=== PATIENT | female | born 1945 | race Caucasian/White ===

== ENCOUNTER 2020-03-04 08:22 | Outpatient (CLI) | payer OTHER, SELFPAY ==
--- NOTE | 2020-03-04 08:32 | MM_ITS ---
WS: [id number] BILATERAL SCREENING DIGITAL MAMMOGRAM WITH CAD HISTORY: SCREENING COMPARISON: 12/12/2018 and 11/19/2017 Bilateral CC and MLO views submitted. Computer aided detection analyzed. Breast composition: There are scattered areas of fibroglandular density. Area of architectural distor tion anteriorly on the RIGHT CC projection. Benign calcifications in each breast. MM/[place] [id number] IMPRESSION: BI-RADS: 0-Incomplete: Need additional imaging evaluation FOLLOW UP: Need Additional Imaging RIGHT breast: Spot compression views (CC ). True ML. Ultrasound to follow if ab normality persists.
== END 2020-03-04 08:23 | disposition home or self-care (01) ==
PROVIDERS: PCP Family Medicine; Visit Provider Family Medicine
DX: Z12.31 Encounter for screening mammogram for malignant neoplasm of breast (principal); R92.1 Mammographic calcification found on diagnostic imaging of breast
CPT/HCPCS: 77067

== ENCOUNTER 2020-04-03 12:53 | Outpatient (CLI) | payer OTHER, SELFPAY ==
--- NOTE | 2020-04-03 13:01 | US_ITS ---
WS: [id number] ADDITIONAL VIEWS RIGHT BREAST RIGHT breast ultrasound, limited HISTORY: ABNORMAL/INCONCLUSIVE FINDING ON IMAGING OF BREAST COMPARISON: 03/04/2020, 12/12/2018, 11/19/2017, 05/15/2016 Compression views right CC and MLO projection. True ML also submitted. The area of distortion central to the nipple resolves with additional imaging. There is persistent il l-defined and obscured dense fibroglandular tissue in the anterior and lateral RIGHT breast. As christian red to prior examinations the asymmetries are not significantly changed but not improved either. Calc ifications in the anterior RIGHT breast. RIGHT breast ultrasound, limited. Very dense fibroglandular tissue in the RIGHT breast at 9:00 near the area look. No discrete mass. Th ere is an ill-defined hypoechoic nodule measuring 8 x 5 x 6 mm 9:00 4 cm from the nipple of indetermi shilo etiology. Otherwise no suspicious findings. US/US breast RT limited* [id number] IMPRESSION: BI-RADS: 4-Suspicious Finding-Biopsy Should Be Considered FOLLOW-UP: Biopsy Recommended Ultrasound-guided biopsy recommended of the ill-defined hypoechoic nodule at 9: 00, 4 cm from the nipple. This may be a patch of fibroglandular tissue. Not see n on prior ultrasound from 2015.
== END 2020-04-03 12:54 | disposition home or self-care (01) ==
LOC: RADSHAW 12:56
PROVIDERS: PCP Family Medicine; Visit Provider Family Medicine
DX: R92.8 Other abnormal and inconclusive findings on diagnostic imaging of breast (principal); N63.15 Unspecified lump in the right breast, overlapping quadrants
CPT/HCPCS: 76642; 77065

== ENCOUNTER 2020-04-18 07:42 | Outpatient (CLI) | payer OTHER, SELFPAY ==
--- NOTE | 2020-04-18 08:45 | US_ITS ---
WS: [id number] ULTRASOUND-GUIDED RIGHT BREAST BIOPSY CLINICAL INFORMATION: Abnormal mammogram, Right breast nodule COMPARISON: None. FINDINGS: The procedure including risks, benefits, and complications were discussed with the patient who agreed to proceed. Using sterile technique patient was prepped and draped in the usual sterile fashion. Aft er 1% lidocaine utilizing real-time ultrasound guidance 5 14-gauge cores were obtained of the right b reast lesion at the 9 o'clock position. Subsequently a titanium clip was placed in the biopsy cavity. No immediate complications. Pathology demonstrates atypical ductal hyperplasia. No invasion identified. US/[place] [id number] IMPRESSION: 1. Uncomplicated ultrasound-guided right breast biopsy. 2. The pathology demonstrates atypical ductal hyperplasia. No invasion identif ied. BI-RADS: Post Biopsy FOLLOW UP: Surgical Biopsy Recommended PATHOLOGY DEMONSTRATES ATYPICAL DUCT HYPERPLASIA. RECOMMEND BREAST SURGERY CONS ULTATION FOR WIRE LOCALIZATION AND RESECTION.
== END 2020-04-18 07:43 | disposition home or self-care (01) ==
LOC: RAD 07:55
PROVIDERS: PCP Family Medicine; Visit Provider Family Medicine
DX: N60.91 Unspecified benign mammary dysplasia of right breast (principal); R92.8 Other abnormal and inconclusive findings on diagnostic imaging of breast; N63.10 Unspecified lump in the right breast, unspecified quadrant
CPT/HCPCS: 19083; 88305

== ENCOUNTER → 2020-05-19 13:58 | Outpatient (BNVA) | payer OTHER, SELFPAY | PROVIDERS: PCP Family Medicine; Visit Provider Surgery | DX: Z01.812 Encounter for preprocedural laboratory examination (principal); Z20.828 Contact with and (suspected) exposure to other viral communicable diseases | CPT/HCPCS: 87635 ==

== ENCOUNTER 2020-05-23 08:46 | Day surgery (SDC) | payer OTHER, SELFPAY ==
--- NOTE | 2019-05-23 | US_ITS ---
WS: [id number] ULTRASOUND-GUIDED RIGHT BREAST NEEDLE LOCALIZATION HISTORY: RIGHT breast needle localization. Procedure, risks and complications were explained to the patient. Consent is obtained. RIGHT breast mass localized at 9:00, 4 cm from the nipple. Skin is cleansed with ChloraPrep and anesthetized with 1% buffered lidocaine. Needle and guidewire placed to the area of concern with no complications. Ultrasound guidance performed during the needle localization. Guidewire is left within the lesion. Guidewire secured and no complications encountered. Patient is being transported to the OR suite. Specimen radiograph is also reviewed. Localization wire and RIGHT breast mass are present. RECOMMENDATIONS: 6 month diagnostic mammogram follow-up RIGHT breast. US/[place] [id number] IMPRESSION: 1. Uncomplicated wire localization of RIGHT breast mass at 9:00, 4 cm from the nipple. 2. Specimen contains the mass localized. PATHOLOGY RESULTS: Small focus of atypical ductal hyperplasia at the biopsy site. No malignancy. Dictated By: Pina Mcmahon DO Signed By: Signed Date/Time: DD/ 0941 MTDD
[2020-05-22 11:26] VITALS: BMI 49.1
--- NOTE | 2020-05-23 07:58 | US_ITS ---
WS: [id number] ULTRASOUND-GUIDED RIGHT BREAST NEEDLE LOCALIZATION HISTORY: RIGHT breast needle localization. Procedure, risks and complications were explained to the patient. Consent is obtained. RIGHT breast mass localized at 9:00, 4 cm from the nipple. Skin is cleansed with ChloraPrep and anesthetized with 1% buffered lidocaine. Needle and guidewire pl aced to the area of concern with no complications. Ultrasound guidance performed during the needle lo calization. Guidewire is left within the lesion. Guidewire secured and no complications encountered. Patient is being transported to the OR suite. Specimen radiograph is also reviewed. Localization wire and RIGHT breast mass are present. RECOMMENDATIONS: 6 month diagnostic mammogram follow-up RIGHT breast. US/[place] [id number] IMPRESSION: 1. Uncomplicated wire localization of RIGHT breast mass at 9:00, 4 cm from the nipple. 2. Specimen contains the mass localized. PATHOLOGY RESULTS: Small focus of atypical ductal hyperplasia at the biopsy sit e. No malignancy.
[2020-05-23 08:33] VITALS: BP 182/98; PULSE 79; RESP 18; TEMP 35.9; O2SAT 95
--- NOTE | 2020-05-23 09:07 | W.PM.OPSUD ---
Surgery/Procedure H&P Update DATE OF PROCEDURE: May 23, 2020 DATE H&P PERFORMED: 05/07/20 H&P UPDATE INFORMATION: No changes to prior documentation PLANNED PROCEDURE: Operation Date: 05/23/20 10:00 Proposed Procedures p Breast Biopsy Needle Localization(Right) - Yoni Lerner MD
[2020-05-23] MEDS: sodium chloride 0.9% 1,000 ML 30 ML IV (09:25)
--- NOTE | 2020-05-23 09:29 | P.ANESASSM_ITS ---
Pre-Anesthetic Assessment Pre-Anesthetic Assessment: Height/Weight: Height 1.65 m Weight 133.81 kg Temp Pulse Resp BP Pulse Ox 96.7 F L 79 18 182/98 95 05/23/20 08:33 05/23/20 08:33 05/23/20 08:33 05/23/20 08:33 05/23/20 08:33 Preop Diagnosis: Breast lump Proposed Procedure: Operation Date: 05/23/20 10:00 Proposed Procedures p Breast Biopsy Needle Localization(Right) - Yoni Lerner MD Familial anesthetic complications: None Was Beta Mily taken within 24 hours: N/A Last intake: Intake Last Liquid Date 05/23/20 Last Liquid Time 05:00 Last Solid Date 05/22/20 Last Solid Time 22:00 Social: Social History: No alcohol and No tobacco Exam: Pre-Anes Outpt Exam: alert, oriented x 3, clear to auscultation bilatera lly and regular rate & rhythm Airway: Cervical ROM: WNL MP: 4 Dentition: Other (implants in front) Pulmonary: Pulmonary: Asthma and COPD Comments: 2 L NC at night CV/HEM: CV/HEM: DVT and Palp Metabolic: Metabolic: Hyperlipidemia Neuropsych: Neuropsych: CVA (2016 - no residual deficits per patient, but her husbands states she doesn't talk as well as she used to) Anesthetic Plan: ASA status: 3 Anesthesia: MAC Other: Pt took phentermine yesterday Risk of > 500 ml blood loss (7ml/kg in children): No Other Pertinent Information: Patient and surgeon both counselled/informed of risk of proceeding when not off phentermine for 7 days. Although there are no official guidelines for stopping phentermine several recommendations have been made to stop 7 to 14 days prior to elective surgery. Patient and surgeon informed of risk of hemodynamic instability/catecholamine depletion/myocardial irritation associated with phentermine and anesthesia. This morning I did give patient option to reschedule, but she would like to proceed. Procedure is low risk, under MAC, with no alterations in fluid status, no risk for major blood loss, and low painful stimulus both intraop and post op. Meds/Allergies Current Medications: Current Medications Generic Name Dose Route Start Last Admin Trade Name Freq PRN Reason Stop Dose Admin Sodium Chloride 1,000 mls @ 30 ml s/hr 05/23/20 08:00 05/23/20 09:25 Sodium Chloride 0.9% IV 05/24/20 07:59 30 mls/hr .Q24H ELENA Administration PFSH Anesthesia PFSH: Social History (Updated 05/22/20 @ 10:58 by Blaire Franklin RN) Smoking and tobacco status: former smoker Data Anesthesia Cardiac Studies: No Data to Display
--- NOTE | 2020-05-23 10:53 | P.OP_ITS ---
Operative Report Date of procedure: May 23, 2020 Pre-op Diagnosis: Atypical ductal hyperplasia of the right breast. Pre-op Diagnosis: Post-op diagnosis: same Procedure Done: Right breast lumpectomy following preoperative needle localization. Specimens removed/disposition: Right breast specimen with wire in place. Surgeon: Yoni Lerner Anesthesia: MAC Estimated blood loss (mL): 5 Complications: None. Condition: stable Disposition: observation Procedure: The patient was brought to the operating room and was placed in a claudio pine position on the operating room table. A monitored anesthetic was induced. The right breast was prepped and draped in a sterile fashion, taking care not to disturb the localization wire which had been placed in radiology preoperatively. A combination of 2% lidocaine and 0.5% bupivacaine with 1-200,000 parts epinephrine was used for local anesthesia throughout the procedure. A curvilinear incision was carried out on the lateral aspect of the breast. Cautery was used to enter the breast tissue. The localization wire, which was entering inferiorly, was then brought into the incision. The tissue around the tip of the wire was completely excised using a combination of cautery and sharp dissection. The specimen was removed with the wire in place and was sent to radiology. The wound was irrigated with saline and 1 small bleeding point was controlled with cautery. No additional abnormalities were seen or palpated anywhere in the wound. The skin was reapproximated using a running subcuticular suture of 4-0 Vicryl. Benzoin and Steri-Strips were placed over the incision and a sterile bandage followed. The patient was taken to the recovery area in stable condition postoperatively.
[2020-05-23 11:07] VITALS: BP 125/70; PULSE 73; RESP 18; TEMP 36.6; O2SAT 98
[2020-05-23 11:24] VITALS: BP 152/77; PULSE 74; RESP 18; TEMP 36.9; O2SAT 95
--- NOTE | 2020-05-23 19:28 | ANE.PACU2 ---
Inpatient post-anesthesia follow up: Airway intact: Yes Vital signs: Temperature 98.4 F Pulse Rate 74 Respiratory Rate 18 Blood Pressure 152/77 Pulse Oximetry 95 Oxygen Delivery Me thod Room Air Oxygen Flow Rate Fraction of Inspir ed Oxygen Hydration adequate: Yes Nausea and vomiting: No Pain level: 2 Mental status: Baseline
== END 2020-05-23 11:40 | disposition home or self-care (01) ==
PROVIDERS: PCP Family Medicine; Visit Provider Surgery
PROC: (CPT 19301; principal; 2020-05-23 10:00)
DX: N60.91 Unspecified benign mammary dysplasia of right breast (principal); J44.9 Chronic obstructive pulmonary disease, unspecified; Z99.81 Dependence on supplemental oxygen; Z86.718 Personal history of other venous thrombosis and embolism; E78.5 Hyperlipidemia, unspecified; Z86.73 Personal history of transient ischemic attack (TIA), and cerebral infarction without residual deficits; Z87.891 Personal history of nicotine dependence; M19.90 Unspecified osteoarthritis, unspecified site
CPT/HCPCS: 19301; 12345; 19285; 88305; 96365; C1889; J0690; J2704; J3490; J7030

== ENCOUNTER → 2020-10-07 14:12 | Outpatient (BNVA) | payer OTHER, SELFPAY | PROVIDERS: PCP Family Medicine; Referring Provider Family Medicine; Visit Provider Specialist | DX: M25.561 Pain in right knee (principal); M25.562 Pain in left knee | CPT/HCPCS: 73560; 73565 ==

== ENCOUNTER 2021-01-02 10:47 | Outpatient (CLI) | payer OTHER, SELFPAY ==
[2021-01-02 11:15] VITALS: BP 144/89; PULSE 98; RESP 18; TEMP 36.6; O2SAT 93; BMI 48.4
[2021-01-02 11:44] VITALS: BP 122/78; PULSE 98; RESP 17; O2SAT 92
[2021-01-02 13:00] VITALS: BP 128/81; PULSE 92; RESP 16; TEMP 36.3; O2SAT 93
== END 2021-01-02 14:40 | disposition home or self-care (01) ==
PROVIDERS: PCP Family Medicine; Visit Provider Nurse Practitioner Family
DX: U07.1 COVID-19 (principal)
CPT/HCPCS: 96365

== ENCOUNTER 2022-04-20 09:53 | Outpatient (CLI) | payer OTHER, SELFPAY ==
--- NOTE | 2022-04-20 10:14 | MM_ITS ---
WS: [id number] DIAGNOSTIC BILATERAL DIGITAL BREAST TOMOSYNTHESIS MAMMOGRAPHY WITH CAD HISTORY: Follow-up prior biopsy 04/18/2020 and surgical excision COMPARISON: 03/04/2020, 12/12/2018 and 11/19/2017 TECHNIQUE: Bilateral craniocaudad, mediolateral oblique, and mediolateral views are submitted with to mosynthesis and SM. Computer aided detection utilized. Breast composition: There are scattered areas of fibroglandular density. Scattered asymmetries and ca lcifications. No new or suspicious masses or calcifications have developed. Postsurgical changes in t he anterior RIGHT breast. MM/[place] [id number] IMPRESSION: BI-RADS: 2-Benign FOLLOW UP: 1 Year Follow-up
== END 2022-04-20 09:54 | disposition home or self-care (01) ==
LOC: RAD 09:55
PROVIDERS: PCP Family Medicine; Visit Provider Family Medicine
DX: Z12.31 Encounter for screening mammogram for malignant neoplasm of breast (principal); R92.1 Mammographic calcification found on diagnostic imaging of breast
CPT/HCPCS: 77062; G0279

== ENCOUNTER → 2023-05-06 12:13 | Outpatient (BNVA) | payer OTHER, SELFPAY | PROVIDERS: PCP Family Medicine; Referring Provider Family Medicine; Visit Provider Internal Medicine Cardiovascular Disease | DX: R07.9 Chest pain, unspecified (principal); R06.02 Shortness of breath | CPT/HCPCS: 36415; 80048; 83880; 93005 ==

== ENCOUNTER 2023-05-18 09:50 | Outpatient (CLI) | payer OTHER, SELFPAY ==
--- NOTE | 2023-05-18 10:15 | USCV_ITS ---
Jose Alfredo Mildred Age: 77 Gender: F : 1945 Exam Date: 05/18/2023 10:19 Ordering Phys: Khanh Buckley MD ([email or web address]) Technologist: Staci Bronson Exam Location: [facility] – [place] Indication: SOB, Leg swelling, old DVT BP: 128 / 82 HR: 69 Rhythm: Sinus Technical Quality: Adequate MEASUREMENTS (Male / Female) Normal Values 2D ECHO LV Diastolic Diameter PLAX 4.8 cm 4.2 - 5.9 / 3.9 - 5.3 cm LV Systolic Diameter PLAX 3.2 cm IVS Diastolic Thickness 1.1 cm 0.6 - 1.0 / 0.6 - 0.9 cm IVS Systolic Thickness 1.4 cm LVPW Diastolic Thickness 0.9 cm 0.6 - 1.0 / 0.6 - 0.9 cm LVPW Systolic Thickness 1.4 cm LVOT Diameter 2.1 cm LV Ejection Fraction 2D Teich 62.2 % LV Ejection Fraction MOD 2C 39.5 % LV Ejection Fraction 2C AL 39.0 % LA Diameter 4.2 cm LA Width 2.2 cm LA Height 4.4 cm RA Width 4.2 cm RA Height 4.8 cm Aorta at Sinotubular Diameter 2.8 cm IVC Diameter 1.6 cm M-MODE Aortic Annulus Diameter 3.8 cm LA Ao Ratio MM 1.2 MV E Point Septal Separation 0.8 cm DOPPLER AV Peak Velocity 74.0 cm/s LVOT Peak Velocity 83.0 cm/s AV Area Cont Eq vti 3.8 cm squared AV Area Cont Eq pk 4.1 cm squared MV Peak Velocity 130.0 cm/s MV Area PHT 2.9 cm squared Mitral E to A Ratio 0.8 MV E' Velocity 41.0 cm/s Mitral E to MV E' Ratio 9.8 Mitral E to LV E' Lateral Ratio 8.3 Mitral E to LV E' Septal Ratio 12.1 TR Peak Velocity 68.3 cm/s TR Peak Gradient 1.9 mmHg Right Atrial Pressure 5.0 mmHg Pulmonary Artery Systolic Pressu 6.9 mmHg PV Peak Velocity 72.0 cm/s RV Acceleration Time 0.1 s RV Ejection Time 0.3 s RV AcT/ET 0.4 FINDINGS Left Ventricle Normal left ventricular size and systolic function, EF 57 %. Grade I/IV diastolic dysfunction (abnormal relaxation filling pattern), normal to mildly elevated filling pressures. Right Ventricle The right ventricle is normal in size and function. Right Atrium Mildly increased right atrial size. Left Atrium Mildly increased left atrial size. Mitral Valve Mild mitral annular calcification. Trace mitral valve regurgitation. Aortic Valve No gross abnormalities noted Tricuspid Valve No gross abnormalities noted Pulmonic Valve Pulmonic valve not well visualized. Pericardium No pericardial effusion. Aorta Normal aortic annulus size. IVC Normal inferior vena cava. CONCLUSIONS Normal left ventricular size and systolic function, EF 57 %. (Echo contrast - Optison was used to delineate the endocardium and to estimate the LV ejection fraction) grade I/IV diastolic dysfunction (abnormal relaxation filling pattern), normal to mildly elevated filling pressures. Mild biatrial enlargement. Mild mitral annular calcification. Trace mitral valve regurgitation. There is no pericardial effusion. There are no intracardiac masses. Comparison with the previous study is difficult because of the difference in the technical quality. Dr Khanh Buckley MD FACC (Electronically Signed) Final Date: 21 May 2023 19:57 S
[2023-05-18] MEDS: perflutren protein-a microsphr 0.22 mg/mL SDV 3 mL IV (11:10)
--- NOTE | 2023-05-18 12:30 | USCV_ITS ---
Mildred Veliz Age: 77 Gender: F : 1945 Exam Date: 05/18/2023 11:11 Ordering Phys: Khanh Buckley MD ([email or web address]) Technologist: CT Exam Location: [facility] Indication: HISTORY: PROCEDURES: FINDINGS: large pt, small venous structures noted, no varicosities Non pulsatile flow pattern. The veins were found to be easily compressible with spontaneous blood flow. The greater saphenous vein at the mid, distal and the below-knee segments were not visualized on the left side. On the right side the greater 70s vein was not visualized in the distal and below-knee levels. The recent found to be easily compressible with a spontaneous blood flow. CONCLUSIONS No evidence of DVT in the above-mentioned identifiable veins. The venous segments are not visualized at the distal and below-knee level of the greater saphenous vein on the right side and mid, distal and below-knee segments on the left side. Dr Khanh Buckley MD FACC (Electronically Signed) Final Date: 21 May 2023 16:20 S
== END 2023-05-18 09:51 | disposition home or self-care (01) ==
LOC: RAD 09:50
PROVIDERS: PCP Family Medicine; Visit Provider Internal Medicine Cardiovascular Disease
DX: M79.89 Other specified soft tissue disorders (principal); Z86.718 Personal history of other venous thrombosis and embolism; R06.02 Shortness of breath; I51.89 Other ill-defined heart diseases; I34.81 Nonrheumatic mitral (valve) annulus calcification; I51.7 Cardiomegaly
CPT/HCPCS: 93970; C8929; Q9956

== ENCOUNTER 2023-08-09 19:01 | Emergency (ER) | payer OTHER, MEDICARE, SELFPAY ==
[2023-08-09] VITALS (7 sets, daily range): BP systolic 138–184; BP diastolic 69–109; PULSE 76–87; RESP 18; TEMP 36.6; O2SAT 90–96
--- NOTE | 2023-08-09 19:10 | ECG_ITS ---
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 Measurements Intervals Sage Rate: 76 P: 51 CO: 193 QRS: -51 QRSD: 82 T: 59 QT: 401 QTc: 452 Interpretive Statements SINUS RHYTHM POSSIBLE LEFT ATRIAL ENLARGEMENT [-0.1mV P-WAVE IN V1/V2] LEFT ANTERIOR FASCICULAR BLOCK [QRS AXIS <= -45, QR IN I, RS IN II] SEPTAL MYOCARDIAL INFARCTION , PROBABLY OLD [40+ ms Q WAVE IN V1/V2] Compared to ECG 05/06/2023 12:22:48 Left anterior fascicular block now present Right ventricular hypertrophy no longer present Myocardial infarct finding still present Electronically Signed On 08-09-2023 21:49:10 CDT by Fish Ohara M.D. [id number]
[2023-08-09 19:39] LABS: Basophils # 0.1 10^3/uL (0.0-0.1); Basophils % 0.9 %; Eosinophils # 0.2 10^3/uL (0.0-0.8); Hematocrit 50.9 % (36-47); Lymphocytes # 1.9 10^3/uL (0.8-4.8); Mean Corpuscular HGB Conc 31.4 g/dL (30-55); Mean Corpuscular Hemoglobin 30.5 pg (27-33); Mean Platelet Volume 10.6 fL (7.4-10.4); Monocytes # 0.8 10^3/uL (0.2-0.9); Monocytes % 8.4 %; Neutrophils # 6.55 10^3/uL (1.8-7.7); Neutrophils % 68.4 %; Nucleated Red Blood Cells % 0 %; Platelet Count 232 10^3/cmm (157-399); Red Blood Count 5.25 10^6/uL (3.85-5.65); Red Cell Distribution Width 13.2 % (12.1-15.1); White Blood Count 9.59 10^3/uL (3.29-11.43)
[2023-08-09 19:59] LABS: Alanine Aminotransferase 8 U/L (0-33); Albumin Level 4.4 g/dL (3.5-5.2); Alkaline Phosphatase 101 U/L (35-105); Anion Gap 16.5 (5-19); Aspartate Amino Transferase 14 U/L (0-32); Blood Urea Nitrogen 25 mg/dL (8-23); Calcium 9.3 mg/dL (8.5-10.5); Carbon Dioxide 27 mmol/L (22-29); Chloride 108 mmol/L (98-107); Creatinine Clr Calc Pharmacy 86.3389; Globulin 3.1 g/dL (1.3-4.6); Glucose 90 mg/dL (65-115); Osmolality Calculated 308 mOsm/kg (285-295); Potassium 4.5 mmol/L (3.5-5.1); Sodium 147 mmol/L (136-145); Total Bilirubin 0.4 mg/dL (0.15-1.2); Total Protein 7.5 g/dL (6.6-8.7)
[2023-08-09 20:03] LABS: Acetaminophen < 5.0 ug/mL (10-30); Alcohol Level < 10 mg/dL (0-10); Salicylate < 0.3 mg/dL (3-10)
--- NOTE | 2023-08-09 20:33 | CTR_ITS ---
PROCEDURE INFORMATION: Exam: CT Head Without Contrast Exam date and time: 08/09/2023 8:39 PM Age: 77 years old Clinical indication: Altered mental status/memory loss; Confusion or disorientation; Patient HX: Worsening confusion over last few weeks per daughter. History of prior CVA. ; Additional info: AMS TECHNIQUE: Imaging protocol: Computed tomography of the head without contrast. Radiation optimization: All CT scans at this facility use at least one of these dose optimization techniques: automated exposure control; mA and/or kV adjustment per patient size (includes targeted exams where dose is matched to clinical indication); or iterative reconstruction. COMPARISON: CT Head wo IV contrast* [id number] 11/19/2015 9:39 PM RADIATION DOSE METRICS: Total DLP (mGy-cm): 1093.28 FINDINGS: Brain: No acute intracranial hemorrhage, acute large territory infarct, or obvious mass lesion. Age appropriate diffuse cerebral volume loss. Mild chronic white matter changes, likely to be chronic small vessel ischemic changes. Encephalomalacia in the superior left cerebellum, most consistent with an old infarct. Cerebral ventricles: No ventriculomegaly. Paranasal sinuses: Visualized sinuses are unremarkable. No fluid levels. Mastoid air cells: Visualized mastoid air cells are well aerated. Bones/joints: No acute fracture. Mild hyperostosis frontalis interna. Soft tissues: Unremarkable. Other findings: No visible contraindication to MRI on this exam. CT/CT head wo con* [id number] IMPRESSION: 1. No acute intracranial abnormality identified. 2. 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
[2023-08-09 20:35] LABS: Influenza A by IFA Negative (Negative); Influenza B by IFA Negative (Negative); RSV Transfer Patient (ED) Negative (Negative); SARS Covid-2 Antigen Negative (Negative)
[2023-08-09 22:07] LABS: Amphetamines Screen Urine Negative (Negative); Barbiturates Screen Urine Negative (Negative); Benzodiazepines Screen Urine Negative (Negative); Cocaine Screen Urine Negative (Negative); Opiate Screen Urine Negative (Negative); PCP Screen Urine Negative (Negative); THC Screen Urine Negative (Negative)
[2023-08-09 22:11] LABS: Specific Gravity, Urine 1.025 (1.005-1.030); Urine Appearance Hazy (CLEAR); Urine Color Yellow (Yellow); pH Urine 5 (5-7)
[2023-08-09 22:12] LABS: Add Urine Microscopic? YES; Bilirubin Urine Neg (Negative); Blood Urine 3+ (Negative); Glucose Urine UA Norm (Normal); Ketones Urine Negative (Negative); Leukocyte Esterase Urine 1+ (Negative); Nitrate Urine Positive (Negative); Protein Urine Trace (Negative); Transitional Epi Cells Urine 0-4 /hpf; Urobilinogen Urine Neg (Negative); WBC Urine 25-40 /hpf (0-5)
--- NOTE | 2023-08-09 22:12 | ED_ITS ---
HPI - Altered Mental Status 2 General: Chief Complaint: Altered Mental Status Stated Complaint: DAYANNA Daniel sent over Time Seen by Provider: 08/09/23 19:11 History of Present Illness: 77-year-old female presents emergency de partment at the request of her primary care provider Dr. Shruthi Daniel. The patient is accompanied by her daughter who is a nursing staff member here at this hospital. The patient states that she has become more depressed over the past 3 to 4 months and in general over the past 6 months has become more sedentary. Patient states that she has chronic bilateral knee pain and chronic back pain and states that she no longer goes outside but only sits inside her house. She states she feels like she wants to be more active but just does not. Patient states that she is not taking her medications as prescribed and states that she just feels more depressed and hopeless. She denies suicidal or homicidal ideation but states that she understands that if she passes away she has excepted that. She states that she feels like she does not get any dina from her previous activities that she enjoyed in the past. Patient did have a history of a previous CVA and the patient's daughter states that she feels like her mother is intermittently more forgetful now days. Patient states she has had a significant weight gain and because of her inactivity is unable to lose the weight, which makes her more depressed. Associated symptoms: Reports depression; Deny homicidal ideation or suicidal ideation Review of Systems 2 General: Reports: 10 or more systems reviewed and unremarkable except in HPI and below Musc: Reports: back pain and joint pain Psych: Reports: depression, hopelessness and loss of interest; Denies: suicidal ideation or homicidal ideation [facility] ED 2 PFSH: Medical History Cerebrovascular accident (CVA) History of palpitations DVT of leg (deep venous thrombosis) Social History Smoking and tobacco/nicotine status: former use of tobacco/nicotine Physical Exam 2 Narrative: Constitutional: the patient appears well nourished and with normal development. Vital signs reviewed as documented. Morbidly obese, HENMT: Normocephalic, atraumatic. External ears normal appearance without drainage. Nose without drainage, normal appearance. Mucus membranes moist. Neck is supple, No jugular venous distension, trachea is midline, no appreciable carotid bruits. No lymphadenopathy. No meningeal signs. Flexion, extension and lateral rotation is without pain. Eyes: Pupils are equal, round, reactive to light and accommodation. No scleral icterus. Extra-ocular movement are intact. Thorax is symmetrical and with equal rise and fall with respirations. Resp: Lungs are clear to auscultation. No wheezes, rales, crackles or ronchi at present. Cardio: Regular rate and rhythm. Positive S1, S2. No appreciable murmurs, rubs or gallops. GI: Abdominal exam reveals normal bowel sounds to all quadrants. No organomegaly. No obvious palpable masses noted. No hepatomegally appreciated. Soft, non-tender to palpation. Extremity: Extremities are non-edematous and both femoral and pedal pulses are 2+ and equal bilaterally. Moves all extremities well, sensation in all extremities. Neuro: Alert and oriented x4, person, place, time and situation. Cranial nerves II through XII are grossly intact, there is no focal neurological deficits that I can appreciate at present. Sensation intact to all extremities. 2-point discrimination intact. Light touch intact to all extremities. Motor strength in the upper and lower extremities are equal and bilateral 5/5. Psych: Cooperative, calm, normal thought process, appropriate judgment. Depressed thought pattern, no SI/HI Skin: No lesions, rashes. No gross abnormalities noted. Back: Symmetrical, no obvious deformity, No CVA tenderness Course 2 Vital Signs: Vital signs: Vital Signs Temperature 97.8 F 08/09/23 19:19 Pulse Rate 78 08/09/23 22:28 Respiratory Rate 18 08/09/23 19:19 Blood Pressure 184/89 08/09/23 22:00 Pulse Oximetry 90 08/09/23 22:28 Oxygen Delivery Me thod Nasal Cannula 08/09/23 22:00 Oxygen Flow Rate 2 08/09/23 19:34 MDM - Altered Mental Status Medical Decision Making Physical exam completed and documented I did obtain a CBC and CMP which are essentially unremarkable. The patient's sodium level is 147 and chloride is 108. Urinalysis did demonstrate positive findings consistent with a urinary tract infection to include positive nitrates, leukocytes, WBCs per high-power field and 3+ bacteria. CT scan of the patient's head was obtained for evaluation and did not demonstrate any acute intracranial abnormalities. It did demonstrate an old superior left cerebellar infarct chronic small vessel ischemic changes and encephalomalacia in the superior left cerebellum-consistent with an old infarction. I did have an extensive discussion with the patient and at the patient's request her daughter and discussed patient being compliant with her medications as well as importance of follow-up and referral for behavioral health evaluation. Medical Records I reviewed the patient's medical records. Lab Data I reviewed the patient's lab results. 08/09/23 19:33 08/09/23 19:[address] 08/09/23 20:33 IMPRESSION: 1. No acute intracranial abnormality identified. 2. 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 Laboratory Results WBC 9.59 10^3/uL (3.29-11.43) 08/09/23 19: RBC 5.25 10^6/uL (3.85-5.65) 08/09/23 19: Hgb 16.00 g/dL (11.27-16.99) 08/09/23 19: Hct 50.9 % (36-47) H 08/09/23 19: MCV 97.0 fl (85-98) 08/09/23 19: MCH 30.5 pg (27-33) 08/09/23 19: MCHC 31.4 g/dL (30-55) 08/09/23 19: RDW 13.2 % (12.1-15.1) 08/09/23 19: Plt Count 232 10^3/cmm (157-399) 08/09/23: MPV 10.6 fL (7.4-10.4) H 08/09/23 19: Neut % (Auto) 68.4 % 08/09/23 19: Lymph % (Auto) 20.0 % 08/09/23 19: [place] % (Auto) 8.4 % 08/09/23 19: Eos % (Auto) 2.0 % 08/09/23 19: Baso % (Auto) 0.9 % 08/09/23 19: Neut # (Auto) 6.55 10^3/uL (1.8-7.7) 08/09/23 19: Lymph # (Auto) 1.9 10^3/uL (0.8-4.8) 08/09/23 19:33 [place] # (Auto) 0.8 10^3/uL (0.2-0.9) 08/09/23 19: Eos # (Auto) 0.2 10^3/uL (0.0-0.8) 08/09/23 19:33 Baso # (Auto) 0.1 10^3/uL (0.0-0.1) 08/09/23 19: Nucleated RBC % (auto) 0 % 08/09/23 19: Nucleated RBCs # 0.0 /100WBC 08/09/23 19:33 Sodium 147 mmol/L (136-145) H 08/09/23 19:33 Potassium 4.5 mmol/L (3.5-5.1) 08/09/23 19:33 Chloride 108 mmol/L (98-107) H 08/09/23 19:33 Carbon Dioxide 27 mmol/L (22-29) 08/09/23 19:33 Anion Gap 16.5 (5-19) 08/09/23 19:33 BUN 25 mg/dL (8-23) H 08/09/23 19:33 Creatinine 0.7 mg/dL (0.5-0.9) 08/09/23 19:33 GFR Calculation Not Reportable 08/09/23 19:33 Glucose 90 mg/dL (65-115) 08/09/23 19:33 Calculated Osmolality 308 mOsm/kg (285-295) H 08/09/23 19:33 Calcium 9.3 mg/dL (8.5-10.5) 08/09/23 19:33 Total Bilirubin 0.4 mg/dL (0.15-1.2) 08/09/23 19:33 AST 14 U/L (0-32) 08/09/23 19:33 ALT 8 U/L (0-33) 08/09/23 19:33 Alkaline Phosphatase 101 U/L (35-105) 08/09/23 19:33 Total Protein 7.5 g/dL (6.6-8.7) 08/09/23 19:33 Albumin 4.4 g/dL (3.5-5.2) 08/09/23 19:33 Globulin 3.1 g/dL (1.3-4.6) 08/09/23 19:33 Urine Color Yellow (Yellow) 08/09/23 21:44 Urine Appearance Hazy (CLEAR) A 08/09/23 21:44 Urine pH 5 (5-7) 08/09/23 21:44 Ur Specific [place] 1.025 (1.005-1.030) 08/09/23 21:44 Urine Protein Trace (Negative) 08/09/23 21:44 Urine Glucose (UA) Norm (Normal) 08/09/23 21: Urine Ketones Negative (Negative) 08/09/23 21: Urine Blood 3+ (Negative) H 08/09/23 21: Urine Nitrate Positive (Negative) H 08/09/23: Urine Bilirubin Neg (Negative) 08/09/23 21: Urine Urobilinogen Neg mg/dL (Negative) 08/09/23 21:44 Ur Leukocyte Esterase 1+ (Negative) H 08/09/23 21:44 Urine RBC 5-10 /hpf (0-2) H 08/09/23 21:44 Urine WBC 25-40 /hpf (0-5) H 08/09/23 21:44 Ur Squamous Epith Cells None /hpf (0-5) 08/09/23 21:44 Ur Transition Epith Cell 0-4 /hpf 08/09/23 21:44 Amorphous Sediment Not Reportable 08/09/23 21:44 Urine Bacteria 3+ /hpf (NONE) H 08/09/23 21:44 Urine Mucus 1+ /hpf 08/09/23 21:44 Salicylates < 0.3 mg/dL (3-10) L 08/09/23 19:33 Urine Opiates Screen Negative ng/mL (Negative) 08/09/23 21:44 Acetaminophen < 5.0 ug/mL (10-30) L 08/09/23 19:33 Ur Barbiturates Screen Negative ng/mL (Negative) 08/09/23 21:44 Ur Phencyclidine Scrn Negative ng/mL (Negative) 08/09/23 21:44 Ur Amphetamines Screen Negative ng/mL (Negative) 08/09/23 21:44 U Benzodiazepines Scrn Negative ng/mL (Negative) 08/09/23 21: Urine Cocaine Screen Negative ng/mL (Negative) 08/09/23 21:44 U Marijuana (THC) Screen Negative ng/mL (Negative) 08/09/23 21:44 Ethyl Alcohol < 10 mg/dL (0-10) 08/09/23 19:33 Influenza Type A Ag Negative (Negative) 08/09/23 19:57 Influenza Type B Ag Negative (Negative) 08/09/23 19:57 RSV Antigen Negative (Negative) 08/09/23 19:57 SARS-CoV-2 Ag (Rapid) Negative (Negative) 08/09/23 19:57 All radiology interpretation(s) finalized by discharge Discharge Plan Discharge Patient Disposition: Home Clinical Impression: Depression Condition: Stable Prescriptions: No Action diclofenac sodium 1 % gel 2 g topical QID Rx Instructions: use tid furosemide [Lasix] 40 mg tablet 40 mg PO DAILY Qty: 90 3RF potassium chloride 8 mEq tablet extended release 20 meq PO DAILY Qty: 75 3RF carvedilol 6.25 mg tablet 6.25 mg PO BID venlafaxine 75 mg capsule,extended release 24hr 75 mg PO DAILY ProAir HFA 90 mcg/actuation Hfa Aerosol Inhaler 1 inh INHALATION QID celecoxib 100 mg capsule 100 mg PO BID hydrocodone-acetaminophen 5-325 mg tablet 1 - 2 tab PO Q5H PRN (Reason: pain) Qty: 20 0RF Discharge Orders: Discharge ED (Routine); Ordered 08/09/23 Ordered By: Deep Alejandre Referrals: Shruthi Daniel MD [Primary Care Provider] - Anirudh Dumas MD [Physician] - Discharge Diet: Usual diet Patient Instructions: Altered Mental Status (ED), Opioid Safety, Pain Management Activity Restrictions/Additional Instructions: Activity Restrictions/Additional Instructions: Thank you for choosing [facility] for your healthcare needs today. Please realize that you were seen in the Emergency Department and that we are providing you with an emergency medical screening exam and this may not be a complete and all inclusive of all the testing and or medical work-up that you may need to determine your ailment or severity of your illness. It is very important that you follow-up as instructed with your Primary care provider or Specialist for additional evaluation and to discuss your medical treatment plan. Contact the behavioral health center or crisis center to make a follow-up appointment to discuss getting help for your depression Coding Level of Care Code ED Internal Audit Manager for Carmita Salazar
[2023-08-09 22:13] LABS: Add Urine Culture? Yes; Bacteria Urine 3+ /hpf; Mucus Urine 1+ /hpf
== END 2023-08-09 22:29 | disposition home or self-care (01) ==
PROVIDERS: Emergency Provider Internal Medicine; PCP Family Medicine
DX: F32.A Depression, unspecified (principal); Z11.52 Encounter for screening for COVID-19; Z86.73 Personal history of transient ischemic attack (TIA), and cerebral infarction without residual deficits; Z87.891 Personal history of nicotine dependence
CPT/HCPCS: 36415; 70450; 80053; 80306; 80307; 81001; 85025; 87077; 87086; 87186; 87426; 87804; 87899; 93005; 99284

== ENCOUNTER 2023-08-22 09:59 | Inpatient (IN) | payer OTHER, MEDICARE, SELFPAY ==
[2023-08-22] VITALS (43 sets, daily range): BP systolic 52–120; BP diastolic 37–83; PULSE 86–107; RESP 16–26; TEMP 35.8–37.3; O2SAT 81–99; BMI 46.5
--- NOTE | 2023-08-22 10:21 | ED_ITS ---
HPI - Altered Mental Status 2 General: Chief Complaint: Altered Mental Status Stated Complaint: sob, left arm weakness Time Seen by Provider: 08/22/23 10:20 History of Present Illness: 77-year-old female presents to the emerg ency department with her family member. Family member states the patient at approximately 2300 last night had left hand weakness and left lower leg weakness. Patient is awake alert and oriented x 4 patient has been seen here previously on 08/09/2023 and has a history of CVA, hypertension, CHF. Patient states she has had a wet nonproductive cough for the previous 1 week. She states she has been seen by her primary care provider and was recently prescribed Macrobid for urinary tract infection. She states she started the Macrobid yesterday and had a single dose. From the patient's previous CVA she does have expressive aphasia which was noted previously. Review of Systems 2 General: Reports: 10 or more systems reviewed and unremarkable except in HPI and below Const: Reports: fatigue and malaise Resp: Reports: dyspnea, productive cough, wheezing and chest congestion : Reports: dysuria and urinary frequency PFSH ED 2 PFSH: Medical History (Updated 08/22/23 @ 17:51 by Alberto Nevarez MD) Arthritis Morbid obesity with body mass index of 45.0-49.9 in adult Cerebrovascular accident (CVA) History of palpitations DVT of leg (deep venous thrombosis) Surgical History (Updated 08/22/23 @ 17:41 by Alberto Nevarez MD) Hx of breast biopsy Social History Smoking and tobacco/nicotine status: former use of tobacco/nicotine Physical Exam 2 Narrative: Constitutional: the patient appears acutely ill, frail. Acute respiratory distress. Vital signs reviewed as documented. HENMT: Normocephalic, atraumatic. External ears normal appearance without drainage. Nose without drainage, normal appearance. Mucus membranes moist. Neck is supple, No jugular venous distension, trachea is midline, no appreciable carotid bruits. No lymphadenopathy. No meningeal signs. Flexion, extension and lateral rotation is without pain. Eyes: Pupils are equal, round, reactive to light and accommodation. No scleral icterus. Extra-ocular movement are intact. Thorax is symmetrical and with equal rise and fall with respirations. Resp: Significant increased work of breathing, coarse rhonchi noted bilaterally. Wet sounding cough. Cardio: Regular rate and rhythm. Positive S1, S2. No appreciable murmurs, rubs or gallops. GI: Abdominal exam reveals normal bowel sounds to all quadrants. No organomegaly. No obvious palpable masses noted. No hepatomegally appreciated. Soft, non-tender to palpation. Extremity: Bilateral lower extremities are 3+ edema. Both femoral and pedal pulses are 2+ and equal bilaterally. Moves all extremities well, sensation in all extremities. Neuro: Alert and oriented x4, person, place, time and situation. Cranial nerves II through XII are grossly intact, there is no focal neurological deficits that I can appreciate at present. Sensation intact to all extremities. 2-point discrimination intact. Light touch intact to all extremities. Motor strength in the upper and lower extremities are equal and bilateral 5/5. Psych: Cooperative, calm, normal thought process, appropriate judgment. Skin: No lesions, rashes. No gross abnormalities noted. Back: Symmetrical, no obvious deformity, No CVA tenderness Course 2 ED course: Procedure Note: Ultrasound Guided Central Venous Catheter (CVC) Placement Indication: Hemodynamic monitoring/Intravenous access Consent obtain as documented. Maximal Sterile Barrier Technique utilized and included appropriate hand washing before and after the procedure, use of Cap, mask, sterile gown, sterile gloves and sterile full body drape. A time-out was completed verifying correct patient, procedure, site, positioning, and special equipment if applicable. The patient was placed in a dependent position appropriate for central line placement based on the vein to be cannulated. The patient?s <right> < neck> was prepped and draped in sterile fashion. 1% Lidocaine was used to anesthetize the surrounding skin area. A triple lumen <7-Prydeinig> Cordis catheter was introduced into the the <internal jugular vein> using the Seldinger technique <and under ultrasound guidance>. The catheter was threaded smoothly over the guide wire and appropriate blood return was obtained. Each lumen of the catheter was evacuated of air and flushed with sterile saline. The catheter was then sutured in place to the skin and a sterile dressing applied. Perfusion to the extremity distal to the point of catheter insertion was checked and found to be adequate. Post-procedure xray was obtained and reviewed and proper placement of the catheter was verified. Estimated Blood Loss: <_4ml___> The patient tolerated the procedure well and there were no complications. Vital Signs: Vital signs: Vital Signs Temperature 98.6 F 08/22/23 23:47 Pulse Rate 97 08/22/23 23:45 Respiratory Rate 21 H 08/22/23 23:15 Blood Pressure 114/67 08/22/23 23:45 Pulse Oximetry 97 08/22/23 23:45 Oxygen Delivery Me thod Nasal Cannula 08/22/23 19:57 Oxygen Flow Rate 5 08/22/23 19:57 MDM - Altered Mental Status Medical Decision Making Physical exam completed and documented, I did obtain a CBC which demonstrated at 24,000 white count, procalcitonin 8.95, sodium 136, potassium of 5.5, chloride 97, anion gap of 22.5 BUN of 57, creatinine of 5.2 patient's previous creatinine was 0.7 given elevated azotemia I am concerned for acute kidney failure secondary to dehydration and urinary tract infection. Patient's lactic acid was 1.4. Chest x-ray was obtained and demonstrated left lower lobe pneumonia, given the patient's initial presentation of left upper and lower extremity weakness I did obtain a CT scan of her head that demonstrated a tiny right frontal cortical infarct suspected in the region of the right precentral gyrus which does appear to be acute secondary to her previous CT scan on 08/09/2023. I did contact [facility] teleneurology and spoke with Dr. Chowdary who provided recommendations that were ultimately conveyed to the hospitalist physician. Given the patient's continued decline in her blood pressure patient did require additional vascular access and a central line was placed as documented. Levophed was initiated for blood pressure support and the patient was transferred to the intensive care unit for additional evaluation treatment and care after receiving antibiotics and blood cultures here in the emergency department. Given the patient's increased work of breathing elevated BNP and coarse sounding breath sounds and after review of the chest x-ray I did opt to only provide 2 L of IV fluid rehydration given concern for pulmonary edema and worsening respiratory status. Medical Records I reviewed the patient's medical records. Lab Data I reviewed the patient's lab results. 08/22/23 17:26 08/23/23 00:[address] 08/22/23 10:24 IMPRESSION: Tiny right frontal cortical infarct is suspected in the region of the right precentral gyrus. No significant mass effect or hemorrhage. THIS REPORT CONTAINS FINDINGS THAT MAY BE CRITICAL TO PATIENT CARE. The findings were verbally communicated via telephone conference with Dr. Deep Alejandre at 11:10 AM CDT on 08/22/2023. The findings were acknowledged and understood. Head/Neck CTA 08/22/23 10:44 IMPRESSION: CTA head demonstrates no intracranial large vessel occlusion or flow-limiting stenosis. IMPRESSION: 1. CTA neck shows bilateral carotid atherosclerosis without evidence of hemodynamically significant stenosis. 2. Both vertebral arteries are patent without evidence of flow-limiting stenosis. 3. Mass at the base of the neck on the right, posterior to the right common carotid artery, has increased in size since 2010, apparently at a slow growth rate given the long interval. Etiology is undetermined. It could represent parathyroid tumor, enlarged lymph node, neurogenic tumor, etc.. 4. Chronic cervical spondylosis. REFERENCES: NASCET CRITERIA. The degree of stenosis in the cervical segment of the internal carotid artery is based on NASCET criteria. Normal is no stenosis. Mild is less than 50% stenosis. Moderate is 50-69% stenosis. Severe is 70% to 99% stenosis. Total occlusion is no detectable patent lumen. Abdomen/Pelvis CT 08/22/23 12:15 IMPRESSION: 1. Pneumonia most severely affecting left lower lobe. 2. Distended gallbladder, nonspecific. No gallbladder wall thickening or biliary duct dilation is seen. 3. No other evidence of acute abnormality. Multiple incidental and/or nonacute findings as reported above. Chest X-Ray 08/22/23 14:05 IMPRESSION: 1. Right internal jugular venous catheter. No pneumothorax. 2. Mild worsening central vascular congestion and bibasilar opacities may represent edema or worsening atelectasis/consolidation. Chest CT 08/22/23 14:19 IMPRESSION: 1. Extensive bilateral pneumonia with mucous plugging 2. Emphysematous changes COMMENTS: The presence of pulmonary emphysema on CT is an independent risk factor for lung cancer. In the absence of a history or active diagnosis of lung cancer, it is recommended that this patient with emphysema be evaluated for enrollment in a low dose CT lung cancer screening program. Laboratory Results WBC 23.38 10^3/uL (3.29-11.43) H 08/22/23 10:30 RBC 4.53 10^6/uL (3.85-5.65) 08/22/23 10:30 Hgb 13.60 g/dL (11.27-16.99) 08/22/23 10:30 Hct 43.0 % (36-47) 08/22/23 10:30 MCV 94.9 fl (85-98) 08/22/23 10:30 MCH 30.0 pg (27-33) 08/22/23 10:30 MCHC 31.6 g/dL (30-55) 08/22/23 10:30 RDW 13.6 % (12.1-15.1) 08/22/23 10:30 Plt Count 258 10^3/cmm (157-399) 08/22/23 10:30 MPV 10.5 fL (7.4-10.4) H 08/22/23 10:30 Neut % (Auto) 88.4 % 08/22/23 10:30 Lymph % (Auto) 2.7 % 08/22/23 10:30 [place] % (Auto) 4.8 % 08/22/23 10:30 Eos % (Auto) 0.0 % 08/22/23 10:30 Baso % (Auto) 0.5 % 08/22/23 10:30 Neut # (Auto) 20.68 10^3/uL (1.8-7.7) H 08/22/23 10:30 Lymph # (Auto) 0.6 10^3/uL (0.8-4.8) L 08/22/23 10:30 [place] # (Auto) 1.1 10^3/uL (0.2-0.9) H 08/22/23 10:30 Eos # (Auto) 0.0 10^3/uL (0.0-0.8) 08/22/23 10:30 Baso # (Auto) 0.1 10^3/uL (0.0-0.1) 08/22/23 10:30 Nucleated RBC % (auto) 0 % 08/22/23 10:30 Nucleated RBCs # 0.0 /100WBC 08/22/23 10:30 PT 14.80 SECONDS (12.1-14.9) 08/22/23 10:30 INR 1.12 (0.8-1.2) 08/22/23 10:30 Specimen Type Arterial 08/22/23 10:29 Sample Site Radial, right 08/22/23 10:29 ABG pH 7.27 (7.35-7.45) L 08/22/23 10:29 ABG pCO2 45.2 mmHg (35-45) H 08/22/23 10:29 ABG pO2 81.4 mmHg (80.0-100.0) 08/22/23 10:29 ABG PO2/FiO2 Ratio 0 08/22/23 10:29 ABG HCO3 20.7 mmol/L (22-26) L 08/22/23 10:29 ABG Base Excess -6.2 mmol/L (-2.0-2.0) L 08/22/23 10:29 Gilmer Test Pos 08/22/23 10:29 Hematocrit 41.9 % (37-47) 08/22/23 10:29 O2 Delivery Device Nc 08/22/23 10:29 O2 Liters/Min 4.5 % 08/22/23 10:29 FiO2 38.0 % 08/22/23 10:29 Med Care Manager ID glc 08/22/23 10:29 Sodium 136 mmol/L (136-145) 08/22/23 10:30 Potassium 5.5 mmol/L (3.5-5.1) H 08/22/23 10:30 Chloride 97 mmol/L (98-107) L 08/22/23 10:30 Carbon Dioxide 22 mmol/L (22-29) 08/22/23 10:30 Anion Gap 22.5 (5-19) H 08/22/23 10:30 BUN 57 mg/dL (8-23) H 08/22/23 10:30 Creatinine 5.2 mg/dL (0.5-0.9) H 08/22/23 10:30 GFR Calculation Not Reportable 08/22/23 10:30 Glucose 84 mg/dL (65-115) 08/22/23 10:30 POC Glucose 80 mg/dL (70-110) 08/22/23 10:26 Calculated Osmolality 297 mOsm/kg (285-295) H 08/22/23 10:30 Lactic Acid 1.4 mmol/L (0.5-2.2) 08/22/23 10:30 Calcium 7.5 mg/dL (8.5-10.5) L 08/22/23 10:30 Magnesium 2.5 mg/dL (1.7-2.3) H 08/22/23 10:30 Total Bilirubin 1.0 mg/dL (0.15-1.2) 08/22/23 10:30 AST 30 U/L (0-32) 08/22/23 10:30 ALT 12 U/L (0-33) 08/22/23 10:30 Alkaline Phosphatase 161 U/L (35-105) H 08/22/23 10:30 NT-Pro-B Natriuret Pep 3266 pg/mL (0-450) H 08/22/23 10:30 Total Protein 7.5 g/dL (6.6-8.7) 08/22/23 10:30 Albumin 3.4 g/dL (3.5-5.2) L 08/22/23 10:30 Globulin 4.1 g/dL (1.3-4.6) 08/22/23 10:30 Vitamin B12 1036 pg/mL (232-1245) 08/22/23 10:30 Procalcitonin 8.95 ng/mL (0-0.5) H 08/22/23 10:30 TSH 3.98 uIU/mL (0.27-4.20) 08/22/23 10:30 Urine Color Yellow (Yellow) 08/22/23 11:26 Urine Appearance Cloudy (CLEAR) A 08/22/23 11:26 Urine pH 8 (5-7) H 08/22/23 11:26 Ur Specific [place] 1.010 (1.005-1.030) 08/22/23 11:26 Urine Protein 3+ (Negative) H 08/22/23 11:26 Urine Glucose (UA) Norm (Normal) 08/22/23 11:26 Urine Ketones Negative (Negative) 08/22/23 11:26 Urine Blood 2+ (Negative) H 08/22/23 11:26 Urine Nitrate Negative (Negative) 08/22/23 11:26 Urine Bilirubin Neg (Negative) 08/22/23 11:26 Prot Sulfosalicylic Acd Positive (Negative) 08/22/23 11:26 Urine Urobilinogen Norm mg/dL (Negative) 08/22/23 11:26 Ur Leukocyte Esterase 2+ (Negative) H 08/22/23 11:26 Urine RBC 5-10 /hpf (0-2) H 08/22/23 11:26 Urine WBC Too numerous to cnt /hpf (0-5) H 08/22/23 11:26 Ur Squamous Epith Cells Rare /hpf (0-5) 08/22/23 11:26 Amorphous Sediment Not Reportable 08/22/23 11:26 Urine Bacteria 4+ /hpf (NONE) H 08/22/23 11:26 All radiology interpretation(s) finalized by discharge ABG Data ABG Interpretation 1: Attestation: I personally reviewed and interpreted this ABG as follows: Interpretation: Primary Respiratory Acidosis, Acute, with: Secondary Metabolic Acidosis and Additional Metabolic Alkalosis. Critical Care Time 2 Critical Care Time: Critical Care Time: Yes Total Critical Care Time: 60 Attestation: The patients was emergently evaluated as this patient's presentation and case had a high probability of a clinically significant, sudden, or life threatening deterioration of this patient's initial critical presentation or condition which required my full and direct attention, intervention and personal management. Discharge Plan Discharge Patient Disposition: Admitted As Inpatient Admit Provider: Alberto Nevarez Clinical Impression: Cerebrovascular accident (CVA), Acute UTI, Acute renal failure, Acute dehydration, Left lower lobe pneumonia Sepsis Qualifiers: Severe sepsis acute organ dysfunction type: acute renal failure Acute renal failure type: unspecified Severe sepsis shock status: with septic shock Condition: Stable Coding Level of Care Code ED Co Founder And Director for Carmita Salazar
--- NOTE | 2023-08-22 10:22 | XRR_ITS ---
PROCEDURE INFORMATION: Exam: XR Chest Exam date and time: 08/22/2023 10:28 AM Age: 77 years old Clinical indication: Cough TECHNIQUE: Imaging protocol: Radiologic exam of the chest. Views: 1 view. COMPARISON: CR XR chest 1V [id number] 12/03/2018 9:47 AM FINDINGS: Lungs: Left lower lobe airspace disease compatible with pneumonia is present. No obvious new abnormality in the right lung compared to 12/03/2018. Emphysematous changes are evident in the upper lung zones. Critical finding notification process initiated at 1142 hours CDT. Pleural spaces: No significant pleural fluid. No pneumothorax detected. Heart/Mediastinum: Heart size is stable compared to the prior study. No pulmonary vascular congestion. Bones/joints: No obvious acute abnormality. XR/XR chest 1V portable [id number] IMPRESSION: Left lower lobe pneumonia.
--- NOTE | 2023-08-22 10:24 | CTR_ITS ---
PROCEDURE INFORMATION: Exam: CT Head Without Contrast Exam date and time: 08/22/2023 10:43 AM Age: 77 years old Clinical indication: Weakness, extremity; Additional info: Left hand numbness/weakness TECHNIQUE: Imaging protocol: Computed tomography of the head without contrast. Radiation optimization: All CT scans at this facility use at least one of these dose optimization techniques: automated exposure control; mA and/or kV adjustment per patient size (includes targeted exams where dose is matched to clinical indication); or iterative reconstruction. COMPARISON: CT head wo con* [id number] 08/09/2023 8:39 PM RADIATION DOSE METRICS: Total DLP (mGy-cm): 1195.78 FINDINGS: Brain: Possible tiny cortical infarct right posterosuperior frontal cortex (7:45; 10: 48-49), a subtle change compared to 08/09/2023. No hemorrhage or mass effect identified. The ventricles are stable size and position. Chronic infarct left superior cerebellar hemisphere is again evident. There are no obvious subdural collections. Cerebral ventricles: See Brain finding. Paranasal sinuses: Visualized portions of paranasal sinuses are well aerated. Mastoid air cells: Visualized portions of mastoid sinuses are not opacified. Bones/joints: No obvious fracture or aggressive destructive lesion involving the cranium. Soft tissues: Other than as stated above, no obvious acute abnormality. CT/CT head wo con* [id number] IMPRESSION: Tiny right frontal cortical infarct is suspected in the region of the right precentral gyrus. No significant mass effect or hemorrhage. THIS REPORT CONTAINS FINDINGS THAT MAY BE CRITICAL TO PATIENT CARE. The findings were verbally communicated via telephone conference with Dr. Deep Alejandre at 11:10 AM CDT on 08/22/2023. The findings were acknowledged and understood.
[2023-08-22 10:28] LABS: Glucose Point of Care 80 mg/dL (70-110)
[2023-08-22 10:36] LABS: Basophils # 0.1 10^3/uL (0.0-0.1); Basophils % 0.5 %; Lymphocytes # 0.6 10^3/uL (0.8-4.8); Lymphocytes % 2.7 %; Mean Corpuscular HGB Conc 31.6 g/dL (30-55); Mean Corpuscular Volume 94.9 fl (85-98); Mean Platelet Volume 10.5 fL (7.4-10.4); Monocytes # 1.1 10^3/uL (0.2-0.9); Monocytes % 4.8 %; Neutrophils # 20.68 10^3/uL (1.8-7.7); Neutrophils % 88.4 %; Nucleated Red Blood Cells % 0 %; Platelet Count 258 10^3/cmm (157-399); Red Blood Count 4.53 10^6/uL (3.85-5.65); Red Cell Distribution Width 13.6 % (12.1-15.1); White Blood Count 23.38 10^3/uL (3.29-11.43)
[2023-08-22 10:41] LABS: ABG PCO2 45.2 mmHg (35-45); ABG PH Result 7.27 (7.35-7.45); Arterial Blood Gas Hematocrit 41.9 % (37-47); Base Excess ABG -6.2 mmol/L (-2.0-2.0); Blood Gas Allen Test Pos; Blood Gas LPM 4.5 %; Blood Gas Operator Identificat glc; Blood Gas Sample Site Radial, right; Blood Gas Sample Type Arterial; HCO3 ABG 20.7 mmol/L (22-26); Oxygen Device NC; PO2 ABG 81.4 mmHg (80.0-100.0); PO2 FiO2 Ratio Arterial Blood 0
--- NOTE | 2023-08-22 10:44 | CTR_ITS ---
PROCEDURE INFORMATION: Exam: CTA Head With Contrast, Arteriography Exam date and time: 08/22/2023 10:48 AM Age: 77 years old Clinical indication: Numbness and weakness; Additional info: Left arm weakness/numbness TECHNIQUE: Imaging protocol: Computed tomographic angiography of the head with contrast. Exam focused on the arteries. 3D rendering (Not supervised by radiologist): MIP and/or 3D reconstructed images were created by the technologist. Radiation optimization: All CT scans at this facility use at least one of these dose optimization techniques: automated exposure control; mA and/or kV adjustment per patient size (includes targeted exams where dose is matched to clinical indication); or iterative reconstruction. Contrast material: OMNI 350; Contrast volume: 100 ml; Contrast route: INTRAVENOUS (IV); COMPARISON: CT head wo con* [id number] 08/22/2023 10:43 AM RADIATION DOSE METRICS: Total DLP (mGy-cm): 478.98 FINDINGS: Internal carotid: Atherosclerotic calcification of bilateral carotid siphons without significant stenosis. Anterior cerebral: Proximal anterior cerebral arteries bilaterally are patent without evidence of flow-limiting stenosis. A small anterior communicating artery is present. Middle cerebral: Bilateral proximal middle cerebral arteries are patent without flow-limiting stenosis or occlusion. There is grossly symmetric appearance of branch vessels within the sylvian fissures. Posterior cerebral: Bilateral proximal posterior cerebral arteries are patent without flow-limiting stenosis or occlusion. There is a patent left posterior communicating artery.. Vertebrobasilar: Basilar artery is patent without flow-limiting stenosis. Intracranial segments of both vertebral arteries are patent without flow-limiting stenosis. Venous sinuses: Major dural venous sinuses are patent without evidence of thrombus. PROCEDURE INFORMATION: Exam: CTA Neck With Contrast Exam date and time: 08/22/2023 10:48 AM Age: 77 years old Clinical indication: Numbness and weakness; Additional info: Left arm weakness/numbness TECHNIQUE: Imaging protocol: Computed tomographic angiography of the neck with contrast. Exam focused on the cervical segments of the vasculature. 3D rendering (Not supervised by radiologist): MIP and/or 3D reconstructed images were created by the technologist. Radiation optimization: All CT scans at this facility use at least one of these dose optimization techniques: automated exposure control; mA and/or kV adjustment per patient size (includes targeted exams where dose is matched to clinical indication); or iterative reconstruction. Contrast material: OMNI 350; Contrast volume: 100 ml; Contrast route: INTRAVENOUS (IV); COMPARISON: CT head wo con* [id number] 08/22/2023 10:43 AM RADIATION DOSE METRICS: Total DLP (mGy-cm): 478.98 FINDINGS: Aortic arch: Proximal right innominate artery is poorly visualized due to artifact generated by extensive atherosclerotic calcification involving this vessel as well as artifact from contrast within the adjacent innominate vein. There is at least moderate stenosis at the origin of the right innominate artery. No significant stenosis involving origins of the left common carotid artery or left subclavian artery. Right carotid: No significant stenosis of the right common or proximal external carotid arteries in the neck. There is focal calcified plaque producing less than 40% stenosis of the proximal right ICA. No hemodynamically significant stenosis of the right ICA is identified in the neck. Left carotid: Calcified plaque at the left carotid bifurcation may be associated with moderate stenosis at the origin of the right ECA. There is no significant stenosis of the left common or internal carotid arteries in the neck. Left vertebral: Left vertebral artery is patent without flow-limiting stenosis or dissection. The left vertebral artery is slightly dominant. Right vertebral: Right vertebral artery is patent without evidence of flow-limiting stenosis or dissection. Right subclavian calcification near the origin of the right vertebral artery does not appear to produce significant stenosis. A mass at the base of the neck posterior to the right common carotid artery (series 5, image 94) currently measures approximately 15 x 11 x 16 mm compared to 9 x 7 x 9 mm in 2011. Chronic multilevel cervical degenerative disc disease and facet arthropathy are present. There are variable degrees of chronic cervical canal and foraminal stenoses. Mild emphysema in the lung apices. Scattered parenchymal opacities likely postinflammatory. CT/CT angio headneck* [id number] IMPRESSION: CTA head demonstrates no intracranial large vessel occlusion or flow-limiting stenosis. IMPRESSION: 1. CTA neck shows bilateral carotid atherosclerosis without evidence of hemodynamically significant stenosis. 2. Both vertebral arteries are patent without evidence of flow-limiting stenosis. 3. Mass at the base of the neck on the right, posterior to the right common carotid artery, has increased in size since 2011, apparently at a slow growth rate given the long interval. Etiology is undetermined. It could represent parathyroid tumor, enlarged lymph node, neurogenic tumor, etc.. 4. Chronic cervical spondylosis. REFERENCES: NASCET CRITERIA. The degree of stenosis in the cervical segment of the internal carotid artery is based on NASCET criteria. Normal is no stenosis. Mild is less than 50% stenosis. Moderate is 50-69% stenosis. Severe is 70% to 99% stenosis. Total occlusion is no detectable patent lumen.
[2023-08-22 10:50] LABS: INR 1.12 (0.8-1.2)
[2023-08-22 10:57] LABS: Lactic Sepsis W/Reflex 1.4 mmol/L (0.5-2.2)
[2023-08-22 11:03] LABS: Alanine Aminotransferase 12 U/L (0-33); Albumin Level 3.4 g/dL (3.5-5.2); Alkaline Phosphatase 161 U/L (35-105); Anion Gap 22.5 (5-19); Aspartate Amino Transferase 30 U/L (0-32); Blood Urea Nitrogen 57 mg/dL (8-23); Calcium 7.5 mg/dL (8.5-10.5); Carbon Dioxide 22 mmol/L (22-29); Chloride 97 mmol/L (98-107); Globulin 4.1 g/dL (1.3-4.6); Glucose 84 mg/dL (65-115); NT Pro B Type Natriuretic Pept 3266 pg/mL (0-450); Osmolality Calculated 297 mOsm/kg (285-295); Potassium 5.5 mmol/L (3.5-5.1); Sodium 136 mmol/L (136-145); Total Protein 7.5 g/dL (6.6-8.7)
[2023-08-22] MEDS: iohexol 350 mg/mL 500 mL Btl (per mL) IV (11:06)
[2023-08-22 11:09] LABS: Creatinine Clr Calc Pharmacy 12.9616
--- NOTE | 2023-08-22 12:15 | CTR_ITS ---
PROCEDURE INFORMATION: Exam: CT Abdomen And Pelvis Without Contrast Exam date and time: 08/22/2023 12:31 PM Age: 77 years old Clinical indication: Acute renal failure. TECHNIQUE: Imaging protocol: Computed tomography of the abdomen and pelvis without contrast. Radiation optimization: All CT scans at this facility use at least one of these dose optimization techniques: automated exposure control; mA and/or kV adjustment per patient size (includes targeted exams where dose is matched to clinical indication); or iterative reconstruction. COMPARISON: CT abdomen pelvis w con* [id number] 12/03/2018 5:40 AM RADIATION DOSE METRICS: Total DLP (mGy-cm): 1250.89 FINDINGS: Extensive left lower lobe consolidation and small focus of right lower lobe consolidation compatible with pneumonia. Small foci of pneumonia or atelectasis involve the right middle lobe and lingula. Assessment of upper abdominal organs is suboptimal on this unenhanced study, particularly with beam hardening artifact related to patient's arms. Given these limitations, no definite acute abnormality of the unenhanced liver, spleen, pancreas, or adrenal glands is seen. The unenhanced kidneys demonstrate no hydronephrosis or obvious calculi. There is a very distended gallbladder without gallbladder wall thickening or biliary duct dilation. Severe abdominal aortic atherosclerotic calcifications without aneurysmal dilation. No evidence of bowel obstruction. There is a large periampullary duodenal diverticulum. Severe sigmoid diverticulosis without evidence of acute diverticulitis. There is abundant stool in the rectal vault. Mild diastasis of rectus sheath at level of umbilicus. Patient apparently status post hysterectomy. Images through the lower pelvis are degraded by artifact from right hip prosthesis. Urinary bladder is empty which, in combination with the severe artifact from right hip prosthesis, prevents assessment of bladder wall. Bones are diffusely osteopenic. No definite acute osseous abnormality identified. Chronic appearing deformity at the pubic symphysis. CT/CT abdomen pelvis wo con [id number] IMPRESSION: 1. Pneumonia most severely affecting left lower lobe. 2. Distended gallbladder, nonspecific. No gallbladder wall thickening or biliary duct dilation is seen. 3. No other evidence of acute abnormality. Multiple incidental and/or nonacute findings as reported above.
[2023-08-22 12:50] LABS: Bilirubin Urine Neg (Negative); Blood Urine 2+ (Negative); Glucose Urine UA Norm (Normal); Ketones Urine Negative (Negative); Nitrate Urine Negative (Negative); Protein Urine 3+ (Negative); Urine Appearance Cloudy (CLEAR); Urine Color Yellow (Yellow); pH Urine 8 (5-7)
[2023-08-22 12:51] LABS: Add Urine Culture? Yes; Add Urine Microscopic? YES; Bacteria Urine 4+ /hpf; Leukocyte Esterase Urine 2+ (Negative); Squamous Epithelial Cell Urine RARE /hpf (0-5); Sulfosalicylic Acid Urine Positive (Negative); Urobilinogen Urine Norm (Negative); WBC Urine TOO NUMEROUS TO CNT /hpf (0-5)
[2023-08-22] MEDS: norepinephrine 4 MG/250 ML BAG 15 MG IV ×2 (14:03→17:02)
--- NOTE | 2023-08-22 14:05 | XRR_ITS ---
PROCEDURE INFORMATION: Exam: XR Chest Exam date and time: 08/22/2023 9:08 PM Age: 77 years old Clinical indication: Device placement; Other: Central line; Additional info: Central line placement TECHNIQUE: Imaging protocol: Radiologic exam of the chest. Views: 1 view. COMPARISON: CT chest wo julián [id number] 08/22/2023 4:20 PM FINDINGS: Tubes, catheters and devices: Right internal jugular venous catheter terminating in the expected location of the cavoatrial junction. Lungs: Mildly worsening e moderate central vascular prominence. Moderate interstitial opacities and jcvk-mveopkx-dlhh-right basilar opacities are mildly worsened. Pleural spaces: Small effusions may be present. There is no pneumothorax. Heart/Mediastinum: Unremarkable. No cardiomegaly. Bones/joints: Unremarkable. XR/XR chest 1V portable [id number] IMPRESSION: 1. Right internal jugular venous catheter. No pneumothorax. 2. Mild worsening central vascular congestion and bibasilar opacities may represent edema or worsening atelectasis/consolidation.
--- NOTE | 2023-08-22 14:05 | XRR_ITS ---
PROCEDURE INFORMATION: Exam: XR Chest Exam date and time: 08/22/2023 1:55 PM Age: 77 years old Clinical indication: Device placement; Other: Central line placement TECHNIQUE: Imaging protocol: Radiologic exam of the chest. Views: 1 view. COMPARISON: CR (CHEST, ) 08/22/2023 10:28 AM FINDINGS: Tubes, catheters and devices: Right IJ approach central venous catheter terminates over the SVC. Lungs: Patchy airspace opacities in the uwie-safbghf-ismo-right lung bases. Pleural spaces: No large pleural effusion. No distinct pneumothorax. Heart/Mediastinum: Cardiomediastinal silhouette is midline and normal in size. Vasculature: Calcific disease of the aorta. Bones/joints: Osseous structures are unchanged. XR/XR chest 1V portable [id number] IMPRESSION: Patchy airspace opacities in the hdsi-kaaxeuh-cdpv-right lung bases, likely representing infiltrate.
--- NOTE | 2023-08-22 14:19 | USCV_ITS ---
Mildred Veliz Age: 77 Gender: F : 1945 Exam Date: 08/22/2023 16:50 Ordering Phys: Alberto Nevarez MD Technologist: Heri Ely Exam Location: [facility] [place] Indication: stroke BP: 117 / 63 HR: 89 Rhythm: Sinus Technical Quality: Adequate MEASUREMENTS (Male / Female) Normal Values 2D ECHO LVOT Diameter 2.2 cm LV Ejection Fraction MOD 2C 60.8 % LV Ejection Fraction 2C AL 59.8 % LA Diameter 4.2 cm RA Systolic Volume 4C AL 46.2 ml RA Systolic Volume 4C MOD 46.3 ml Aorta at Sinotubular Diameter 2.5 cm IVC Diameter 2.4 cm M-MODE LA Ao Ratio MM 1.5 AV Cusp Separation MM 2.0 cm DOPPLER AV Peak Velocity 117.0 cm/s LVOT Peak Velocity 74.0 cm/s AV Area Cont Eq vti 2.8 cm squared AV Area Cont Eq pk 2.5 cm squared MV Peak Velocity 100.0 cm/s MV Area PHT 10.5 cm squared Mitral E to A Ratio 1.0 TR Peak Velocity 343.0 cm/s TR Peak Gradient 47.1 mmHg TR Mean Velocity 255.0 cm/s TR Mean Gradient 28.2 mmHg TR Velocity Time Integral 107.0 cm PV Peak Velocity 73.0 cm/s RV Ejection Time 0.3 s FINDINGS Left Ventricle Left ventricle is normal in size. LV systolic function is normal with EF of 55 to 60%. Because of limited visualization, cannot accurately assess regional wall motion abnormalities. Right Ventricle Normal in size and function Right Atrium Normal in size. Interatrial septum is aneurysmal Left Atrium Dilated Mitral Valve Mild mitral annular calcification. Mild mitral regurgitation. Aortic Valve Structurally normal aortic valve. No significant stenosis or regurgitation. Tricuspid Valve Mild tricuspid regurgitation. Insufficient TR jet to calculate RVSP Pulmonic Valve Not well visualized Pericardium Normal Aorta Normal in size IVC Dilated CONCLUSIONS Fish Ohara MD (Electronically Signed) Final Date: 23 August 2023 15:08 S
--- NOTE | 2023-08-22 14:19 | CTR_ITS ---
PROCEDURE INFORMATION: Exam: CT Chest Without Contrast; Diagnostic Exam date and time: 08/22/2023 4:20 PM Age: 77 years old Clinical indication: Shortness of breath; Additional info: Copd/pna TECHNIQUE: Imaging protocol: Diagnostic computed tomography of the chest without contrast. Radiation optimization: All CT scans at this facility use at least one of these dose optimization techniques: automated exposure control; mA and/or kV adjustment per patient size (includes targeted exams where dose is matched to clinical indication); or iterative reconstruction. COMPARISON: CR XR chest 1V portable [id number] 08/22/2023 1:55 PM RADIATION DOSE METRICS: Total DLP (mGy-cm): 708.71 FINDINGS: Tubes, catheters and devices: A right-sided central line has its tip in good position within the SVC. Lungs: There is a large area of dense consolidation along with cavitation involving the left lower lobe. There is obstruction of the left lower lobe bronchus due to what appears to be secretions. Smaller areas of consolidation involve the right middle lobe, lingula in the right lower lobe.There is diffuse centrilobular emphysematous change involving the upper lobes bilaterally. No lung mass or infiltrate. Pleural spaces: Unremarkable. No pneumothorax. No pleural effusion. Heart: Unremarkable. No cardiomegaly. No pericardial effusion. Lymph nodes: Unremarkable. No enlarged lymph nodes. Vasculature: Unremarkable. No aortic aneurysm. Bones/joints: Unremarkable. No acute fracture. Soft tissues: Unremarkable. CT/CT chest wo con [id number] IMPRESSION: 1. Extensive bilateral pneumonia with mucous plugging 2. Emphysematous changes COMMENTS: The presence of pulmonary emphysema on CT is an independent risk factor for lung cancer. In the absence of a history or active diagnosis of lung cancer, it is recommended that this patient with emphysema be evaluated for enrollment in a low dose CT lung cancer screening program.
[2023-08-22] MEDS: SODIUM CHLORIDE 0.9% 3919.05000000000018 ML IV (14:25)
[2023-08-22] MEDS: sodium chloride 0.9% 1,000 ML 999 ML IV ×3 (14:25→19:23)
[2023-08-22 14:27] LABS: Procalcitonin 8.95 ng/mL (0-0.5); Thyroid Stimulating Hormone 3.98 uIU/mL (0.27-4.20)
[2023-08-22] MEDS: cefTRIAXone 2,000 MG in sodium chloride 0.9% (plus) 50 ML 100 MG IV (14:29)
--- NOTE | 2023-08-22 14:30 | PC.NURSE ---
PATIENT STARTED ON LEVOPHED AT DR TRAYLOR VERBAL ORDER OF 4MCG/MIN. BP STILL INSUFFICIENT AND DR TRAYLOR ORDERED TO UP THE DOSE TO 8MCG/MIN. AFTER 15 MINS BP STILL INSUFFICIENT AND DR TRAYLOR ORDERED TO UP DOSE TO 12MCG/MIN.
--- NOTE | 2023-08-22 14:34 | PC.NURSE ---
AT 1433 DR TRAYLOR VERBALLY ORDERED TO INCREASE LEVOPHED DOSE TO 16MCG/MIN. BP IS 117/71 AT THIS TIME.
[2023-08-22 14:38] LABS: Magnesium 2.5 mg/dL (1.7-2.3)
--- NOTE | 2023-08-22 14:54 | P.HP_ITS ---
Providers/Chief Complaint 2 Admitting Physician: Alberto Nevarez MD Primary Care Provider: Shruthi Daniel MD Chief Complaint: sob, left arm weakness History of Present Illness Mildred Veliz is a 77 year old female with past medical history of hypertension, diastolic heart failure, stroke in 2016, DVT, morbid obesity, COPD who has been having occasional episodes of confusion for last 1 month for which she was recently diagnosed with a UTI and was prescribed nitrofurantoin by her PCP which was not yet started presents to the ER today because of more confusion and weakness today morning. In the ER she had a CT head which showed acute right frontal cortical stroke. Hospital service was consulted for admission. At that time it was noted that patient's blood pressures were running in 70s systolics with a creatinine of 5.2. I had asked for a CT abdomen pelvis along with a sepsis bolus and possibly needing Levophed drip. Neurology consult was also requested. After 2 L of fluid bolus patient showed symptoms of fluid overload hence fluid bolus was aborted and she was started on a Levophed drip through the right IJ. I am told for neurology Dr. Cheema was consulted from [facility] who recommended patient to have dual antiplatelet therapy and admission for stroke workup. They deemed patient to be outside the window for TNKase When seen in the ICU with family at bedside she is currently on Levophed of 16, received 2-1/2 L of fluid bolus, heart rate of 90 bpm, awake and alert, saturating 98% on 5 L with Levophed running at 17. Review of Systems 2 General: Reports: 10 or more systems reviewed and unremarkable except in HPI and below Const: Denies: fever(s), chills, body aches, change in appetite, change in weight, malaise, night sweats, diaphoresis, change in sleep pattern, daytime sleepiness or snoring Eyes: Denies: change in vision, blurry vision, photophobia, eye discomfort or eye discharge ENMT: Denies: throat pain, enlarged tonsils, hoarseness, mouth pain, oral sores, dry mouth, tinnitus, nasal congestion or post nasal drip Card: Denies: chest pain, palpitations, irregular heart rhythm, edema, swelling of feet/ankles, lightheadedness, syncope, pre-syncope, dyspnea on exertion, orthopnea, leg pain with exertion or acrocyanosis Resp: Denies: dyspnea, productive cough, non-productive cough, wheezing, stridor, pain on inspiration, change in phlegm color, hemoptysis or chest congestion GI: Denies: abdominal pain, nausea, vomiting, hematemesis, coffee ground emesis, dysphagia, heartburn, diarrhea, constipation, bloating, GI cramping, change in bowel habits, pain on defecation, hematochezia or melena : Denies: flank pain, dysuria, urinary frequency, urinary urgency, urinary hesitancy, nocturia or hematuria Musc: Denies: neck pain, back pain, extremity pain, joint pain, joint swelling, joint redness, joint stiffness or limited range of motion Neuro: Denies: headache(s), numbness in extremities, weakness in extremities, sensory changes, lack of coordination, difficulty walking, frequent falls, dizziness, vertigo, confusion, Slurred speech present, difficulty communicating thoughts or seizure-like activity Psych: Denies: anxiety, depression, mood swings, panic attacks, hopelessness or irritability Endo: Denies: polyuria, polydipsia, tired all the time, cold intolerance, excessive sweating, flushing or heat intolerance Francisco/Lymph: Denies: easy bruising or easy bleeding All/Imm: Denies: tongue swelling, facial swelling or acute wheezing Medications/Allergies Home Medications Medication Instructions Recorded Confirmed Last Taken Type albuterol sulfate 90 mcg/actuation 1 inh inhalation QID PRN Shortness 05/22/20 08/22/23 Unknown History aerosol inhaler (ProAir HFA) Of Breath Or Wheezing carvedilol 6.25 mg tablet 6.25 mg PO BID 05/22/20 08/22/23 08/21/23 History celecoxib 100 mg capsule 100 mg PO BID 05/22/20 08/22/23 08/21/23 History citalopram 10 mg tablet 10 mg PO DAILY 08/22/23 08/22/23 08/21/23 History donepezil 5 mg tablet 5 mg PO BEDTIME 08/22/23 08/22/23 08/21/23 History furosemide 20 mg tablet 20 mg PO DAILY 08/22/23 08/22/23 08/21/23 History nitrofurantoin 100 mg PO BID 08/22/23 08/22/23 08/21/23 History monohydrate/macrocrystals 100 mg capsule potassium chloride 8 mEq 8 meq PO DAILY 08/22/23 08/22/23 08/21/23 History tablet,extended release tramadol 50 mg tablet 50 mg PO DAILY PRN Pain 08/22/23 08/22/23 Unknown History venlafaxine 150 mg 150 mg PO DAILY 08/22/23 08/22/23 08/21/23 History capsule,extended release 24 hr Allergies Allergy/AdvReac Type Severity Reaction Status Date / Time No Known Allergies Allergy Verified 08/22/23 11:03 PFSH Acute 2 PFSH: Medical History (Updated 08/22/23 @ 17:51 by Alberto Nevarez MD) Arthritis Morbid obesity with body mass index of 45.0-49.9 in adult Cerebrovascular accident (CVA) History of palpitations DVT of leg (deep venous thrombosis) Surgical History (Updated 08/22/23 @ 17:41 by Alberto Nevarez MD) Hx of breast biopsy Social History Smoking and tobacco/nicotine status: former use of tobacco/nicotine Vitals/I&O/Wt Last Vital Signs Pulse 94 08/22/23 13:28 Resp 18 08/22/23 10:09 BP 66/51 08/22/23 13:28 Pulse Ox 97 08/22/23 13:28 O2 Del Method Nasal Cannula 08/22/23 13:28 O2 Flow Rate 5 08/22/23 13:28 08/21/23 08/22/23 08/22/23 22:59 06:59 14:59 Intake Total 50 / 50 Balance 50 / 50 Weight last 48 hrs Weight 130.635 kg Physical Exam 2 Narrative: General: No acute distress, AO x3, sick appearing, on nasal cannula, cool peripheries, mottling of lower limbs HEENT: PERRLA, pupils bilaterally equal and reactive Chest: Bilateral bronchial breath sounds with coarse crackles and rhonchi present in left lower zone CVS: S1-S2 regular, no murmurs, no tachycardia, no gallops, no rubs Abdomen: Soft, nontender, no organomegaly, bowel sounds present Neuro: No focal deficits, no facial deformity, AO x3, power 5/5 in all limbs Data 08/22/23 10:30 08/22/23 10:30 Micro: Microbiology 08/22/23 11:11 Blood Culture - Preliminary Blood SPECIMEN COLLECTED 08/22/23 11:05 Blood Culture - Preliminary Blood SPECIMEN COLLECTED A&P Assessment and plan (1) Septic shock: SIRS: Tachycardic, leukocytosis, hypotension not responding to fluid Source: Pneumonia/UTI End organ damage: Acute renal failure Lactic acid within normal limits Patient is developing some fluid overload but will finish fluid bolus with 30 mL/kg body weight. Blood culture, urine culture, MRSA swab, procalcitonin, urine Legionella, bacterial antigen, sputum culture. Empirically start with IV vancomycin and Zosyn. Check echocardiogram. Wean Levophed keeping mean artery pressure over 65. If needed will add vasopressin. Monitor CVP. Patient would not be able to tolerate Cheetah examination. (2) Acute respiratory failure with hypoxia: In setting of pneumonia. High risk of aspiration pneumonia. Patient has a history of COPD as well. Pulmicort twice daily, DuoNebs every 6 hour. Start on Solu-Medrol 60 mg every 4 hours. After 125 mg one-time dose stat. Will also have a septic shock. Ox supplementation keeping saturation over 90%. If needed will use BiPAP. (3) Acute renal failure: Most likely in setting of septic shock. CT abdomen pelvis ruled out obstructive nephropathy. Whitten catheterization. Monitor BMP. Repeat BMP in evening. Repeat ABG. Monitor electrolytes. Monitor for acidosis. If needed will give bicarb accordingly. Medical reconciliation for nephrotoxic drugs. Check urine lites, urine creatinine, urine eosinophils. (4) Cerebrovascular accident (CVA): Technically would want permissible hypertension but for now patient is hypotensive. Being out of the window for TNKase as per neurologist Doe. Echocardiogram as above. Speech therapy, physical therapy, Occupational Therapy. Advance diet as per speech evaluation. For now we will do bedside speech evaluation. Check A1c, lipid panel. Aspirin 81 mg daily, atorvastatin 40 mg daily for now. (5) Hyperkalemia: Repeat BMP in few hours. D50 potential for insulin, calcium gluconate. Most likely in setting of ALBINO. 1 dose of sodium bicarbonate (6) Left lower lobe pneumonia: (7) COPD (chronic obstructive pulmonary disease): Qualifiers: COPD type: unspecified COPD Qualified Code(s): J44.9 - Chronic obstructive pulmonary disease, unspecified (8) Acute UTI: Follow-up urine culture. Next antibiotics above will cover for UTI as well. Plan CODE STATUS: Discussed in detail with the patient and multiple family members at bedside. Patient is okay with heroic measures, life support if needed. Full code. Clear liquid diet Protonix will be sufficient for PUD prophylaxis Heparin 5000 every 12 hourly for DVT prophylaxis. Goals of care discussion done in detail with patient and family Giurgius at bedside. They were made aware that she is critically sick right now with septic shock requiring multiple pressors with renal failure which puts her at a higher risk of needing ventilator support. Attestations 2 Medical Necessity Statement*: Admission for more than 2 midnights for management of septic shock in setting of pneumonia, hypoxic respiratory failure, acute renal failure in a patient who was also found to have acute stroke Critical Care Time: The high probability of a clinically significant, sudden or life threatening deterioration of the patient's [cardiac, renal, neurological, ID] system(s) required my full and direct attention, intervention and personal management. The critical care time is as shown. This time is in addition to time spent performing any reported procedures but includes the following: [x] Data and vital sign review and interpretation [x] Patient assessment, examination and intervention [x] Documentation [x] Medication orders and management Critical Care Time (min): 90 Coding Level of Care Code Critical Care >/= 30 minutes Critical care time (in minutes): 90 The high probability of a clinically significant, sudden or life threatening deterioration, as referenced in this documentation, required my full and direct attention, intervention and personal management. The critical care time shown is in addition to time spent performing any reported separately billable procedures and includes the following: [x] Data and vital sign review and interpretation [x ] Patient assessment, examination and intervention [x] Medication orders and management [x] Patient/Family updates as able [x] Care Coordination and Documentation. Other Coding Information This patient has a high probability of clinically significant, sudden or life threatening deterioration of the patient's (neurological/pulmonary/cardiac/renal/ID/endocrine) systems required my full, direct attention, the highest level of physician preparedness for urgent intervention and personal management. I managed/supervised life or organ supporting interventions that required frequent physician assessment. I devoted my full attention in the ICU to the direct care of this patient for the period of time indicated above. Time I spent with family or surrogate(s) is included only if the patient was incapable of providing necessary information or participating in decision making. This time includes the following services provided: Telemetry review Hemodynamic interpretation, assessment and management Review and interpretation of CXR Review and interpretation of lab values Review and interpretation of microbiologic data and culture results Review of medications and administration Review and interpretation of Nutrition requirements and management Discussion of management with other consultants and services Clinical update to family members Diagnoses Septic shock A41.9; R65.21 Acute respiratory failure with hypoxia J96.01 Acute renal failure N17.9 Cerebrovascular accident (CVA) I63.9 Hyperkalemia E87.5 Left lower lobe pneumonia J18.9 Chronic obstructive pulmonary disease, unspecified COPD type J44.9 COPD type: unspecified COPD Acute UTI N39.0
[2023-08-22] MEDS: insulin regular-human 10 UNIT in SYRINGE 1 EACH 1000 UNIT IVP (15:17)
[2023-08-22] MEDS: dextrose 10% 250 ML 1000 ML IV ×2 (15:17→18:32)
[2023-08-22 15:21] LABS: Vitamin B12 1036 pg/mL (232-1245)
[2023-08-22] MEDS: calcium gluconate 0.1 gm/mL 10% SDV 10mL 1 GM IVP ×4 (15:34→18:26)
[2023-08-22] MEDS: heparin 5,000 unit/mL INJ 1 mL 5000 UNIT SUBCUT (15:35)
[2023-08-22] MEDS: pantoprazole 40 mg SDV IVP (15:36)
[2023-08-22] MEDS: sodium chloride 0.9% 1,000 ML 75 ML IV (15:38)
[2023-08-22] MEDS: morphine 4 mg/mL SDV 1 mL 2 MG IVP ×2 (15:47→21:30)
[2023-08-22 16:05] LABS: Lactic Sepsis W/Reflex 0.8 mmol/L (0.5-2.2)
[2023-08-22 16:11] LABS: Estmated Average Glucose 100; Hemoglobin A1C 5.1 % (4.0-6.0)
[2023-08-22 16:14] LABS: Iron 12 ug/dL (37-145); Percent Saturation 7.8 % (20-50); Thyroid Stimulating Hormone 3.03 uIU/mL (0.27-4.20); Total Iron Binding Capacity 152 mcg/dl; Unsaturated Iron Binding 140 ug/dL (112-347)
[2023-08-22] MEDS: vancomycin 1,750 MG/350 ML PIGGYBACK 233.330000000000013 MG IV (16:35)
[2023-08-22] MEDS: piperacillin-tazobactam 3.375 GM in sodium chloride 0.9% (plus) 50 ML IV (16:56)
[2023-08-22 17:34] LABS: Basophils # 0.1 10^3/uL (0.0-0.1); Basophils % 0.5 %; Eosinophils # 0.1 10^3/uL (0.0-0.8); Eosinophils % 0.6 %; Hematocrit 37.8 % (36-47); Lymphocytes # 0.7 10^3/uL (0.8-4.8); Lymphocytes % 2.8 %; Mean Corpuscular HGB Conc 31.5 g/dL (30-55); Mean Corpuscular Hemoglobin 30.6 pg (27-33); Mean Corpuscular Volume 97.2 fl (85-98); Mean Platelet Volume 10.5 fL (7.4-10.4); Monocytes # 1.2 10^3/uL (0.2-0.9); Monocytes % 4.8 %; Neutrophils # 21.63 10^3/uL (1.8-7.7); Neutrophils % 88.6 %; Nucleated Red Blood Cells % 0 %; Platelet Count 237 10^3/cmm (157-399); Red Blood Count 3.89 10^6/uL (3.85-5.65); Red Cell Distribution Width 13.8 % (12.1-15.1); White Blood Count 24.41 10^3/uL (3.29-11.43)
[2023-08-22 17:51] LABS: Anion Gap 20.2 (5-19); Blood Urea Nitrogen 57 mg/dL (8-23); Calcium 6.9 mg/dL (8.5-10.5); Carbon Dioxide 19 mmol/L (22-29); Chloride 99 mmol/L (98-107); Glucose 93 mg/dL (65-115); Osmolality Calculated 292 mOsm/kg (285-295); Potassium 5.2 mmol/L (3.5-5.1); Sodium 133 mmol/L (136-145)
[2023-08-22 17:54] LABS: Creatinine Clr Calc Pharmacy 13.4801
[2023-08-22] MEDS: sodium bicarbonate 8.4% 1 mEq/mL 50mL Syr 150 MEQ IVP (18:15)
[2023-08-22 18:26] LABS: Glucose Point of Care 90 mg/dL (70-110)
[2023-08-22] MEDS: methylPREDNISolone sod succ 125 mg/2 mL INJ IVP (18:26)
[2023-08-22] MEDS: sodium chloride 0.9% 500 ML 999 ML IV (18:26)
[2023-08-22] MEDS: sodium chloride 0.9% 500 ML IV (18:32)
[2023-08-22] MEDS: insulin regular-human 10 UNIT in SYRINGE 1 EACH 110 UNIT IVP (18:32)
[2023-08-22] MEDS: aspirin 325 mg EC Tablet PO (18:37)
[2023-08-22] MEDS: ipratropium-albuterol 3 mL Neb INHALATION (19:54)
[2023-08-22] MEDS: budesonide 0.5 mg/2 mL Neb INHALATION (19:54)
--- NOTE | 2023-08-22 21:00 | PC.NURSE ---
1899: Patient was receiving NS at 75mL/hr, at bedside Dr. Nevarez gave verbal orders to give a 1L bolus of NS, continue NS at 75mL/hr after completion of bolus, then recheck the CVP and call him with the results. 2044: Patient's CVP was 12, Dr. Nevarez was informed and gave instructions to recheck CVP every 6 hours and if it reaches 18 or higher to contact the hospitilist assistant production editor.
[2023-08-22] MEDS: norepinephrine 4 MG/250 ML BAG 67.5 MG IV (21:30)
[2023-08-22] MEDS: vasopressin 40 UNIT/100 ML PREMIX 0.0800000000000000017 UNIT IV (21:46)
--- NOTE | 2023-08-22 22:10 | PC.NURSE ---
Central Line Placement Upon going into patient's room at about 2117, patient noted to be sitting up in bed calm and confused, able to state her name and location but unable to state time of year. Central line dressing observed to be sitting in patient's lap while the catheter was hanging off the side of the bed. Levophed and maintenance fluids initiated in peripheral IV. When inquiring to patient about what occurred, patient stated, I don't know. I didn't need any of this anymore and I took it out. 1:[address] Spivey notified of central line removal, sitter in room, as well as levophed requirement at 18 mcg/min; order received for 1 mg haldol IM PRN Q4H for agitation. Second peripheral IV placed in the left hand. Dr. Spivey arrived on unit to place new central line at approximately 2129. Order received to administer 2 mg morphine IVP prior to placement. Central line placed and chest xray obtained. Daughter, Valerie, educated on new central line and sitter; no questions verbalized. See MAR for details.
--- NOTE | 2023-08-22 22:27 | P.PNCC_ITS ---
Critical Care Event Note The high probability of a clinically significant, sudden or life threatening deterioration of the patient's [] system(s) required my full and direct attention, intervention and personal management. The critical care time is as shown. This time is in addition to time spent performing any reported procedures but includes the following: [x] Data and vital sign review and interpretation [x] Patient assessment, examination and intervention [x] Documentation [x] Medication orders and management Critical Care Time Code activated: No Critical Care Time (min): 25 Additional information about critical care time: Patient was seen this evening, currently on 18 of Levophed, maps around 65, she is alert and oriented to person, to place, not to time, she is on 4 L nasal tony lety, in septic shock, patient became agitated and removed her central line, currently Levophed going at 18, maps around 65, she has 2 peripheral IVs patient apologizes that she removed her central line, she did not know what it was, discussed risk and benefits of replacing central line, she voiced understanding, all questions answered, agreed to proceed Coding Level of Care Code Acute Code for Carmita Salazar
--- NOTE | 2023-08-22 22:31 | P.ANES_ITS ---
Anesthesia Procedures Procedure/Date: 08/22/23 Central Venous Insert: Central Venous Line: Right internal jugular Time Out Performed: Yes Consent: requested by attending/covering physician, from patient, risks and benefits reviewed, patient agrees to proceed and emergency procedure Central Line: New Anesthesia monitors: pulse oximetry, EKG, BP cuff and oxygen Vein cannulated: right internal jugular Ultrasound used: to identify patency to vessel and to visualize needle entry to vein Post procedure: Obtain Chest X-Ray Additional Comments: Ultrasound visual entry of needle into right internal jugular vein, with expr ession of dark red blood, nonpulsatile, guidewire was threaded over this, ultrasound confirmed placement of guidewire into right internal jugular vein, minimal bleeding, chest x-ray confirms placement
[2023-08-22] MEDS: atorvastatin 40 mg Tablet PO (22:41)
--- NOTE | 2023-08-22 23:28 | PC.NURSE ---
Addendum entered by Hillary Boone RN 08/22/23 23:30: At 1900. Original Note: MAR Upon initial assessment of patient, levophed drip administering at 18 mcg/min while MAR displays 4 mcg/min. MAR updated to reflect medication administration.
[2023-08-23] VITALS (154 sets, daily range): BP systolic 81–140; BP diastolic 49–84; PULSE 80–167; RESP 15–40; TEMP 36.2–37.5; O2SAT 87–99; BMI 49.1
[2023-08-23] MEDS: methylPREDNISolone sod succ 125 mg/2 mL INJ 60 MG IVP ×5 (00:29→23:04)
[2023-08-23] MEDS: sodium chloride 0.9% 500 ML IV (00:33)
[2023-08-23 00:41] LABS: Potassium 5.9 mmol/L (3.5-5.1)
[2023-08-23] MEDS: norepinephrine 4 MG/250 ML BAG 67.5 MG IV (00:59)
[2023-08-23] MEDS: FUROsemide 10 mg/mL SDV 2mL 20 MG IVP (01:43)
[2023-08-23] MEDS: ipratropium-albuterol 3 mL Neb INHALATION ×4 (02:28→19:57)
[2023-08-23 03:34] LABS: Basophils # 0.1 10^3/uL (0.0-0.1); Basophils % 0.4 %; Hematocrit 39.1 % (36-47); Lymphocytes # 0.4 10^3/uL (0.8-4.8); Lymphocytes % 1.9 %; Mean Corpuscular HGB Conc 30.9 g/dL (30-55); Mean Corpuscular Hemoglobin 30.3 pg (27-33); Mean Corpuscular Volume 97.8 fl (85-98); Mean Platelet Volume 10.7 fL (7.4-10.4); Monocytes # 0.5 10^3/uL (0.2-0.9); Monocytes % 2.3 %; Neutrophils # 21.75 10^3/uL (1.8-7.7); Neutrophils % 94.1 %; Nucleated Red Blood Cells % 0 %; Platelet Count 256 10^3/cmm (157-399); Red Cell Distribution Width 14.1 % (12.1-15.1); White Blood Count 23.08 10^3/uL (3.29-11.43)
--- NOTE | 2023-08-23 03:41 | PC.NURSE ---
Patient's CVP was 4, had auscultated coarse crackles, was SOB, had roughly 10mL output in urine after over 4L of fluid given, and her potassium was 5.9. Dr. Spivey was contacted and gave telephone orders to give 20mg IVP of Lasix ONCE and monitor output and potassium.
[2023-08-23] MEDS: heparin 5,000 unit/mL INJ 1 mL 5000 UNIT SUBCUT ×2 (03:42→15:00)
--- NOTE | 2023-08-23 03:47 | PC.NURSE ---
Due to patient's coarse crackles auscultated in lungs, Dr. Spivey was contacted and gave telephone orders to pause the maintenance fluids running at 75mL/hr.
[2023-08-23 03:55] LABS: Estmated Average Glucose 100; Hemoglobin A1C 5.1 % (4.0-6.0)
[2023-08-23 03:58] LABS: Chol HDL Ratio 3.33 mg/dL (0.0-4.40); Cholesterol 80 mg/dL (0-200); HDL Cholesterol 24 mg/dL (60-100); LDL Cholesterol Calculated 38 mg/dL (50-129); LDL HDL Ratio 1.58 RATIO (0.00-3.22); Triglycerides 91 mg/dL (0-150)
[2023-08-23 03:59] LABS: Alanine Aminotransferase 28 U/L (0-33); Alkaline Phosphatase 193 U/L (35-105); Anion Gap 24.1 (5-19); Aspartate Amino Transferase 96 U/L (0-32); Blood Urea Nitrogen 60 mg/dL (8-23); Calcium 6.6 mg/dL (8.5-10.5); Carbon Dioxide 19 mmol/L (22-29); Chloride 99 mmol/L (98-107); Creatinine Clr Calc Pharmacy 12.9616; Globulin 3.3 g/dL (1.3-4.6); Glucose 140 mg/dL (65-115); Magnesium 2.3 mg/dL (1.7-2.3); Osmolality Calculated 301 mOsm/kg (285-295); Potassium 6.1 mmol/L (3.5-5.1); Sodium 136 mmol/L (136-145); Total Bilirubin 0.9 mg/dL (0.15-1.2); Total Protein 6.3 g/dL (6.6-8.7)
[2023-08-23 04:02] LABS: Phosphorus 7.9 mg/dL (2.5-4.5); Procalcitonin 14.08 ng/mL (0-0.5)
[2023-08-23 04:12] LABS: Folate Level 5.5 ng/mL (4.8-37.3)
[2023-08-23] MEDS: norepinephrine 4 MG/250 ML BAG 60 MG IV (04:28)
[2023-08-23] MEDS: piperacillin-tazobactam 3.375 GM in sodium chloride 0.9% (plus) 50 ML IV ×2 (04:29→17:05)
[2023-08-23 04:36] LABS: Bacillus cereus group Not Detected (NOT DETECT); Bacillus subtillis group Not Detected (NOT DETECT); Corynebacterium Not Detected (NOT DETECT); Cutibacterium acnes (P.acnes) Not Detected (NOT DETECT); Enterococcus Not Detected (NOT DETECT); Enterococcus faecalis Not Detected (NOT DETECT); Enterococcus faecium Not Detected (NOT DETECT); Lactobacillus species Not Detected (NOT DETECT); Listeria Not Detected (NOT DETECT); Listeria monocytogenes Not Detected (NOT DETECT); Micrococcus Not Detected (NOT DETECT); Pan Candida Not Detected (NOT DETECT); Pan Gram-Negative Not Detected (NOT DETECT); Staphylococcus epidermidis Not Detected (NOT DETECT); Staphylococcus lugdunensis Not Detected (NOT DETECT); Staphylococcus species Not Detected (NOT DETECT); Streptococcus agalactiae Not Detected (NOT DETECT); Streptococcus anginosus group Not Detected (NOT DETECT); Streptococcus pneumoniae Detected (NOT DETECT); Streptococcus pyogenes Not Detected (NOT DETECT); Streptococcus species Detected (NOT DETECT)
[2023-08-23] MEDS: haloperidol inj 5 mg/mL INJ 1 mL 1 MG IM ×2 (05:27→21:53)
[2023-08-23 07:41] LABS: Glucose Point of Care 168 mg/dL (70-110)
[2023-08-23] MEDS: norepinephrine 4 MG/250 ML BAG 52.5 MG IV (08:12)
[2023-08-23] MEDS: aspirin 81 mg EC Tablet PO (08:13)
[2023-08-23] MEDS: budesonide 0.5 mg/2 mL Neb INHALATION ×2 (08:52→19:57)
--- NOTE | 2023-08-23 09:11 | P.CONIM_ITS ---
Providers/Reason For Consult 2 Consulting Physician/Specialty*: [facility]/Nephrology Reason for Consult*: ALBINO Attending Physician: Diana Stock MD Primary Care Provider: Shruthi Daniel MD History of Present Illness History of Present Illness Mildred Veliz is a 77 year old female Patient is a 77-year-old female with past medical history of hypertension, CHF, CVA, DVT morbid obesity, COPD was brought to the emergency department due to altered mental status generalized weakness. CT scan in the emergency department has showed acute right frontal cortical stroke. Patient is currently in ICU on Levophed and vasopressin, on 5 L O2. Renal function was normal at baseline but currently the creatinine is in the 5 range, oliguric, also has hyperkalemia with a potassium more than 6. Review of Systems 2 Narrative: negative Medications/Allergies Home Medications Medication Instructions Recorded Confirmed Last Taken Type albuterol sulfate 90 mcg/actuation 1 inh inhalation QID PRN Shortness 05/22/20 08/22/23 Unknown History aerosol inhaler (ProAir HFA) Of Breath Or Wheezing carvedilol 6.25 mg tablet 6.25 mg PO BID 05/22/20 08/22/23 08/21/23 History celecoxib 100 mg capsule 100 mg PO BID 05/22/20 08/22/23 08/21/23 History citalopram 10 mg tablet 10 mg PO DAILY 08/22/23 08/22/23 08/21/23 History donepezil 5 mg tablet 5 mg PO BEDTIME 08/22/23 08/22/23 08/21/23 History furosemide 20 mg tablet 20 mg PO DAILY 08/22/23 08/22/23 08/21/23 History nitrofurantoin 100 mg PO BID 08/22/23 08/22/23 08/21/23 History monohydrate/macrocrystals 100 mg capsule potassium chloride 8 mEq 8 meq PO DAILY 08/22/23 08/22/23 08/21/23 History tablet,extended release tramadol 50 mg tablet 50 mg PO DAILY PRN Pain 08/22/23 08/22/23 Unknown History venlafaxine 150 mg 150 mg PO DAILY 08/22/23 08/22/23 08/21/23 History capsule,extended release 24 hr Allergies Allergy/AdvReac Type Severity Reaction Status Date / Time No Known Allergies Allergy Verified 08/22/23 11:03 Current Medications Generic Name Dose Route Start Last Admin Trade Name Freq PRN Reason Stop Dose Admin Albuterol/Ipratropium 3 ml 08/22/23 20:00 08/23/23 08:52 Ipratropium-Albuterol 3 Ml Neb INHALATION 3 ml Q6H.RESP ELENA Administration Aspirin 81 mg 08/23/23 09:00 08/23/23 08:13 Aspirin 81 Mg Ec Tablet PO 81 mg DAILY ELENA Administration Atorvastatin Calcium 40 mg 08/22/23 21:00 08/22/23 22:41 Atorvastatin 40 Mg Tablet PO 40 mg BEDTIME ELENA Administration Budesonide 0.5 mg 08/22/23 20:00 08/23/23 08:52 Budesonide 0.5 Mg/2 Ml Neb INHALATION 0.5 mg BID.RESPIRATORY ELENA Administration Haloperidol Lactate 1 mg 08/22/23 21:27 08/23/23 05:27 Haloperidol Inj 5 Mg/Ml Inj 1 Ml IM 1 mg Q4H PRN Administration AGITATION Heparin Sodium (Porcine) 5,000 unit 08/22/23 14:54 08/23/23 03:42 Heparin 5,000 Unit/Ml Inj 1 Ml SUBCUT 5,000 unit Q12H ELENA Administration norepinephrine 4 mg in 250 mls @ 0 mls/hr 08/22/23 14:00 08/23/23 08:12 Levophed IV 14 mcg/min .Q0M ELENA 52.5 mls/hr Administration Protocol Per Protocol Piperacillin Sod/Tazobactam 50 mls @ 12.5 mls/hr 08/22/23 17:00 08/23/23 04:29 Sod 3.375 gm/ Sodium Chloride IV 12.5 mls/hr Q12H ELENA Administration Protocol Vancomycin/PEG/NADA/Lysine/Water 1,750 mg in 350 mls @ 233.333 mls/hr 08/22/23 16:00 08/22/23 16:35 Vancocin IV 233.33 mls/hr Q48H ELENA Administration Vasopressin 40 unit in 100 mls @ 0.075 mls/min 08/22/23 18:00 08/22/23 21:46 Vasostrict IV 0.08 mls/min CONT ELENA Administration Sodium Chloride 500 mls @ 2 mls/hr 08/22/23 18:00 04/08/24 00:33 Sodium Chloride 0.9% IV 2 mls/hr .Q24H ELENA Administration Methylprednisolone Sodium Succinate 60 mg 08/23/23 00:00 08/23/23 05:27 Methylprednisolone Sod Succ 125 Mg/2 Ml Inj IVP 60 mg Q6H ELENA Administration Morphine Sulfate 2 mg 08/22/23 14:54 08/22/23 21:30 Morphine 4 Mg/Ml Sdv 1 Ml IVP 2 mg Q4H PRN Administration SEVERE PAIN Pantoprazole Sodium 40 mg 08/22/23 14:54 08/22/23 15:36 Pantoprazole 40 Mg Sdv IVP 40 mg Q24H ELENA Administration PFSH Acute 2 PFSH: Medical History (Updated 08/22/23 @ 17:51 by Alberto Nevarez MD) Arthritis Morbid obesity with body mass index of 45.0-49.9 in adult Cerebrovascular accident (CVA) History of palpitations DVT of leg (deep venous thrombosis) Surgical History (Updated 08/22/23 @ 17:41 by Alberto Nevarez MD) Hx of breast biopsy Social History Smoking and tobacco/nicotine status: former use of tobacco/nicotine Vitals/I&O/Wt Last Vital Signs Temp 97.2 F L 08/23/23 08:00 Pulse 92 08/23/23 08:20 Resp 20 H 08/23/23 08:00 BP 99/72 08/23/23 08:00 Pulse Ox 95 08/23/23 08:00 O2 Del Method High Flow Nasal Cannula 08/23/23 08:00 O2 Flow Rate 5 08/23/23 08:00 08/22/23 08/23/23 08/23/23 22:59 06:59 14:59 Intake Total 884.85 / 5853.90 1945.033 / 7798.933 101.5 / 101.5 Output Total 5 / 5 0 / 0 Balance 884.85 / 5853.90 1940.033 / 7793.933 101.5 / 101.5 Weight last 48 hrs Weight 138.018 kg Weight 130.635 kg Physical Exam 2 Narrative: awake , alert HEENT S1S2 RRR per report Lungs + crackles per report + edema Urinary Catheter Management: Whitten: Cath Placed During This Visit: yes Reason for Continuing Indwelling Catheter: Accurate Measurement of Urinary Output in Critically Ill Patients Urinary Catheter Date of Insertion: 08/22/23 Urinary Catheter Time of Insertion: 16:00 Data 08/23/23 02:50 08/23/23 12:14 Micro: Microbiology 08/22/23 11:26 Urine Culture - Final Urine,Clean Catch 08/22/23 11:11 Blood Culture - Preliminary Blood Streptococcus pneumoniae 08/22/23 11:05 Blood Culture - Preliminary Blood Streptococcus pneumoniae A&P Assessment and plan (1) Acute renal failure: 1. Acute kidney injury: Baseline creatinine normal couple of weeks ago. Now has an ALBINO with a creatinine in the 5 range, oliguric, patient also is hyperkalemic and has volume overload. -We will medically manage potassium with insulin plus dextrose, bicarbonate and Lasix. Also give a dose of Kayexalate if patient tolerates. Repeat BMP later today. -She is currently on BiPAP, if potassium not improved or respiratory status gets worse patient will require temporary dialysis. Watch closely -Patient's daughter at bedside who agrees to proceed with dialysis if indicated. 2. Hyperkalemia: Should be on low K diet and medically manage potassium for now and if no improvement will require temporary HD 3. Sepsis, on pressors likely from pneumonia and UTI 4. Acute stroke, 5. Metabolic acidosis: Mild, monitor Patient evaluated using audiovisual cart. Time spent 40 minutes. Consult Attestations 2 Medical Necessity Statement: Per medicine team Coding Level of Care Code Acute Code for Chg Fwd Diagnoses Acute renal failure N17.9
[2023-08-23] MEDS: sodium bicarbonate 8.4% 1 mEq/mL 50mL Syr 100 MEQ IVP ×2 (09:22→23:03)
[2023-08-23] MEDS: FUROsemide 10 mg/mL SDV 10mL 60 MG IVP (09:28)
[2023-08-23] MEDS: citric acid-sodium citrate 30 mL UDC 60 ML PO (10:00)
--- NOTE | 2023-08-23 11:33 | PC.OT ---
OT evaluation held today per nursing request
--- NOTE | 2023-08-23 11:39 | PC.PT ---
Pt on hold per nursing due to numbers being off and Buckey the nurse stating we should hold. Pt not seen for eval at this time and will attempt tomorrow.
[2023-08-23 13:04] LABS: Anion Gap 24.2 (5-19); Blood Urea Nitrogen 65 mg/dL (8-23); Carbon Dioxide 21 mmol/L (22-29); Chloride 96 mmol/L (98-107); Creatinine Clr Calc Pharmacy 12.3668; Glucose 192 mg/dL (65-115); Osmolality Calculated 304 mOsm/kg (285-295); Potassium 6.2 mmol/L (3.5-5.1); Sodium 135 mmol/L (136-145)
--- NOTE | 2023-08-23 13:32 | PC.SLP ---
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
[2023-08-23] MEDS: vasopressin 40 UNIT/100 ML PREMIX 0.0800000000000000017 UNIT IV (14:05)
[2023-08-23] MEDS: norepinephrine 4 MG/250 ML BAG 30 MG IV (14:06)
--- NOTE | 2023-08-23 14:47 | ANES.PROC ---
Anesthesia Procedures Procedure/Date: 08/23/23 Arterial Line: Time Out Performed: Yes Consent: requested by attending/covering physician, from patient, from other, risks and benefits reviewed and patient agrees to proceed Size (Gauge): 20 Technique Used: guide wire technique Post-Procedure: dry sterile dressing placed Patient Tolerated Procedure: well and no complications Complications: none Site: right and radial
[2023-08-23] MEDS: sodium polystyrene sulfonate 15 gm/60 mL Btl PO (15:00)
[2023-08-23] MEDS: pantoprazole 40 mg SDV IVP (15:00)
[2023-08-23] MEDS: dextrose 10% 250 ML 1000 ML IV ×2 (16:14→23:03)
[2023-08-23] MEDS: insulin regular-human 10 UNIT in SYRINGE 1 EACH IVP ×2 (16:17→23:04)
--- NOTE | 2023-08-23 17:35 | P.PN_ITS ---
Subjective 2 Subjective: Patient seen this morning, unable to speak in full sentences and was short of breath. She denies any chest pain cough or dizziness. The complaint of generalized weakness. Medications: Reviewed: Yes Vitals/I&O/Wt Last Vital Signs Temp 97.2 F L 08/23/23 08:00 Pulse 96 08/23/23 16:00 Resp 34 H 08/23/23 14:00 BP 120/84 08/23/23 10:30 Pulse Ox 96 08/23/23 16:00 O2 Del Method BiPAP 08/23/23 14:00 O2 Flow Rate 5 08/23/23 08:00 FiO2 40 08/23/23 16:00 08/23/23 08/23/23 08/23/23 06:59 14:59 22:59 Intake Total 1945.033 / 7798.933 804.82 / 804.82 Output Total 5 / 5 0 / 0 5 / 5 Balance 1940.033 / 7793.933 804.82 / 804.82 -5 / 799.82 Weight last 48 hrs Weight 140.704 kg Weight 138.018 kg Weight 130.635 kg Physical Exam 2 Narrative: She is alert awake oriented x 3, in moderate respiratory distress Chest bilateral coarse rhonchi and crackles present Cardiovascular normal heart sounds no murmurs Abdomen soft nontender nondistended normal bowel sounds Extremities 2+ bilateral pitting edema present Urinary Catheter Management: Whitten: Cath Placed During This Visit: yes Reason for Continuing Indwelling Catheter: Accurate Measurement of Urinary Output in Critically Ill Patients Urinary Catheter Date of Insertion: 08/22/23 Urinary Catheter Time of Insertion: 16:00 Data 08/23/23 02:50 08/23/23 12:14 Micro: Microbiology 08/22/23 11:26 Urine Culture - Final Urine,Clean Catch 08/22/23 11:11 Blood Culture - Preliminary Blood Streptococcus pneumoniae 08/22/23 11:05 Blood Culture - Preliminary Blood Streptococcus pneumoniae A&P Assessment and plan (1) Acute renal failure: 1. Acute kidney injury: Baseline creatinine normal couple of weeks ago. Now has an ALBINO with a creatinine in the 5 range, oliguric, patient also is hyperkalemic and has volume overload. will manage potassium with insulin plus dextrose, bicarbonate and Lasix. Also give a dose of Kayexalate if patient tolerates as per nephrology repeat BMP later today. If hyperkalemia does not improve plan for hemodialysis Plan discussed with daughter at bedside by nephrology (2) Septic shock: Continue pressors norepinephrine and vasopressin to keep a MAP of 65-[address] earlier today for continuous blood pressure recording Blood culture, urine culture, MRSA swab, procalcitonin, urine Legionella, bacterial antigen, sputum culture still pending Continue IV vancomycin and Zosyn for now (3) Acute respiratory failure with hypoxia: Continue Pulmicort twice daily, DuoNebs every 6 hour. Solu-Medrol 60 mg every 4 hours. Continue BiPAP for now (4) Cerebrovascular accident (CVA): Speech therapy, physical therapy, Occupational Therapy. N.p.o. for now, since she is on BiPAP Aspirin 81 mg daily, atorvastatin 40 mg daily for now. (5) Hyperkalemia: Follow-up BMP today (6) Left lower lobe pneumonia: (7) COPD (chronic obstructive pulmonary disease): Qualifiers: COPD type: unspecified COPD Qualified Code(s): J44.9 - Chronic obstructive pulmonary disease, unspecified (8) Acute UTI: Follow-up urine culture. Next antibiotics above will cover for UTI as well. Plan CODE STATUS: She is full code for now Protonix will be sufficient for PUD prophylaxis Heparin 5000 every 12 hourly for DVT prophylaxis. Plan of care discussed with daughter at bedside this morning. Attestations 2 Medical Necessity Statement*: She needs more than 2 days of continued hospitalization since she is hemodynamically unstable and with acute hypoxic respiratory failure on BiPAP, acute renal failure and might need hemodialysis Time Spent in Patient Care: 45 minutes Procedures Arterial Line Size (Gauge): 20 Coding Level of Care Code Critical Care >/= 30 minutes Diagnoses Acute renal failure N17.9 Septic shock A41.9; R65.21 Acute respiratory failure with hypoxia J96.01 Cerebrovascular accident (CVA) I63.9 Hyperkalemia E87.5 Left lower lobe pneumonia J18.9 Chronic obstructive pulmonary disease, unspecified COPD type J44.9 COPD type: unspecified COPD Acute UTI N39.0 Time Spent (min) 45
--- NOTE | 2023-08-23 17:54 | PC.NURSE ---
Shift Summary: Patient stayed in bed all day. Remains on the fixed rate vasopressin. Levophed requirements are currently 10mcg/min,dwon from 14/min this morning. Still confused, but improved. Oriented to self and frequently situation, also more alert. Placed on bipap due to coarse crackles worsening. Patient has tremors, significant enough that NIBP monitoring was not possible so an ART line was placed. Nephrology has been consulted. BUN, creatnine, and potassium have all increased. Insulin and kayexalate have recently been given and labs are still pending as of the writing of this note. Total urine output for today has been 5mL. Bladder scan shows no retention.
[2023-08-23 18:09] LABS: Anion Gap 25.7 (5-19); Blood Urea Nitrogen 69 mg/dL (8-23); Carbon Dioxide 19 mmol/L (22-29); Chloride 97 mmol/L (98-107); Creatinine Clr Calc Pharmacy 12.1536; Glucose 171 mg/dL (65-115); Osmolality Calculated 306 mOsm/kg (285-295); Potassium 5.7 mmol/L (3.5-5.1); Sodium 136 mmol/L (136-145)
[2023-08-23 18:14] LABS: Calcium 5.9 mg/dL (8.5-10.5)
[2023-08-23 18:31] LABS: Glucose Point of Care 156 mg/dL (70-110)
[2023-08-23] MEDS: norepinephrine 4 MG/250 ML BAG 37.5 MG IV (20:21)
--- NOTE | 2023-08-23 20:26 | PC.NURSE ---
Upon arrival to shift, patient's levophed was running at 10mcg/min, MAR changed to reflect dose.
[2023-08-23] MEDS: atorvastatin 40 mg Tablet PO (20:58)
[2023-08-23 21:11] LABS: Anion Gap 26.3 (5-19); Blood Urea Nitrogen 70 mg/dL (8-23); Carbon Dioxide 20 mmol/L (22-29); Chloride 92 mmol/L (98-107); Creatinine Clr Calc Pharmacy 11.9476; Glucose 168 mg/dL (65-115); Osmolality Calculated 298 mOsm/kg (285-295); Potassium 6.3 mmol/L (3.5-5.1); Sodium 132 mmol/L (136-145)
[2023-08-23 21:19] LABS: Calcium 5.7 mg/dL (8.5-10.5)
[2023-08-23] MEDS: calcium gluconate 0.9% NaCL 1 GM/50 ML PREMIX IV ×2 (22:15→22:50)
--- NOTE | 2023-08-23 22:30 | PC.NURSE ---
Creatinine/k+ Patient's creatinine 5.9 and her potassium 6.3. Message left for Dr. Craven earlier in the night. Around 2220, Dr. Craven called and relayed the following orders: keep patient npo for temporary dialysis catheter in AM, administer 10 units regular insulin IVP once one, give a 250 ml bolus of D10, give 2 amps of sodium bicarb once, and administer 80 mg lasix IVP once. See MAR for details.
[2023-08-23 22:34] LABS: Glucose Point of Care 151 mg/dL (70-110)
[2023-08-23] MEDS: FUROsemide 10 mg/mL SDV 10mL 80 MG IVP (22:58)
[2023-08-23] MEDS: haloperidol inj 5 mg/mL INJ 1 mL IVP (23:12)
--- NOTE | 2023-08-23 23:55 | PC.NURSE ---
Patient's grinder carbon plant was 5.9 and calcium level was 5.7. Attempted to contact Dr. Craven and left a message. Dr. Cárdenas was then notified and gave telephone orders to give 2g calcium gluconate ONCE IVPB.
[2023-08-24] VITALS (125 sets, daily range): BP systolic 95–133; BP diastolic 51–109; PULSE 64–157; RESP 15–47; TEMP 35.8–36.9; O2SAT 89–100; BMI 50.1
--- NOTE | 2023-08-24 00:52 | PC.NURSE ---
Increased Patient agitation: Patient was becoming more agitated as the shift progressed, asking for her son and pulling at her lines stating I don't trust anyone . The PRN order for 1mg Haldol IM was given but did not help with the patient's agitation or anxiety. Dr. Cárdenas was contacted and put in an order for 5mg Haldol IVP ONCE.
[2023-08-24 01:12] LABS: Anion Gap 24.8 (5-19); Blood Urea Nitrogen 73 mg/dL (8-23); Carbon Dioxide 22 mmol/L (22-29); Chloride 92 mmol/L (98-107); Creatinine Clr Calc Pharmacy 11.5559; Glucose 178 mg/dL (65-115); Osmolality Calculated 302 mOsm/kg (285-295); Potassium 5.8 mmol/L (3.5-5.1); Sodium 133 mmol/L (136-145)
[2023-08-24] MEDS: ipratropium-albuterol 3 mL Neb INHALATION ×4 (01:55→20:31)
[2023-08-24] MEDS: heparin 5,000 unit/mL INJ 1 mL 5000 UNIT SUBCUT (02:40)
--- NOTE | 2023-08-24 02:50 | PC.NURSE ---
Addendum entered by Rossana Mosqueda RN 08/24/23 03:14: *Ionized calcium Original Note: Calcium increase: Patient's calcium increased from 5.7 to 6 after the 2g of calcium gluconate ordered by Dr. Cárdenas. Dr. Cárdenas was notified of increase and gave telephone orders to recheck level at 0400 with a full set of labs including an iodized calcium.
--- NOTE | 2023-08-24 03:11 | PC.NURSE ---
General Surgery consult: Dr. Cárdenas to speak with 7am physician regarding general surgery consult for temporary dialysis catheter placement.
[2023-08-24] MEDS: norepinephrine 4 MG/250 ML BAG 15 MG IV ×2 (03:43→18:30)
[2023-08-24 04:30] LABS: Basophils # 0.1 10^3/uL (0.0-0.1); Basophils % 0.4 %; Eosinophils # 0.1 10^3/uL (0.0-0.8); Eosinophils % 0.5 %; Lymphocytes # 0.7 10^3/uL (0.8-4.8); Lymphocytes % 3.8 %; Mean Corpuscular HGB Conc 32.8 g/dL (30-55); Mean Corpuscular Hemoglobin 30.8 pg (27-33); Mean Platelet Volume 10.2 fL (7.4-10.4); Monocytes # 0.9 10^3/uL (0.2-0.9); Monocytes % 4.9 %; Neutrophils # 16.17 10^3/uL (1.8-7.7); Neutrophils % 89.6 %; Nucleated Red Blood Cells % 0 %; Platelet Count 249 10^3/cmm (157-399); Red Blood Count 3.83 10^6/uL (3.85-5.65); Red Cell Distribution Width 14.2 % (12.1-15.1); White Blood Count 18.07 10^3/uL (3.29-11.43)
[2023-08-24 04:57] LABS: Alanine Aminotransferase 34 U/L (0-33); Alkaline Phosphatase 210 U/L (35-105); Anion Gap 26.3 (5-19); Aspartate Amino Transferase 134 U/L (0-32); Blood Urea Nitrogen 76 mg/dL (8-23); Calcium 6.1 mg/dL (8.5-10.5); Carbon Dioxide 21 mmol/L (22-29); Chloride 93 mmol/L (98-107); Creatinine Clr Calc Pharmacy 11.1891; Globulin 3.9 g/dL (1.3-4.6); Glucose 150 mg/dL (65-115); Magnesium 2.5 mg/dL (1.7-2.3); Osmolality Calculated 303 mOsm/kg (285-295); Potassium 6.3 mmol/L (3.5-5.1); Sodium 134 mmol/L (136-145); Total Bilirubin 0.7 mg/dL (0.15-1.2); Total Protein 6.9 g/dL (6.6-8.7)
[2023-08-24] MEDS: methylPREDNISolone sod succ 125 mg/2 mL INJ 60 MG IVP ×4 (05:05→23:05)
[2023-08-24] MEDS: piperacillin-tazobactam 3.375 GM in sodium chloride 0.9% (plus) 50 ML IV ×2 (05:06→17:00)
[2023-08-24 05:08] LABS: Phosphorus 8.9 mg/dL (2.5-4.5)
[2023-08-24 05:49] LABS: Ionized Calcium 0.7 mmol/L (1.1-1.4)
[2023-08-24] MEDS: morphine 4 mg/mL SDV 1 mL 2 MG IVP ×2 (06:24→21:07)
--- NOTE | 2023-08-24 06:25 | ECG_ITS ---
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 Measurements Intervals Breaks Rate: 103 P: 74 HI: 215 QRS: -40 QRSD: 102 T: 20 QT: 368 QTc: 484 Interpretive Statements SINUS TACHYCARDIA WITH FIRST DEGREE AV BLOCK LEFT AXIS DEVIATION [QRS AXIS < -30] PATTERN CONSISTENT WITH PULMONARY DISEASE Compared to ECG 08/09/2023 21:12:11 First degree AV block now present Left-axis deviation now present Sinus rhythm no longer present Left anterior fascicular block no longer present Myocardial infarct finding no longer present Electronically Signed On 08-24-2023 21:20:11 CDT by Khanh Buckley M.D. [id number]
--- NOTE | 2023-08-24 06:27 | PC.NURSE ---
Chest Pain Patient complained of chest pain to sitter. When assessing patient, patient indicated that she was in pain in her chest, back, as well as face. Patient denies nausea but appears diaphoretic. When asked how severe her chest pain is, patient just waved toward her chest and indicated pain. EKG performed showing sinus tach. Dr. Cárdenas notified; orders received to obtain a troponin series and administer 2 gm calcium gluconate IVPB once.
[2023-08-24] MEDS: calcium gluconate 0.9% NaCL 1 GM/50 ML PREMIX IV ×2 (06:55→08:10)
[2023-08-24 07:20] LABS: Troponin(5th) Baseline 1181 ng/L (0-10)
[2023-08-24] MEDS: budesonide 0.5 mg/2 mL Neb INHALATION ×2 (07:40→20:31)
--- NOTE | 2023-08-24 07:48 | PC.NURSE ---
Baseline troponin 1181, patient reported improved chest pain of 3/10 no longer diaphoretic. HCP aware no n.o. at this time
--- NOTE | 2023-08-24 07:59 | PC.NURSE ---
Attempted an ekg, due to tremor unable to obtain accurate EKG, HCP gave t.o. for cardiology consult. daughter at bedside
[2023-08-24] MEDS: aspirin 81 mg EC Tablet PO (08:10)
[2023-08-24 09:30] LABS: Troponin 5 2HR 1275 ng/L (0-10); Troponin 5 2HR Delta 94 ABS# (0-10)
--- NOTE | 2023-08-24 09:33 | PM.PN ---
Subjective Subjective: on pressors on 5L O2 Medications: Reviewed: Yes Vitals/I&O/Wt Last Vital Signs Temp 97.5 F L 08/24/23 03:55 Pulse 79 08/24/23 07:45 Resp 22 H 08/24/23 07:40 BP 102/63 08/24/23 06:34 Pulse Ox 91 08/24/23 07:45 O2 Del Method BiPAP 08/24/23 07:40 O2 Flow Rate 5 08/24/23 00:00 FiO2 50 08/24/23 07:45 08/23/23 08/24/23 08/24/23 22:59 06:59 14:59 Intake Total 237.5 / 1042.32 620.225 / 1662.545 50 / 50 Output Total 50 Balance 232.5 / 1037.32 570.225 / 1607.545 50 / 50 Weight last 48 hrs Weight 141 kg Weight 140.704 kg Weight 138.018 kg Weight 130.635 kg Physical Exam Narrative: awake , alert HEENT S1S2 RRR per report Lungs + crackles per report + edema Urinary Catheter Management: Whitten: Cath Placed During This Visit: yes Reason for Continuing Indwelling Catheter: Accurate Measurement of Urinary Output in Critically Ill Patients Urinary Catheter Date of Insertion: 08/22/23 Urinary Catheter Time of Insertion: 16:00 Data 08/24/23 03:50 08/24/23 03:50 Micro: Microbiology 08/22/23 11:26 Urine Culture - Final Urine,Clean Catch 08/22/23 11:11 Blood Culture - Preliminary Blood Streptococcus pneumoniae 08/22/23 11:05 Blood Culture - Preliminary Blood Streptococcus pneumoniae A&P Assessment and plan (1) Acute renal failure: 1. Acute kidney injury: Baseline creatinine normal couple of weeks ago. Now has an ALBINO with a creatinine in the 5 range, oliguric, patient also is hyperkalemic and has volume overload. -- Renal fxn worse , persistently hyperkalemia , - recommend temporary hD catheter placement and plan for HD today -Patient's daughter at bedside who agrees to proceed with dialysis if indicated. 2. Hyperkalemia:ordered med management , plan for temporary HD 3. Sepsis, on pressors likely from pneumonia and UTI 4. Acute stroke, 5. Metabolic acidosis: Mild, monitor Patient evaluated using audiovisual cart. Time spent 20 minutes. Attestations Medical Necessity Statement*: per the [facility] Procedures Arterial Line Size (Gauge): 20 Coding Level of Care Code Acute Code for Chg Fwd Diagnoses Acute renal failure N17.9
[2023-08-24 09:35] LABS: Hepatitis B Surface AB < 3.5 (11.5-1000); Hepatitis B Surface Antigen Non-Reactive (Nonreactive)
[2023-08-24] MEDS: sodium bicarbonate 8.4% 1 mEq/mL 50mL Syr 100 MEQ IVP (10:19)
[2023-08-24] MEDS: vasopressin 40 UNIT/100 ML PREMIX 0.0800000000000000017 UNIT IV (12:12)
[2023-08-24 12:14] LABS: Methicillin-Resist S.aureu PCR NOT DETECTED (NOT DETECTED)
--- NOTE | 2023-08-24 12:50 | P.CONIM_ITS ---
Providers/Reason For Consult 2 Consulting Physician/Specialty*: Dr. Odell Julien, DO/General surgery Reason for Consult*: Temporary hemodialysis catheter placement Attending Physician: Diana Stock MD Primary Care Provider: Shruthi Daniel MD History of Present Illness History of Present Illness Mildred Veliz is a 77 year old female who is currently in the intensive care unit after having a CVA. She is in septic shock with pneumonia and on vasopressors. She also has an acute kidney injury and hyperkalemia. History and review of systems are limited secondary to patient's mental and medical status. General surgery was consulted for hemodialysis catheter placement due to the hyperkalemia. Consent was obtained from the daughter. Review of Systems 2 General: Reports: ROS unobtainable due to medical condition and ROS unobtainable due to mental status Medications/Allergies Home Medications Medication Instructions Recorded Confirmed Last Taken Type albuterol sulfate 90 mcg/actuation 1 inh inhalation QID PRN Shortness 05/22/20 08/22/23 Unknown History aerosol inhaler (ProAir HFA) Of Breath Or Wheezing carvedilol 6.25 mg tablet 6.25 mg PO BID 05/22/20 08/22/23 08/21/23 History celecoxib 100 mg capsule 100 mg PO BID 05/22/20 08/22/23 08/21/23 History citalopram 10 mg tablet 10 mg PO DAILY 08/22/23 08/22/23 08/21/23 History donepezil 5 mg tablet 5 mg PO BEDTIME 08/22/23 08/22/23 08/21/23 History furosemide 20 mg tablet 20 mg PO DAILY 08/22/23 08/22/23 08/21/23 History nitrofurantoin 100 mg PO BID 08/22/23 08/22/23 08/21/23 History monohydrate/macrocrystals 100 mg capsule potassium chloride 8 mEq 8 meq PO DAILY 08/22/23 08/22/23 08/21/23 History tablet,extended release tramadol 50 mg tablet 50 mg PO DAILY PRN Pain 08/22/23 08/22/23 Unknown History venlafaxine 150 mg 150 mg PO DAILY 08/22/23 08/22/23 08/21/23 History capsule,extended release 24 hr Allergies Allergy/AdvReac Type Severity Reaction Status Date / Time No Known Allergies Allergy Verified 08/22/23 11:03 Current Medications Generic Name Dose Route Start Last Admin Trade Name Freq PRN Reason Stop Dose Admin Albuterol/Ipratropium 3 ml 08/22/23 20:00 08/24/23 07:40 Ipratropium-Albuterol 3 Ml Neb INHALATION 3 ml Q6H.RESP ELENA Administration Aspirin 81 mg 08/23/23 09:00 08/24/23 08:10 Aspirin 81 Mg Ec Tablet PO 81 mg DAILY ELENA Administration Atorvastatin Calcium 40 mg 08/22/23 21:00 08/23/23 20:58 Atorvastatin 40 Mg Tablet PO 40 mg BEDTIME ELENA Administration Budesonide 0.5 mg 08/22/23 20:00 08/24/23 07:40 Budesonide 0.5 Mg/2 Ml Neb INHALATION 0.5 mg BID.RESPIRATORY ELENA Administration Haloperidol Lactate 1 mg 08/22/23 21:27 08/23/23 21:53 Haloperidol Inj 5 Mg/Ml Inj 1 Ml IM 1 mg Q4H PRN Administration AGITATION Heparin Sodium (Porcine) 5,000 unit 08/22/23 14:54 08/24/23 08:45 Heparin 5,000 Unit/Ml Inj 1 Ml SUBCUT Not Given Q12H ELENA norepinephrine 4 mg in 250 mls @ 0 mls/hr 08/22/23 14:00 08/24/23 05:43 Levophed IV 0 mcg/min .Q0M ELENA 0 mls/hr Titration Protocol Per Protocol Piperacillin Sod/Tazobactam 50 mls @ 12.5 mls/hr 08/22/23 17:00 08/24/23 05:06 Sod 3.375 gm/ Sodium Chloride IV 12.5 mls/hr Q12H ELENA Administration Protocol Vancomycin/PEG/NADA/Lysine/Water 1,750 mg in 350 mls @ 233.333 mls/hr 08/22/23 16:00 08/23/23 10:46 Vancocin IV Infused Q48H ELENA Infusion Vasopressin 40 unit in 100 mls @ 0.075 mls/min 08/22/23 18:00 08/24/23 12:12 Vasostrict IV 0.08 mls/min CONT ELENA Administration Sodium Chloride 500 mls @ 2 mls/hr 08/22/23 18:00 08/23/23 00:33 Sodium Chloride 0.9% IV 2 mls/hr .Q24H ELENA Administration Methylprednisolone Sodium Succinate 60 mg 08/23/23 00:00 08/24/23 12:12 Methylprednisolone Sod Succ 125 Mg/2 Ml Inj IVP 60 mg Q6H ELENA Administration Morphine Sulfate 2 mg 08/22/23 14:54 08/24/23 06:24 Morphine 4 Mg/Ml Sdv 1 Ml IVP 2 mg Q4H PRN Administration SEVERE PAIN Pantoprazole Sodium 40 mg 08/22/23 14:54 08/23/23 15:00 Pantoprazole 40 Mg Sdv IVP 40 mg Q24H ELENA Administration PFSH Acute 2 PFSH: Medical History Arthritis Morbid obesity with body mass index of 45.0-49.9 in adult Cerebrovascular accident (CVA) History of palpitations DVT of leg (deep venous thrombosis) Surgical History Hx of breast biopsy Social History Smoking and tobacco/nicotine status: former use of tobacco/nicotine Vitals/I&O/Wt Last Vital Signs Temp 97.5 F L 08/24/23 03:55 Pulse 109 H 08/24/23 12:00 Resp 32 H 08/24/23 12:00 BP 98/56 08/24/23 12:00 Pulse Ox 96 08/24/23 12:00 O2 Del Method BiPAP 08/24/23 07:40 O2 Flow Rate 5 08/24/23 00:00 FiO2 50 08/24/23 07:45 08/23/23 08/24/23 08/24/23 22:59 06:59 14:59 Intake Total 237.5 / 1042.32 620.225 / 1662.545 150 / 150 Output Total 5 / 5 50 / 55 Balance 232.5 / 1037.32 570.225 / 1607.545 150 / 150 Weight last 48 hrs Weight 310 lb 13.628 oz Weight 310 lb 3.2 oz Weight 304 lb 4.443 oz Physical Exam 2 Narrative: General : Patient is well developed , no acute distress, oriented only to self Head : Normal cephalic, a-traumatic. Ears : Pinnae and external canal are normal. Hearing is normal. Eyes : PERRLA, Sclera and injection are normal. No conjunctival discharge. Nose : Mucous membranes are without erythema. Throat : buccal mucosa is normal, gums are without significant recession or hypertrophy. Lungs : Equal chest rise bilaterally, no use of accessory muscles, trachea is midline. Cor : Tachycardic and rhythm are normal. Abdomen : Soft, ND, NT, no g/r/m Extremities : No edema, no cyanosis or clubbing, dorsalis pedis pulses are present bilaterally, non-tender to palpation of calves. Upper extremities are normal bilaterally. Back : non-tender to palpation, no CVA tenderness. Neuro : CN II - XII intact, Upper and lower extremities have equal and full strength Urinary Catheter Management: Whitten: Cath Placed During This Visit: yes Reason for Continuing Indwelling Catheter: Accurate Measurement of Urinary Output in Critically Ill Patients Urinary Catheter Date of Insertion: 08/22/23 Urinary Catheter Time of Insertion: 16:00 Data 08/24/23 03:50 08/24/23 03:50 Micro: Microbiology 08/22/23 11:26 Urine Culture - Final Urine,Clean Catch 08/22/23 11:11 Blood Culture - Preliminary Blood Streptococcus pneumoniae 08/22/23 11:05 Blood Culture - Preliminary Blood Streptococcus pneumoniae A&P Assessment and plan (1) Acute renal failure: (2) Hyperkalemia: (3) Septic shock: (4) Left lower lobe pneumonia: Plan Temporary hemodialysis catheter placement right femoral vein The risks and benefits of the procedure, including but not limited to, bleeding, infection, infection requiring Mediport removal antibiotic therapy and repeat surgery, damage to surrounding structures, scar, numbness, pain, pneumothorax requiring thoracostomy tube, were explained to the patient. He/She is understanding of the risks and wishes to proceed. Procedures Arterial Line Size (Gauge): 20 Coding Level of Care Code 59756 Diagnoses Acute renal failure N17.9 Hyperkalemia E87.5 Septic shock A41.9; R65.21 Left lower lobe pneumonia J18.9
--- NOTE | 2023-08-24 12:57 | PM.DIACAT ---
Procedure Note: Procedure: Preoperative diagnosis: Acute renal failure and hyperkalemia requiring emergent dialysis Postoperative diagnosis: Same Procedure: Placement of Mahurkar catheter in the right femoral vein Surgeon: Dr. Odell Julien DO Anesthesia: Local Description of procedure: The patient's right groin was prepped and draped in a sterile manner. 5 mL of 1% lidocaine was infiltrated at the site of planned entry, an introducer needle was used to access the right femoral vein. Guidewire was passed through the introducer needle and the introducer needle was removed. Serial dilators were passed over the guidewire after the skin incision was extended using 11 blade and Mahurkar catheter was then passed over the guidewire and the guidewire was removed. The catheter was sutured to the skin using 2-0 Ethilon suture. Sterile dressings were applied. Coding Level of Care Code Acute Code for Chg Fwd
--- NOTE | 2023-08-24 13:14 | ECG_ITS ---
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 Measurements Intervals [place] Rate: 149 P: 0 [place]: 0 QRS: 7 QRSD: 116 T: 43 QT: 304 QTc: 479 Interpretive Statements Heavy baseline artifact Possible atrial fibrillation with rapid ventricular rate Further interpretation is not possible Electronically Signed On 08-24-2023 21:23:18 CDT by Khanh Buckley M.D. [id number]
--- NOTE | 2023-08-24 13:18 | PC.NURSE ---
called to bedside for patient having HR of >150 while on dialysis patient alert denies chest pain only complaint mild dizziness EKG obtained and results reported to attending provider instruction received to call consulted cardiology for further orders
--- NOTE | 2023-08-24 13:23 | PC.NURSE ---
Esmolol drip and digixon 124 mcg ivp one now per dr. escamilla
[2023-08-24 13:25] LABS: Troponin 5 6HR Delta 406 ng/L (0-12)
[2023-08-24 13:26] LABS: Troponin 5 6HR 1587 ng/L (0-10)
[2023-08-24] MEDS: digoxin 250 mcg/ml INJ 2 mL 125 MCG IVP (13:36)
[2023-08-24] MEDS: esmolol drip 2,500 MG/250 ML PREMIX 42.2999999999999972 MG IV (13:42)
[2023-08-24] MEDS: pantoprazole 40 mg SDV IVP (13:51)
[2023-08-24] MEDS: dexmedeTOMIDine 0.9 % NaCL 400 MCG/100 ML PREMIX 3.5299999999999998 MCG IV (14:55)
--- NOTE | 2023-08-24 15:10 | P.PN_ITS ---
Subjective 2 Subjective: Patient remained hemodynamically unstable overnight, she was on continuous BiPAP for hypoxic respiratory failure, Levophed and vasopressin for hypotension. She also noted to have increase jerky movements of her bilateral upper extremities. Hyperkalemia improved yesterday with IV dextrose plus insulin, sodium bicarbonate and Kayexalate. But this morning again hyperkalemia and acute renal failure worsened. She is awake alert and oriented but anxious and unable to speak in full sentences. Medications: Reviewed: Yes Vitals/I&O/Wt Last Vital Signs Temp 97.5 F L 08/24/23 03:55 Pulse 123 H 08/24/23 15:07 Resp 23 H 08/24/23 13:02 BP 98/56 08/24/23 12:00 Pulse Ox 94 08/24/23 15:07 O2 Del Method BiPAP 08/24/23 13:02 O2 Flow Rate 5 08/24/23 00:00 FiO2 50 08/24/23 15:07 08/24/23 08/24/23 08/24/23 06:59 14:59 22:59 Intake Total 620.225 / 1662.545 181.725 / 181.725 Output Total 50 / 55 Balance 570.225 / 1607.545 181.725 / 181.725 Weight last 48 hrs Weight 141 kg Weight 140.704 kg Weight 138.018 kg Physical Exam 2 Narrative: She is alert awake oriented x 3, in moderate respiratory distress Chest bilateral coarse rhonchi and crackles present Cardiovascular normal heart sounds no murmurs Abdomen soft nontender nondistended normal bowel sounds Extremities 2+ bilateral pitting edema present, jerky involuntary movements of bilateral upper extremities present Urinary Catheter Management: Whitten: Cath Placed During This Visit: yes Reason for Continuing Indwelling Catheter: Accurate Measurement of Urinary Output in Critically Ill Patients Urinary Catheter Date of Insertion: 08/22/23 Urinary Catheter Time of Insertion: 16:00 Data 08/24/23 03:50 08/24/23 03:50 A&P Assessment and plan (1) Acute renal failure: 1. Acute kidney failure: Likely secondary to septic shock, she is receiving hemodialysis today. Follow-up nephrology for further plan Follow-up labs in a.m. (2) Septic shock: Continue pressors norepinephrine and vasopressin to keep a MAP of 65-[address] earlier today for continuous blood pressure recording Blood culture, urine culture, MRSA swab, procalcitonin, urine Legionella, bacterial antigen, sputum culture still pending Continue IV vancomycin and Zosyn renal dosing for now (3) Acute respiratory failure with hypoxia: Continue Pulmicort twice daily, DuoNebs every 6 hour. Solu-Medrol 60 mg every 4 hours. Continue BiPAP for now (4) Cerebrovascular accident (CVA): Speech therapy, physical therapy, Occupational Therapy. N.p.o. for now, since she is on BiPAP Aspirin 81 mg daily, atorvastatin 40 mg daily for now. (5) Hyperkalemia: Secondary to acute renal failure (6) Left lower lobe pneumonia: (7) COPD (chronic obstructive pulmonary disease): Qualifiers: COPD type: unspecified COPD Qualified Code(s): J44.9 - Chronic obstructive pulmonary disease, unspecified (8) Acute UTI: Follow-up urine culture. Next antibiotics above will cover for UTI as well. (9) Atrial fibrillation with RVR: New onset atrial fibrillation with RVR at 1 30-1 40. She received 2 doses of IV digoxin and was Patient started on IV esmolol drip as per cardiology recommendations but she was still in A-fib with RVR at 140s, hence switched to IV amiodarone drip. She is also started on IV heparin drip for anticoagulation Plan for cardioversion if she remains persistently in A-fib with RVR (10) Elevated troponin: Secondary to septic shock and and evidence of myocardial ischemia Will follow-up cardiology for further management Plan CODE STATUS: She is full code for now Protonix will be sufficient for PUD prophylaxis Heparin 5000 every 12 hourly for DVT prophylaxis. Plan of care and prognosis discussed with daughter , son and at bedside. Attestations 2 Medical Necessity Statement*: She needs continued hospitalization for severe sepsis/septic shock, acute hypoxic respiratory failure on BiPAP , hemodynamically unstable on pressors Levophed and vasopressin, new onset atrial fibrillation on esmolol drip, currently receiving hemodialysis for worsening acute renal failure Time Spent in Patient Care: 45 minutes Procedures Arterial Line Size (Gauge): 20 Coding Level of Care Code Critical Care >/= 30 minutes Diagnoses Acute renal failure N17.9 Septic shock A41.9; R65.21 Acute respiratory failure with hypoxia J96.01 Cerebrovascular accident (CVA) I63.9 Hyperkalemia E87.5 Left lower lobe pneumonia J18.9 Chronic obstructive pulmonary disease, unspecified COPD type J44.9 COPD type: unspecified COPD Acute UTI N39.0 Atrial fibrillation with RVR I48.91 Elevated troponin R79.89 Time Spent (min) 45
--- NOTE | 2023-08-24 15:42 | PC.OT ---
OT EVALUATION ATTEMPTED TWICE; PATIENT RECEIVING DIALYSIS BOTH ATTEMPTS
--- NOTE | 2023-08-24 16:30 | ECG_ITS ---
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 Measurements Intervals [place] Rate: 130 P: 0 [place]: 0 QRS: -19 QRSD: 105 T: 66 QT: 316 QTc: 465 Interpretive Statements ATRIAL FIBRILLATION WITH RAPID VENTRICULAR RESPONSE SEPTAL MYOCARDIAL INFARCTION , OF INDETERMINATE AGE [40+ ms Q WAVE IN V1/V2] Compared to ECG 08/24/2023 13:14:56 Myocardial infarct finding now present Intraventricular conduction delay no longer present ST (T wave) deviation no longer present Electronically Signed On 08-24-2023 21:28:34 CDT by Khanh Buckley M.D. [id number]
--- NOTE | 2023-08-24 16:35 | PC.NURSE ---
provider at beside verbal orders recived and read back to start amio gtt with a 150 bolus per protocol and stop the esmelol gtt
[2023-08-24] MEDS: amiodarone 150 MG/100 ML PREMIX 400 MG IV (16:49)
[2023-08-24] MEDS: heparin, porcine 1,000 unit/mL INJ 10 mL 10000 UNIT INTRACATH (16:50)
[2023-08-24] MEDS: vancomycin 1,750 MG/350 ML PIGGYBACK 233 MG IV (17:02)
--- NOTE | 2023-08-24 17:25 | PC.NURSE ---
HR still 140s, Dr. escamilla gave v.o. to stop esmolol and start amiodorane
--- NOTE | 2023-08-24 18:13 | PC.NURSE ---
Shift summary: HR currently controlled afib with amio per JUL. Levophed titrated per JUL due to BP HCP aware. no c/o chest pain at this time, HCP at bedside multiple times see other notes
[2023-08-24] MEDS: heparin drip 25,000 UNIT/500 ML PREMIX 39.5 UNIT IV (18:31)
--- NOTE | 2023-08-24 19:43 | P.CONIM_ITS ---
Providers/Reason For Consult 2 Consulting Physician/Specialty*: BRYSON Buckley MD/cardiology Reason for Consult*: Patient with chest pain/elevated troponin T/sepsis Requesting Physician: Dr. Stock Attending Physician: Diana Stock MD Primary Care Provider: Shruthi Daniel MD History of Present Illness History of Present Illness Mildred Veliz is a 77 year old female, is admitted to hospital to the emergency room, where she presented with complaints of lethargy/left-sided weakness. She was found to have features of acute CVA, acute renal failure, left lower lobe pneumonia, possible septic shock. She also was found with elevated troponin T, seems to be trending up. Cardiology consult is requested for further cardiac evaluation and recommendations. At the time of my examination, patient is not able to give any detailed history. She may answer yes or no to the questions. Her daughter was at the bedside. Apparently this patient has not been feeling well for the last few weeks. She been treated for UTI and possible upper respiratory tract infection. She was having some generalized weakness and difficulty in moving around. Her left- sided weakness became apparent on the previous night of of the hospital admission. She was evaluated by the [facility] in neurology and was advised to start her on dual antiplatelet drug. This patient has no previous history for any coronary disease, myocardial infarction or congestive heart failure. She has a history of Cdmuv-Qmdpsdneo-Ohaqb syndrome?. But never been evaluated by cardiology. She has a history of hypertension, diastolic heart failure, previous CVA with residual expressive aphasia, COPD and morbid obesity. She had a CT of the chest which revealed extensive bilateral pneumonia with mucous plugging and emphysematous changes. Did not have any significant carotid artery stenosis based on the CTA She is currently on vasopressors for the hypotension. Because of acute renal failure, she is in the process of getting hemodialysis. Review of Systems 2 Narrative: CONSTITUTIONAL: No fever or chills. EYES: No blurring of vision or other visual disturbances lately. ENT: No hoarseness of voice, auditory disturbances or sore throat. CARDIOVASCULAR: As mentioned above RESPIRATORY: No significant cough. GASTROINTESTINAL: No hematemesis or melena. GENITOURINARY: Acute renal failure INTEGUMENTARY: No skin rashes or history of skin cancer. NEURO: Recurrent CVA PSYCHIATRIC: No history of psychosis or major depression. HEMATOLOGIC: No bleeding disorders or significant anemia. ENDOCRINE: No history of polyuria or polydipsia. MUSCULOSKELETAL: No recent joint pain or swelling. ALLERGY/IMMUNOLOGY: As mentioned above. Medications/Allergies Home Medications Medication Instructions Recorded Confirmed Last Taken Type albuterol sulfate 90 mcg/actuation 1 inh inhalation QID PRN Shortness 05/22/20 08/22/23 Unknown History aerosol inhaler (ProAir HFA) Of Breath Or Wheezing carvedilol 6.25 mg tablet 6.25 mg PO BID 05/22/20 08/22/23 08/21/23 History celecoxib 100 mg capsule 100 mg PO BID 05/22/20 08/22/23 08/21/23 History citalopram 10 mg tablet 10 mg PO DAILY 08/22/23 08/22/23 08/21/23 History donepezil 5 mg tablet 5 mg PO BEDTIME 08/22/23 08/22/23 08/21/23 History furosemide 20 mg tablet 20 mg PO DAILY 08/22/23 08/22/23 08/21/23 History tramadol 50 mg tablet 50 mg PO DAILY PRN Pain 08/22/23 08/22/23 Unknown History venlafaxine 150 mg 150 mg PO DAILY 08/22/23 08/22/23 08/21/23 History capsule,extended release 24 hr aspirin 81 mg tablet,delayed 81 mg PO DAILY 30 days #30 tabs 08/25/23 Unknown Rx release atorvastatin 40 mg tablet 40 mg PO BEDTIME 30 days #30 tabs 08/25/23 Unknown Rx ipratropium 0.5 mg-albuterol 3 mg 3 ml inhalation Q6H.RESP 10 days 08/25/23 Unknown Rx (2.5 mg base)/3 mL nebulization #30 mL soln lactulose 20 gram/30 mL oral 10 g (15 mL) PO DAILY PRN 08/25/23 Unknown Rx solution Constipation (see protocol) #15 mL Allergies Allergy/AdvReac Type Severity Reaction Status Date / Time No Known Allergies Allergy Verified 08/22/23 11:03 Current Medications Generic Name Dose Route Start Last Admin Trade Name Freq PRN Reason Stop Dose Admin Albuterol/Ipratropium 3 ml 08/22/23 20:00 08/24/23 13:01 Ipratropium-Albuterol 3 Ml Neb INHALATION 3 ml Q6H.RESP ELENA Administration Aspirin 81 mg 08/23/23 09:00 08/24/23 08:10 Aspirin 81 Mg Ec Tablet PO 81 mg DAILY ELENA Administration Atorvastatin Calcium 40 mg 08/22/23 21:00 08/23/23 20:58 Atorvastatin 40 Mg Tablet PO 40 mg BEDTIME ELENA Administration Budesonide 0.5 mg 08/22/23 20:00 08/24/23 07:40 Budesonide 0.5 Mg/2 Ml Neb INHALATION 0.5 mg BID.RESPIRATORY ELENA Administration Haloperidol Lactate 1 mg 08/22/23 21:27 08/23/23 21:53 Haloperidol Inj 5 Mg/Ml Inj 1 Ml IM 1 mg Q4H PRN Administration AGITATION Heparin Sodium (Porcine) 5,000 unit 08/22/23 14:54 08/24/23 08:45 Heparin 5,000 Unit/Ml Inj 1 Ml SUBCUT Not Given Q12H ELENA norepinephrine 4 mg in 250 mls @ 0 mls/hr 08/22/23 14:00 08/24/23 18:30 Levophed IV 4 mcg/min .Q0M ELENA 15 mls/hr Administration Protocol Per Protocol Piperacillin Sod/Tazobactam 50 mls @ 12.5 mls/hr 08/22/23 17:00 08/24/23 17:00 Sod 3.375 gm/ Sodium Chloride IV 12.5 mls/hr Q12H ELENA Administration Protocol Vancomycin/PEG/NADA/Lysine/Water 1,750 mg in 350 mls @ 233.333 mls/hr 08/22/23 16:00 08/24/23 17:02 Vancocin IV 233 mls/hr Q48H ELENA Administration Vasopressin 40 unit in 100 mls @ 0.075 mls/min 08/22/23 18:00 08/24/23 12:12 Vasostrict IV 0.08 mls/min CONT ELENA Administration Sodium Chloride 500 mls @ 2 mls/hr 08/22/23 18:00 08/24/23 17:07 Sodium Chloride 0.9% IV Not Given .Q24H ELENA Dexmedetomidine/Sodium Chloride 400 mcg in 100 mls @ 0 mls/hr 08/24/23 14:45 08/24/23 18:10 Precedex IV 0.3 mcg/kg/hr .Q0M ELENA 10.58 mls/hr Titration Protocol Per Protocol Amiodarone HCl/Dextrose 360 mg in 200 mls @ 0 mls/hr 08/24/23 16:35 08/24/23 16:49 Nexterone IV 1 mg/min .Q0M ELENA 33.33 mls/hr Administration Protocol Per Protocol Heparin Sodium/Sodium Chloride 25,000 unit in 500 mls @ 0 mls/hr 08/24/23 18:15 08/24/23 18:31 Heparin Drip IV 14 unit/kg/hr .Q0M ELENA 39.5 mls/hr Administration Protocol Per Protocol Methylprednisolone Sodium Succinate 60 mg 08/23/23 00:00 08/24/23 17:01 Methylprednisolone Sod Succ 125 Mg/2 Ml Inj IVP 60 mg Q6H ELENA Administration Morphine Sulfate 2 mg 08/22/23 14:54 08/24/23 06:24 Morphine 4 Mg/Ml Sdv 1 Ml IVP 2 mg Q4H PRN Administration SEVERE PAIN Pantoprazole Sodium 40 mg 08/22/23 14:54 08/24/23 13:51 Pantoprazole 40 Mg Sdv IVP 40 mg Q24H ELENA Administration PFSH Acute 2 PFSH: Medical History Arthritis Morbid obesity with body mass index of 45.0-49.9 in adult Cerebrovascular accident (CVA) History of palpitations DVT of leg (deep venous thrombosis) Surgical History Hx of breast biopsy Social History Smoking and tobacco/nicotine status: former use of tobacco/nicotine Vitals/I&O/Wt Last Vital Signs Temp 97.5 F L 08/24/23 03:55 Pulse 110 H 08/24/23 18:00 Resp 19 H 08/24/23 18:00 BP 95/59 08/24/23 18:00 Pulse Ox 97 08/24/23 18:00 O2 Del Method BiPAP 08/24/23 13:02 O2 Flow Rate 5 08/24/23 00:00 FiO2 50 08/24/23 15:07 08/24/23 08/24/23 08/24/23 06:59 14:59 22:59 Intake Total 620.225 / 1662.545 246.725 / 246.725 370.873 / 617.598 Output Total 50 / 55 Balance 570.225 / 1607.545 246.725 / 246.725 370.873 / 617.598 Weight last 48 hrs Weight 311 lb Weight 310 lb 13.628 oz Weight 310 lb 3.2 oz Weight 304 lb 4.443 oz Physical Exam 2 Narrative: GENERAL: The patient is alert and oriented times two. Not in any acute distress. Currently she is on a BiPAP HEENT: No significant pallor, icterus or lymphadenopathy.Oral cavity: There are no mucous membrane lesions. NECK: Trachea appears to be central. No masses noted. No JVD or thyromegaly appreciated. RESPIRATORY: Chest is symmetrical. No intercostals muscle retraction or any accessory muscle activation. There is no chest wall tenderness. Breath sounds are heard bilaterally. No rales or rhonchi heard. No evidence of any consolidation. BREASTS: Deferred. HEART: The heart sounds are normal. No S3 or S4. Short systolic murmur in the lower sternal border. No diastolic murmurs.. No pericardial rub ABDOMEN: No vessel pulsations or distention. No tenderness. No organomegaly appreciated. Bowel sounds are normally heard. : Deferred. RECTAL: Deferred. LYMPHATIC: No lymphadenopathy noted in the neck. EXTREMITIES: No edema or cyanosis. No clubbing. MUSCULOSKELETAL: No acute joint deformities or swelling SKIN: There are no significant rashes or ecchymosis NEUROPSYCHIATRIC: Patient seems to be oriented to place and person. She has expressive aphasia. Grade 3 motor power for the left upper and lower extremity. Urinary Catheter Management: Whitten: Cath Placed During This Visit: yes Reason for Continuing Indwelling Catheter: Accurate Measurement of Urinary Output in Critically Ill Patients Urinary Catheter Date of Insertion: 08/22/23 Urinary Catheter Time of Insertion: 16:00 Data 08/25/23 04:57 08/25/23 02:10 Other Labs: Echocardiogram-reported as Technically difficult study Possibly normal LV size with ejection fraction of around 55-60% Mitral annular calcification Mild mitral and tricuspid regurgitation EKG showed Sinus tachycardia with possible left atrial enlargement. Left axis deviation. Low voltage complex in the precordial leads CT of the head and neck 1. CTA neck shows bilateral carotid atherosclerosis without evidence of hemodynamically significant stenosis. 2. Both vertebral arteries are patent without evidence of flow-limiting stenosis. 3. Mass at the base of the neck on the right, posterior to the right common carotid artery, has increased in size since 2011, apparently at a slow growth rate given the long interval. Etiology is undetermined. It could represent parathyroid tumor, enlarged lymph node, neurogenic tumor, etc.. 4. Chronic cervical spondylosis. A&P Assessment and plan (1) Elevated troponin: The elevated troponin T is a history of a non-ST elevation myocardial infarction. The EKG did not reveal any acute ischemic changes. The echocardiogram was a suboptimal quality. Overall ejection fraction patient within normal limits. In view of the markedly elevated troponin T, it may be appropriate to start her on a heparin, if okay with the neurology. (2) Acute renal failure: Patient is in the process of getting hemodialysis. Management as per the nephrology service. Qualifiers: Acute renal failure type: with other specified pathological lesion Qualified Code(s): N17.8 - Other acute kidney failure (3) Septic shock: She is on multiple antibiotics. (4) Acute respiratory failure with hypoxia: Patient is currently on BiPAP. May be treated with IV Lasix on a as needed basis. (5) Hyperkalemia: Management as above (6) Acute CVA (cerebrovascular accident): Management as per the neurology/primary Plan The patient may be treated with the heparin and aspirin, if okay with the neurology service. In view of the acute renal failure it may be appropriate to hold off on the Plavix. Patient may benefit from a cardiac catheterization, which will be decided once her oral status is stable. Thank you for the opportunity to evaluate this patient and make these recommendations Consult Attestations 2 Medical Necessity Statement: Patient requires continued hospital stay for close monitoring and further management Procedures Arterial Line Size (Gauge): 20 Coding Level of Care Code 48066 Diagnoses Elevated troponin R79.89 Acute renal failure with other specified pathological lesion in kidney N17.8 Acute renal failure type: with other specified pathological lesion Septic shock A41.9; R65.21 Acute respiratory failure with hypoxia J96.01 Hyperkalemia E87.5 Acute CVA (cerebrovascular accident) I63.9
[2023-08-24] MEDS: atorvastatin 40 mg Tablet PO (20:18)
--- NOTE | 2023-08-24 20:46 | CTR_ITS ---
PROCEDURE INFORMATION: Exam: CT Head Without Contrast Exam date and time: 08/24/2023 10:04 PM Age: 77 years old Clinical indication: Other: Eval for hemorrhagic conversion; Recent stroke, patient starting on therapeutic heparin; Eval for evidence TECHNIQUE: Imaging protocol: Computed tomography of the head without contrast. Radiation optimization: All CT scans at this facility use at least one of these dose optimization techniques: automated exposure control; mA and/or kV adjustment per patient size (includes targeted exams where dose is matched to clinical indication); or iterative reconstruction. COMPARISON: CT angio headneck* [id number] 08/22/2023 10:48 AM RADIATION DOSE METRICS: Total DLP (mGy-cm): 1393.67 FINDINGS: Brain: Old left cerebellar infarct with encephalomalacia. Redemonstrated the tiny right precentral gyrus cortical infarct. No intracranial hemorrhage or intracranial mass. Cerebral ventricles: No ventriculomegaly. Paranasal sinuses: Visualized sinuses are unremarkable. No fluid levels. Mastoid air cells: Visualized mastoid air cells are well aerated. Bones/joints: Unremarkable. No acute fracture. Soft tissues: Unremarkable. CT/CT head wo con* [id number] IMPRESSION: Right precentral gyrus cortical infarct with no hemorrhagic transformation.
[2023-08-24] MEDS: dexmedeTOMIDine 0.9 % NaCL 400 MCG/100 ML PREMIX 10.5800000000000001 MCG IV (21:29)
[2023-08-25] VITALS (65 sets, daily range): BP systolic 108–160; BP diastolic 68–104; PULSE 74–120; RESP 13–21; TEMP 36.3–36.7; O2SAT 90–100
--- NOTE | 2023-08-25 01:29 | PC.NURSE ---
-Patient complaining of shortness of breath. Lungs previously coarse, now with crackles t/o. O2 sat 96-98% with bipap. Physician notified of condition change, no new orders, will continue to monitor.
--- NOTE | 2023-08-25 02:07 | PC.HD ---
New right femoral cath oozing bloody drainage with pooling and clot noted and running down medial and lateral groin, small hematoma noted but surrounding tissue soft. Rolled up 4x4s placed with 5# sandbag to site throughout HD. Oozing slowed considerably with sandbag on but still oozing some at end of tx. Dressed with TRICIA, folded gauze, and Covaderm dressing. Appx 1 hour into treatment monitor showed HR 140s-150s and BP 80s systolic. UF off but continued HD per Dr Craven's instructions while ICU staff did EKG, contacted hospitalist and measurement psychologist, and gave Digoxin IV and started esmolol gtt (notified that this is removed by dialysis) and levophed gtt. Was able to turn UF back on for last 40 minutes of treatment, BP 100s/70s with Levophed @20mcg/min, P 110s-140s at end of treatment.
[2023-08-25 02:33] LABS: Blood Urea Nitrogen 47 mg/dL (8-23); Calcium 6.4 mg/dL (8.5-10.5); Carbon Dioxide 23 mmol/L (22-29); Chloride 92 mmol/L (98-107); Creatinine Clr Calc Pharmacy 16.5215; Glucose 144 mg/dL (65-115); Osmolality Calculated 295 mOsm/kg (285-295); Sodium 135 mmol/L (136-145)
[2023-08-25 02:36] LABS: Anion Gap 24.7 (5-19); Potassium 4.7 mmol/L (3.5-5.1)
[2023-08-25 02:44] LABS: Partial Thromboplastin Time > 250.0 SECONDS (23.9-36.7)
[2023-08-25 02:51] LABS: Alanine Aminotransferase 45 U/L (0-33); Albumin Level 2.7 g/dL (3.5-5.2); Alkaline Phosphatase 182 U/L (35-105); Globulin 3.3 g/dL (1.3-4.6); Total Bilirubin 0.5 mg/dL (0.15-1.2)
[2023-08-25 02:55] LABS: Aspartate Amino Transferase 215 U/L (0-32)
[2023-08-25] MEDS: ipratropium-albuterol 3 mL Neb INHALATION ×2 (03:02→07:35)
[2023-08-25] MEDS: dexmedeTOMIDine 0.9 % NaCL 400 MCG/100 ML PREMIX 14.0999999999999996 MCG IV (04:53)
[2023-08-25] MEDS: piperacillin-tazobactam 3.375 GM in sodium chloride 0.9% (plus) 50 ML IV (04:54)
[2023-08-25] MEDS: methylPREDNISolone sod succ 125 mg/2 mL INJ 60 MG IVP ×2 (04:57→12:16)
--- NOTE | 2023-08-25 05:00 | XRR_ITS ---
PROCEDURE INFORMATION: Exam: XR Chest Exam date and time: 08/25/2023 5:02 AM Age: 77 years old Clinical indication: Other: Pneumonia; Additional info: Pneumonia, at 5am tomorrow TECHNIQUE: Imaging protocol: Radiologic exam of the chest. Views: 1 view. COMPARISON: CR (CHEST, ) 08/22/2023 9:08 PM FINDINGS: Tubes, catheters and devices: Stable central line. Lungs: Persistent CHF with vascular engorgement, interstitial and alveolar edema, and pleural effusions, left greater than right. Pleural spaces: See Lungs finding. Heart/Mediastinum: Unremarkable. No cardiomegaly. Bones/joints: Unremarkable. XR/XR chest 1V portable [id number] IMPRESSION: Persistent CHF.
[2023-08-25 05:11] LABS: Basophils % 0.2 %; Hematocrit 32.6 % (36-47); Lymphocytes # 0.7 10^3/uL (0.8-4.8); Lymphocytes % 4.8 %; Mean Corpuscular HGB Conc 32.8 g/dL (30-55); Mean Corpuscular Hemoglobin 30.1 pg (27-33); Mean Corpuscular Volume 91.6 fl (85-98); Mean Platelet Volume 9.8 fL (7.4-10.4); Monocytes % 7.2 %; Neutrophils % 85.1 %; Nucleated Red Blood Cells % 0 %; Platelet Count 173 10^3/cmm (157-399); Red Blood Count 3.56 10^6/uL (3.85-5.65); White Blood Count 14.22 10^3/uL (3.29-11.43)
[2023-08-25 05:41] LABS: Partial Thromboplastin Time > 250.0 SECONDS (23.9-36.7)
--- NOTE | 2023-08-25 05:47 | PC.NURSE ---
APTT levels came back greater than 250 even after after stopping the heparin drip for [address] Cárdenas was notified and he ordered for the heparin drip to remain paused and to re draw PTT levels again in 3 hours.
[2023-08-25] MEDS: vasopressin 40 UNIT/100 ML PREMIX 0.0800000000000000017 UNIT IV (06:21)
[2023-08-25] MEDS: budesonide 0.5 mg/2 mL Neb INHALATION (07:34)
--- NOTE | 2023-08-25 09:50 | P.PN_ITS ---
Subjective 2 Subjective: off pressors on 5l NC Medications: Reviewed: Yes Vitals/I&O/Wt Last Vital Signs Temp 97.6 F 08/25/23 06:00 Pulse 75 08/25/23 07:40 Resp 17 08/25/23 07:20 BP 123/79 08/25/23 06:15 Pulse Ox 99 08/25/23 07:40 O2 Del Method BiPAP 08/25/23 07:20 O2 Flow Rate 5 08/24/23 00:00 FiO2 50 08/25/23 07:40 08/24/23 08/25/23 08/25/23 22:59 06:59 14:59 Intake Total 1135.963 / 6963.476 3262.095 / 2428.783 Output Total 1545 / 1545 0 / 1545 Balance -409.037 / -111.742 8641.095 / 883.783 Weight last 48 hrs Weight 144.639 kg Weight 142.5 kg Weight 141.067 kg Weight 141 kg Weight 140.704 kg Physical Exam 2 Narrative: awake , alert HEENT S1S2 RRR per report Lungs + crackles per report + edema Urinary Catheter Management: Whitten: Cath Placed During This Visit: yes Reason for Continuing Indwelling Catheter: Accurate Measurement of Urinary Output in Critically Ill Patients Urinary Catheter Date of Insertion: 08/22/23 Urinary Catheter Time of Insertion: 16:00 Data 08/25/23 04:57 08/25/23 02:10 A&P Assessment and plan (1) Acute renal failure: 1. Acute kidney injury: Baseline creatinine normal couple of weeks ago. Now has an ALBINO with a creatinine in the 5 range, oliguric, patient also is hyperkalemic and has volume overload. -- Renal fxn worse , persistently hyperkalemia , - S/P temporary hD catheter placement and s/p HD yesterday , hold off HD today , order IV albumin -Patient's daughter at bedside who agrees to proceed with dialysis if indicated. 2. Hyperkalemia:ordered med management , s/p HD 3. Sepsis, liikely from pneumonia and UTI, off pressors 4. Acute stroke, 5. Metabolic acidosis: Mild, monitor Patient evaluated using audiovisual cart. Time spent 20 minutes. Qualifiers: Acute renal failure type: with other specified pathological lesion Qualified Code(s): N17.8 - Other acute kidney failure Attestations 2 Medical Necessity Statement*: per [facility] Procedures Arterial Line Size (Gauge): 20 Coding Level of Care Code Acute Code for Chg Fwd Diagnoses Acute renal failure with other specified pathological lesion in kidney N17.8 Acute renal failure type: with other specified pathological lesion
[2023-08-25 10:07] LABS: Partial Thromboplastin Time 208.6 SECONDS (23.9-36.7)
--- NOTE | 2023-08-25 10:58 | PC.NURSE ---
Dr. Rosales gave v.o. to change code status to comfort care after patient expressed desire to go home on hospice and stop hospital care
[2023-08-25 11:48] LABS: Glucose Point of Care 136 mg/dL (70-110)
--- NOTE | 2023-08-25 12:05 | P.PN_ITS ---
Subjective 2 Subjective: Patient seen and examined. Not reporting any pain at catheter insertion site. There was a small amount of bleeding overnight at the catheter site but hemostasis currently noted and sandbag over catheter. Only 1000 cc removed with dialysis due to hypotension Vitals/I&O/Wt Last Vital Signs Temp 97.6 F 08/25/23 06:00 Pulse 83 08/25/23 12:00 Resp 17 08/25/23 12:00 BP 115/77 08/25/23 11:45 Pulse Ox 92 08/25/23 12:00 O2 Del Method BiPAP 08/25/23 07:20 O2 Flow Rate 5 08/24/23 00:00 FiO2 50 08/25/23 07:40 08/24/23 08/25/23 08/25/23 22:59 06:59 14:59 Intake Total 1135.963 / 0757.415 7260.095 / 2428.783 Output Total 1545 / 1545 0 / 1545 Balance -409.037 / -362.511 6531.095 / 883.783 Weight last 48 hrs Weight 318 lb 13.998 oz Weight 314 lb 2.539 oz Weight 311 lb Weight 310 lb 13.628 oz Physical Exam 2 Narrative: General: No acute distress, awake alert and oriented only to self Skin: Right femoral vein catheter in place with hemostasis no erythema or exudate Urinary Catheter Management: Whitten: Cath Placed During This Visit: yes Reason for Continuing Indwelling Catheter: Accurate Measurement of Urinary Output in Critically Ill Patients Urinary Catheter Date of Insertion: 08/22/23 Urinary Catheter Time of Insertion: 16:00 Data 08/25/23 04:57 08/25/23 02:10 A&P Assessment and plan (1) Acute renal failure: Qualifiers: Acute renal failure type: with other specified pathological lesion Qualified Code(s): N17.8 - Other acute kidney failure (2) Hyperkalemia: Plan Status post temporary hemodialysis catheter placed in the right femoral vein Available for permacath placement if requested Medical management per hospitalist Attestations 2 Medical Necessity Statement*: Per primary Procedures Arterial Line Size (Gauge): 20 Coding Level of Care Code 73406 Diagnoses Acute renal failure with other specified pathological lesion in kidney N17.8 Acute renal failure type: with other specified pathological lesion Hyperkalemia E87.5
--- NOTE | 2023-08-25 12:42 | P.DS_ITS ---
Discharge Providers Date of Admission: 08/22/23 13:54 Date of Discharge: August 25, 2023 Attending Provider at Admission: Alberto Nevarez MD Attending Provider at Discharge: Diana Stock MD Consults: Cardiology consult Nephrology consult Neurology consult Primary Care Provider: Shruthi Daniel MD Diagnoses at Discharge Discharge Diagnosis (1) Acute renal failure: Status: Acute Qualifiers: Acute renal failure type: with other specified pathological lesion Qualified Code(s): N17.8 - Other acute kidney failure (2) Hyperkalemia: Status: Acute Reason for Visit Reason for Visit: sob, left arm weakness Brief History: Mildred Veliz is a 77 year old female with past medical history of hypertension, diastolic heart failure, stroke in 2016, DVT, morbid obesity, COPD who has been having occasional episodes of confusion for last 1 month for which she was recently diagnosed with a UTI and was prescribed nitrofurantoin by her PCP which was not yet started presents to the ER today because of more confusion and weakness today morning. In the ER she had a CT head which showed acute right frontal cortical stroke. Hospital service was consulted for admission. At that time it was noted that patient's blood pressures were running in 70s s ystolics with a creatinine of 5.2. I had asked for a CT abdomen pelvis along with a sepsis bolus and possibly needing Levophed drip. Neurology consult was also requested. After 2 L of fluid bolus patient showed symptoms of fluid overload hence fluid bolus was aborted and she was started on a Levophed drip through the right IJ. I am told for neurology Dr. Cheema was consulted from [facility] who recommended patient to have dual antiplatelet therapy and admission for stroke workup. They deemed patient to be outside the window for TNKase When seen in the ICU with family at bedside she is currently on Levophed of 16, received 2-1/2 L of fluid bolus, heart rate of 90 bpm, awake and alert, saturating 98% on 5 L with Levophed running at 17. Hospital Course Hospital Course (1) Acute renal failure: 1. Acute kidney failure: Likely secondary to septic shock, she is receiving hemodialysis today. Follow-up nephrology for further plan Follow-up labs in a.m. (2) Septic shock: Continue pressors norepinephrine and vasopressin to keep a MAP of 65-[address] earlier today for continuous blood pressure recording Blood culture, urine culture, MRSA swab, procalcitonin, urine Legionella, bacterial antigen, sputum culture still pending Continue IV vancomycin and Zosyn renal dosing for now (3) Acute respiratory failure with hypoxia: Continue Pulmicort twice daily, DuoNebs every 6 hour. Solu-Medrol 60 mg every 4 hours. Continue BiPAP for now (4) Cerebrovascular accident (CVA): Speech therapy, physical therapy, Occupational Therapy. N.p.o. for now, since she is on BiPAP Aspirin 81 mg daily, atorvastatin 40 mg daily for now. (5) Hyperkalemia: Secondary to acute renal failure (6) Left lower lobe pneumonia: (7) COPD (chronic obstructive pulmonary disease): Qualifiers: COPD type: unspecified COPD Qualified Code(s): J44.9 - Chronic obstructive pulmonary disease, unspecified (8) Acute UTI: Follow-up urine culture. Next antibiotics above will cover for UTI as well. (9) Atrial fibrillation with RVR: New onset atrial fibrillation with RVR at 1 30-1 40. She received 2 doses of IV digoxin and was Patient started on IV esmolol drip as per cardiology recommendations but she was still in A-fib with RVR at 140s, hence switched to IV amiodarone drip. She is also started on IV heparin drip for anticoagulation Plan for cardioversion if she remains persistently in A-fib with RVR (10) Elevated troponin: Secondary to septic shock and and evidence of myocardial ischemia Will follow-up cardiology for further management Plan In view of severe septic shock leading to renal failure acute myocardial ischemia acute hypoxic respiratory failure ,she was started on pressors, BiPAP and had one-time hemodialysis done with temporary dialysis catheter yesterday. Her parameters are improving acute renal failure resolving, leukocytosis improving, hyperkalemia improved, she is off BiPAP and pressors and on 5 L high flow oxygen. She is alert awake oriented x 3. Family is at bedside. Although her medical condition is improving , patient expressed that she wants to go on hospice, hence plan is to discharge her to subacute nursing facility with hospice. Patient's wishes and plan discussed with family, daughter Sita at bedside. She understands and agrees with the patient's wishes. Physical Exam Narrative: She is alert awake oriented x 3, in moderate respiratory distress Chest bilateral coarse rhonchi and crackles present Cardiovascular normal heart sounds no murmurs Abdomen soft nontender nondistended normal bowel sounds Extremities 2+ bilateral pitting edema present, jerky involuntary movements of bilateral upper extremities present Urinary Catheter Management: Whitten: Cath Placed During This Visit: yes Reason for Continuing Indwelling Catheter: Accurate Measurement of Urinary Output in Critically Ill Patients Urinary Catheter Date of Insertion: 08/22/23 Urinary Catheter Time of Insertion: 16:00 Discharge Data Studies Completed and Pending Completed Studies During Hospitalization Category Date Time Status CT abdomen pelvis wo con [id number] Stat Cat Scan 08/22/23 12:[address] chest wo con [id number] Urgent Cat Scan 08/22/23 14:[address] head wo con* [id number] Routine Cat Scan 08/24/23 20:[address] head wo con* [id number] Stat Cat Scan 08/22/23 10:24 Completed CTA head neck [CT angio headneck* [id number]] Stat Cat Scan 08/22/23 10:44 Completed XR chest 1V portable [id number] Routine Exams 08/25/23 05:00 Completed XR chest 1V portable [id number] Stat Exams 08/22/23 10:22 Completed XR chest 1V portable [id number] Stat Exams 08/22/23 14:05 Completed XR chest 1V portable [id number] Stat Exams 08/22/23 14:05 Completed CV. echo complete* [id number] Routine Ultrasound 08/22/23 14:19 Completed Pending at discharge Category Date Time Status Bacterial Antigen Stat Lab 08/22/23 14:17 Ordered Blood Culture Stat Lab 08/22/23 11:11 Results Drug Screen, Urine Stat Lab 08/22/23 14:17 Ordered Legionella Antigen STAT Stat Lab 08/22/23 14:17 Ordered Platelet Count Q2D Lab 08/26/23 04:00 Ordered Platelet Count Q2D Lab 08/28/23 04:00 Ordered Sputum Culture Stat Lab 08/24/23 01:23 Results Urine Creatinine Routine Lab 08/22/23 14:17 Ordered Urine Eosinophils Routine Lab 08/22/23 14:19 Ordered Urine Lytes [Urine Random Lytes] Stat Lab 08/22/23 14:17 Ordered Radiology Impressions Head/Neck CTA 08/22/23 10:44 IMPRESSION: CTA head demonstrates no intracranial large vessel occlusion or flow-limiting stenosis. IMPRESSION: 1. CTA neck shows bilateral carotid atherosclerosis without evidence of hemodynamically significant stenosis. 2. Both vertebral arteries are patent without evidence of flow-limiting stenosis. 3. Mass at the base of the neck on the right, posterior to the right common carotid artery, has increased in size since 2010, apparently at a slow growth rate given the long interval. Etiology is undetermined. It could represent parathyroid tumor, enlarged lymph node, neurogenic tumor, etc.. 4. Chronic cervical spondylosis. REFERENCES: NASCET CRITERIA. The degree of stenosis in the cervical segment of the internal carotid artery is based on NASCET criteria. Normal is no stenosis. Mild is less than 50% stenosis. Moderate is 50-69% stenosis. Severe is 70% to 99% stenosis. Total occlusion is no detectable patent lumen. Abdomen/Pelvis CT 08/22/23 12:15 IMPRESSION: 1. Pneumonia most severely affecting left lower lobe. 2. Distended gallbladder, nonspecific. No gallbladder wall thickening or biliary duct dilation is seen. 3. No other evidence of acute abnormality. Multiple incidental and/or nonacute findings as reported above. Chest CT 08/22/23 14:19 IMPRESSION: 1. Extensive bilateral pneumonia with mucous plugging 2. Emphysematous changes COMMENTS: The presence of pulmonary emphysema on CT is an independent risk factor for lung cancer. In the absence of a history or active diagnosis of lung cancer, it is recommended that this patient with emphysema be evaluated for enrollment in a low dose CT lung cancer screening program. Head CT 08/24/23 20:46 IMPRESSION: Right precentral gyrus cortical infarct with no hemorrhagic transformation. Chest X-Ray 08/25/23 05:00 IMPRESSION: Persistent CHF. Laboratory Results WBC 14.22 10^3/uL (3.29-11.43) H 08/25/23 04:57 RBC 3.56 10^6/uL (3.85-5.65) L 08/25/23 04:57 Hgb 10.70 g/dL (11.27-16.99) L 08/25/23 04:57 Hct 32.6 % (36-47) L 08/25/23 04:57 MCV 91.6 fl (85-98) 08/25/23 04:57 MCH 30.1 pg (27-33) 08/25/23 04:57 MCHC 32.8 g/dL (30-55) 08/25/23 04:57 RDW 14.0 % (12.1-15.1) 08/25/23 04:57 Plt Count 173 10^3/cmm (157-399) D 08/25/23 04:57 MPV 9.8 fL (7.4-10.4) 08/25/23 04:57 Neut % (Auto) 85.1 % 08/25/23 04:57 Lymph % (Auto) 4.8 % 08/25/23 04:57 [place] % (Auto) 7.2 % 08/25/23 04:57 Eos % (Auto) 0.0 % 08/25/23 04:57 Baso % (Auto) 0.2 % 08/25/23 04:57 Neut # (Auto) 12.10 10^3/uL (1.8-7.7) H 08/25/23 04:57 Lymph # (Auto) 0.7 10^3/uL (0.8-4.8) L 08/25/23 04:57 [place] # (Auto) 1.0 10^3/uL (0.2-0.9) H 08/25/23 04:57 Eos # (Auto) 0.0 10^3/uL (0.0-0.8) 08/25/23 04:57 Baso # (Auto) 0.0 10^3/uL (0.0-0.1) 08/25/23 04:57 Nucleated RBC % (auto) 0 % 08/25/23 04:57 Nucleated RBCs # 0.0 /100WBC 08/25/23 04:57 PT 14.80 SECONDS (12.1-14.9) 08/22/23 10:30 INR 1.12 (0.8-1.2) 08/22/23 10:30 APTT 208.6 SECONDS (23.9-36.7) H* 08/25/23 08:42 Specimen Type Arterial 08/22/23 10:29 Sample Site Radial, right 08/22/23 10:29 ABG pH 7.27 (7.35-7.45) L 08/22/23 10:29 ABG pCO2 45.2 mmHg (35-45) H 08/22/23 10:29 ABG pO2 81.4 mmHg (80.0-100.0) 08/22/23 10:29 ABG PO2/FiO2 Ratio 0 08/22/23 10:29 ABG HCO3 20.7 mmol/L (22-26) L 08/22/23 10: ABG Base Excess -6.2 mmol/L (-2.0-2.0) L 08/22/23 10:29 Gilmer Test Pos 08/22/23 10:29 Hematocrit 41.9 % (37-47) 08/22/23 10: O2 Delivery Device Nc 08/22/23 10:29 O2 Liters/Min 4.5 % 08/22/23 10: FiO2 38.0 % 08/22/23 10: Environmental Advisor ID glc 08/22/23 10:29 Sodium 135 mmol/L (136-145) L 08/25/23 02:10 Potassium 4.7 mmol/L (3.5-5.1) 08/25/23 02:10 Chloride 92 mmol/L (98-107) L 08/25/23 02:10 Carbon Dioxide 23 mmol/L (22-29) 08/25/23 02:10 Anion Gap 24.7 (5-19) H 08/25/23 02:10 BUN 47 mg/dL (8-23) H 08/25/23 02:10 Creatinine 4.3 mg/dL (0.5-0.9) H 08/25/23 02:10 GFR Calculation Not Reportable 08/25/23 02:10 Glucose 144 mg/dL (65-115) H 08/25/23 02:10 POC Glucose 136 mg/dL (70-110) H 08/25/23 08:58 Estimat Average Glucose 100 08/23/23 02:50 Hemoglobin A1c 5.1 % (4.0-6.0) 08/23/23 02:50 Calculated Osmolality 295 mOsm/kg (285-295) 08/25/23 02:10 Lactic Acid 0.8 mmol/L (0.5-2.2) 08/22/23 15:28 Lactate 1.0 mmol/L (0.5-2.2) 08/25/23 04:57 Calcium 6.4 mg/dL (8.5-10.5) L 08/25/23 02:10 Ionized Calcium Swapnil 0.7 mmol/L (1.1-1.4) L* 08/24/23 03:50 Phosphorus 8.9 mg/dL (2.5-4.5) H* 08/24/23 03:50 Magnesium 2.5 mg/dL (1.7-2.3) H 08/24/23 03:50 Iron 12 ug/dL (37-145) L 08/22/23 15:28 TIBC 152 mcg/dl 08/22/23 15:28 % Saturation 7.8 % (20-50) L 08/22/23 15:28 Unsat Iron Binding 140 ug/dL (112-347) 08/22/23 15:28 Total Bilirubin 0.5 mg/dL (0.15-1.2) 08/25/23 02:10 Direct Bilirubin 0.30 mg/dL (0.00-0.30) 08/25/23 02:10 AST 215 U/L (0-32) H 08/25/23 02:10 ALT 45 U/L (0-33) H 08/25/23 02:10 Alkaline Phosphatase 182 U/L (35-105) H 08/25/23 02:10 Troponin T Baseline 1181 ng/L (0-10) H* 08/24/23 06:44 Troponin T 120 Minute 1275 ng/L (0-10) H 08/24/23 08:40 Delta Troponin T 94 ABS# (0-10) H* 08/24/23 08:40 Troponin T Hi Sens 6Hr 1587 ng/L (0-10) H 08/24/23 12:35 Troponin T Hi Sens 6Hr Delta 406 ng/L (0-12) H* 08/24/23 12:35 NT-Pro-B Natriuret Pep 3266 pg/mL (0-450) H 08/22/23 10:30 Total Protein 6.0 g/dL (6.6-8.7) L 08/25/23 02:10 Albumin 2.7 g/dL (3.5-5.2) L 08/25/23 02:10 Globulin 3.3 g/dL (1.3-4.6) 08/25/23 02:10 Triglycerides 91 mg/dL (0-150) 08/23/23 02:50 Cholesterol 80 mg/dL (0-200) 08/23/23 02:50 LDL Cholesterol, Calc 38 mg/dL (50-129) L 08/23/23 02:50 HDL Cholesterol 24 mg/dL (60-100) L 08/23/23 02:50 LDL/HDL Ratio 1.58 RATIO (0.00-3.22) 08/23/23 02:50 Cholesterol/HDL Ratio 3.33 mg/dL (0.0-4.40) 08/23/23 02:50 Vitamin B12 1036 pg/mL (232-1245) 08/22/23 10:30 Folate 5.5 ng/mL (4.8-37.3) 08/23/23 02:50 Procalcitonin 14.08 ng/mL (0-0.5) H 08/23/23 02:50 TSH 3.03 uIU/mL (0.27-4.20) 08/22/23 15:28 Urine Color Yellow (Yellow) 08/22/23 11:26 Urine Appearance Cloudy (CLEAR) A 08/22/23 11:26 Urine pH 8 (5-7) H 08/22/23 11:26 Ur Specific Ione 1.010 (1.005-1.030) 08/22/23 11:26 Urine Protein 3+ (Negative) H 08/22/23 11:26 Urine Glucose (UA) Norm (Normal) 08/22/23 11:26 Urine Ketones Negative (Negative) 08/22/23 11:26 Urine Blood 2+ (Negative) H 08/22/23 11:26 Urine Nitrate Negative (Negative) 08/22/23 11:26 Urine Bilirubin Neg (Negative) 08/22/23 11:26 Prot Sulfosalicylic Acd Positive (Negative) 08/22/23 11:26 Urine Urobilinogen Norm mg/dL (Negative) 08/22/23 11:26 Ur Leukocyte Esterase 2+ (Negative) H 08/22/23 11:26 Urine RBC 5-10 /hpf (0-2) H 08/22/23 11:26 Urine WBC Too numerous to cnt /hpf (0-5) H 08/22/23 11:26 Ur Squamous Epith Cells Rare /hpf (0-5) 08/22/23 11:26 Amorphous Sediment Not Reportable 08/22/23 11:26 Urine Bacteria 4+ /hpf (NONE) H 08/22/23 11:26 Hep Bs Antigen Non-reactive (Nonreactive) 08/24/23 03:50 Hep Bs Antibody < 3.5 (11.5-1000) L 08/24/23 03:50 MRSA (PCR) Not detected (NOT DETECTED) 08/22/23 20:05 Vitals Last Vital Signs Temp 97.6 F 08/25/23 06:00 Pulse 83 08/25/23 12:00 Resp 17 08/25/23 12:00 BP 115/77 08/25/23 11:45 Pulse Ox 92 08/25/23 12:00 O2 Del Method BiPAP 08/25/23 07:20 O2 Flow Rate 5 08/24/23 00:00 FiO2 50 08/25/23 07:40 Discharge Plan Discharge Patient Disposition: Home Condition: Stable Prescriptions: New aspirin 81 mg Tablet,Delayed Release (Dr/Ec) 81 mg PO DAILY 30 Days Qty: 30 0RF atorvastatin 40 mg Tablet 40 mg PO BEDTIME 30 Days Qty: 30 0RF ipratropium-albuterol 0.5 mg-3 mg(2.5 mg base)/3 mL Solution For Nebulization 3 ml inhalation Q6H.RESP 10 Days Qty: 30 0RF lactulose 20 gram/30 mL Solution 10 g PO DAILY PRN (Reason: Constipation (see protocol)) Qty: 15 0RF Continued carvedilol 6.25 mg tablet 6.25 mg PO BID albuterol sulfate [ProAir HFA] 90 mcg/actuation Hfa Aerosol Inhaler 1 inh INHALATION QID PRN (Reason: Shortness Of Breath Or Wheezing) celecoxib 100 mg capsule 100 mg PO BID donepezil 5 mg tablet 5 mg PO BEDTIME citalopram 10 mg tablet 10 mg PO DAILY venlafaxine 150 mg capsule,extended release 24hr 150 mg PO DAILY tramadol 50 mg tablet 50 mg PO DAILY PRN (Reason: Pain) furosemide 20 mg tablet 20 mg PO DAILY Discontinued nitrofurantoin monohyd/m-cryst 100 mg capsule 100 mg PO BID potassium chloride 8 mEq tablet extended release 8 meq PO DAILY Discharge Orders: Discharge Order (Routine); Ordered 08/25/23 Ordered By: Diana Stock Referrals: Shruthi Daniel MD [Primary Care Provider] - Discharge Diet: Advance as tolerated Discharge Activity: As per PT/OT instructions Patient Instructions: Altered Mental Status (ED), Opioid Safety Discharge Attestations Time Spent in Discharge Care*: greater than 30 min Quality Metrics Clinical Quality Measures [ No reported AMI, CVA or VTE this stay] Coding Level of Care Code Acute Code for Chg Fwd Diagnoses Acute renal failure with other specified pathological lesion in kidney N17.8 Acute renal failure type: with other specified pathological lesion Hyperkalemia E87.5 Time Spent (min) 40
--- NOTE | 2023-08-25 14:11 | P.PN_ITS ---
Subjective 2 Subjective: The patient went into atrial fibrillation with rapid ventricular rate yesterday. She was started on IV amiodarone. The rate is getting under control. Denies any chest pain. Patient is on vasopressin. She had the hemodialysis yesterday. Medications: Medication Review Details: Current Medications Acetaminophen (Acetaminophen 325 Mg Tablet) 650 mg PO Q6H PRN PRN Reason: Mild/Mod Pain Or Temp >/= 101 Al Hydrox/Mg Hydrox/Simethicone (Inmj-Zxo-Wezuyptco-Fany 30 Ml Udc) 15 ml PO Q6H PRN PRN Reason: INDIGESTION Albuterol/Ipratropium (Ipratropium-Albuterol 3 Ml Neb) 3 ml INHALATION Q6H.RESP ELENA Last Admin: 08/25/23 07:35 Dose: 3 ml Aspirin (Aspirin 81 Mg Ec Tablet) 81 mg PO DAILY ELENA Last Admin: 08/25/23 09:13 Dose: Not Given Atorvastatin Calcium (Atorvastatin 40 Mg Tablet) 40 mg PO BEDTIME ELENA Last Admin: 08/24/23 20:18 Dose: 40 mg Bisacodyl (Bisacodyl 5 Mg Tablet) 10 mg PO DAILY PRN; Protocol PRN Reason: Constipation (see protocol) Budesonide (Budesonide 0.5 Mg/2 Ml Neb) 0.5 mg INHALATION BID.RESPIRATORY ELENA Last Admin: 08/25/23 07:34 Dose: 0.5 mg Haloperidol Lactate (Haloperidol Inj 5 Mg/Ml Inj 1 Ml) 1 mg IM Q4H PRN PRN Reason: AGITATION Last Admin: 08/23/23 21:53 Dose: 1 mg Heparin Sodium (Porcine) (Heparin 5,000 Unit/Ml Inj 1 Ml) 5,000 unit SUBCUT Q12H ELENA Last Admin: 08/25/23 02:15 Dose: Not Given Heparin Sodium (Porcine) (Heparin 5,000 Unit/Ml Inj 1 Ml) 0 unit IV PRN PRN; Protocol PRN Reason: Heparin weight-base protocol norepinephrine (Levophed) 4 mg in 250 mls @ 0 mls/hr IV .Q0M ELENA; Protocol Last Titration: 08/25/23 03:50 Dose: Infused Piperacillin Sod/Tazobactam (Sod 3.375 gm/ Sodium Chloride) 50 mls @ 12.5 mls/hr IV Q12H ELENA; Protocol Last Admin: 08/25/23 04:54 Dose: 12.5 mls/hr Vancomycin/PEG/NADA/Lysine/Water (Vancocin) 1,750 mg in 350 mls @ 233.333 mls/hr IV Q48H ELENA Last Infusion: 08/24/23 23:20 Dose: Infused Vasopressin (Vasostrict) 40 unit in 100 mls @ 0.075 mls/min IV CONT ELENA Last Admin: 08/25/23 06:21 Dose: 0.08 mls/min Sodium Chloride (Sodium Chloride 0.9%) 500 mls @ 2 mls/hr IV .Q24H ELENA Last Admin: 08/24/23 17:07 Dose: Not Given Sodium Chloride (Sodium Chloride 0.9%) 1,000 mls @ 0 mls/hr IV .Q0M PRN PRN Reason: hypotension or symptomatic Albumin Human (Albumin) 12.5 gm in 50 mls @ 60 mls/hr IV PRN PRN PRN Reason: Hypotension and/or symptomatic Dexmedetomidine/Sodium Chloride (Precedex) 400 mcg in 100 mls @ 0 mls/hr IV .Q0M ELENA; Protocol Last Admin: 08/25/23 04:53 Dose: 0.4 mcg/kg/hr, 14.1 mls/hr Amiodarone HCl/Dextrose (Nexterone) 360 mg in 200 mls @ 0 mls/hr IV .Q0M ELENA; Protocol Last Admin: 08/24/23 23:03 Dose: 0.5 mg/min, 16.67 mls/hr Heparin Sodium/Sodium Chloride (Heparin Drip) 25,000 unit in 500 mls @ 0 mls/hr IV .Q0M ELENA; Protocol Last Titration: 08/25/23 02:49 Dose: 0 unit/kg/hr, 0 mls/hr Lactulose (Lactulose Oral Liq 20 Gm/30 Ml Udc) 10 gm PO DAILY PRN; Protocol PRN Reason: Constipation (see protocol) Lanolin (Lanolin Oint 7 Gm) 1 applic TOPICAL PRN PRN PRN Reason: DRYNESS Magnesium Hydroxide (Magnesium Hydroxide 30 Ml Udc) 30 ml PO DAILY PRN; Protocol PRN Reason: Constipation (see protocol) Methylprednisolone Sodium Succinate (Methylprednisolone Sod Succ 125 Mg/2 Ml Inj) 60 mg IVP Q6H ELENA Last Admin: 08/25/23 12:16 Dose: 60 mg Morphine Sulfate (Morphine 4 Mg/Ml Sdv 1 Ml) 2 mg IVP Q4H PRN PRN Reason: SEVERE PAIN Last Admin: 08/24/23 21:07 Dose: 2 mg Ondansetron HCl (Ondansetron 2 Mg/Ml Sdv 2 Ml) 4 mg IVP Q8H PRN PRN Reason: vomiting, or N/V if npo Pantoprazole Sodium (Pantoprazole 40 Mg Sdv) 40 mg IVP Q24H ELENA Last Admin: 08/24/23 13:51 Dose: 40 mg Vitals/I&O/Wt Last Vital Signs Temp 97.6 F 08/25/23 06:00 Pulse 106 H 08/25/23 13:30 Resp 18 08/25/23 13:30 BP 123/78 08/25/23 13:39 Pulse Ox 92 08/25/23 12:30 O2 Del Method BiPAP 08/25/23 07:20 O2 Flow Rate 5 08/24/23 00:00 FiO2 50 08/25/23 07:40 08/24/23 08/25/23 08/25/23 22:59 06:59 14:59 Intake Total 1135.963 / 7706.514 8498.095 / 2428.783 Output Total 1545 / 1545 0 / 1545 Balance -409.037 / -200.472 6142.095 / 883.783 Weight last 48 hrs Weight 318 lb 13.998 oz Weight 314 lb 2.539 oz Weight 311 lb Weight 310 lb 13.628 oz Physical Exam 2 Narrative: GENERAL: The patient is alert and oriented times two. Not in any acute distress. She is still on a BiPAP HEENT: No significant pallor, icterus or lymphadenopathy.Oral cavity: There are no mucous membrane lesions. NECK: Trachea appears to be central. No masses noted. No JVD or thyromegaly appreciated. RESPIRATORY: Chest is symmetrical. No intercostals muscle retraction or any accessory muscle activation. There is no chest wall tenderness. Breath sounds are heard bilaterally. No rales or rhonchi heard. No evidence of any consolidation. BREASTS: Deferred. HEART: The heart sounds are normal. No S3 or S4. Short systolic murmur in the lower sternal border. No diastolic murmurs.. No pericardial rub ABDOMEN: Obese. No vessel pulsations or distention. No tenderness. No organomegaly appreciated. Bowel sounds are normally heard. : Deferred. RECTAL: Deferred. LYMPHATIC: No lymphadenopathy noted in the neck. EXTREMITIES: No edema or cyanosis. No clubbing. MUSCULOSKELETAL: No acute joint deformities or swelling SKIN: There are no significant rashes or ecchymosis NEUROPSYCHIATRIC: Patient seems to be oriented to place and person. She has expressive aphasia. Grade 3 motor power for the left upper and lower extremity. Urinary Catheter Management: Whitten: Cath Placed During This Visit: yes Reason for Continuing Indwelling Catheter: Accurate Measurement of Urinary Output in Critically Ill Patients Urinary Catheter Date of Insertion: 08/22/23 Urinary Catheter Time of Insertion: 16:00 Data 08/25/23 04:57 08/25/23 02:10 Other Labs: Laboratory Last Values WBC 14.22 10^3/uL (3.29-11.43) H 08/25/23 04:57 RBC 3.56 10^6/uL (3.85-5.65) L 08/25/23 04:57 Hgb 10.70 g/dL (11.27-16.99) L 08/25/23 04:57 Hct 32.6 % (36-47) L 08/25/23 04:57 MCV 91.6 fl (85-98) 08/25/23 04:57 MCH 30.1 pg (27-33) 08/25/23 04:57 MCHC 32.8 g/dL (30-55) 08/25/23 04:57 RDW 14.0 % (12.1-15.1) 08/25/23 04:57 Plt Count 173 10^3/cmm (157-399) D 08/25/23 04:57 MPV 9.8 fL (7.4-10.4) 08/25/23 04:57 Neut % (Auto) 85.1 % 08/25/23 04:57 Lymph % (Auto) 4.8 % 08/25/23 04:57 [place] % (Auto) 7.2 % 08/25/23 04:57 Eos % (Auto) 0.0 % 08/25/23 04:57 Baso % (Auto) 0.2 % 08/25/23 04:57 Neut # (Auto) 12.10 10^3/uL (1.8-7.7) H 08/25/23 04:57 Lymph # (Auto) 0.7 10^3/uL (0.8-4.8) L 08/25/23 04:57 [place] # (Auto) 1.0 10^3/uL (0.2-0.9) H 08/25/23 04:57 Eos # (Auto) 0.0 10^3/uL (0.0-0.8) 08/25/23 04:57 Baso # (Auto) 0.0 10^3/uL (0.0-0.1) 08/25/23 04:57 Nucleated RBC % (auto) 0 % 08/25/23 04:57 Nucleated RBCs # 0.0 /100WBC 08/25/23 04:57 PT 14.80 SECONDS (12.1-14.9) 08/22/23 10:30 INR 1.12 (0.8-1.2) 08/22/23 10:30 APTT 208.6 SECONDS (23.9-36.7) H* 08/25/23 08:42 Specimen Type Arterial 08/22/23 10:29 Sample Site Radial, right 08/22/23 10:29 ABG pH 7.27 (7.35-7.45) L 08/22/23 10:29 ABG pCO2 45.2 mmHg (35-45) H 08/22/23 10:29 ABG pO2 81.4 mmHg (80.0-100.0) 08/22/23 10:29 ABG PO2/FiO2 Ratio 0 08/22/23 10:29 ABG HCO3 20.7 mmol/L (22-26) L 08/22/23 10:29 ABG Base Excess -6.2 mmol/L (-2.0-2.0) L 08/22/23 10:29 [place] Test Pos 08/22/23 10:29 Hematocrit 41.9 % (37-47) 08/22/23 10:29 O2 Delivery Device Nc 08/22/23 10:29 O2 Liters/Min 4.5 % 08/22/23 10:29 FiO2 38.0 % 08/22/23 10:29 Shoe Shanker ID glc 08/22/23 10:29 Sodium 135 mmol/L (136-145) L 08/25/23 02:10 Potassium 4.7 mmol/L (3.5-5.1) 08/25/23 02:10 Chloride 92 mmol/L (98-107) L 08/25/23 02:10 Carbon Dioxide 23 mmol/L (22-29) 08/25/23 02:10 Anion Gap 24.7 (5-19) H 08/25/23 02:10 BUN 47 mg/dL (8-23) H 08/25/23 02:10 Creatinine 4.3 mg/dL (0.5-0.9) H 08/25/23 02:10 GFR Calculation Not Reportable 08/25/23 02:10 Glucose 144 mg/dL (65-115) H 08/25/23 02:10 POC Glucose 136 mg/dL (70-110) H 08/25/23 08:58 Estimat Average Glucose 100 08/23/23 02:50 Hemoglobin A1c 5.1 % (4.0-6.0) 08/23/23 02:50 Calculated Osmolality 295 mOsm/kg (285-295) 08/25/23 02:10 Lactic Acid 0.8 mmol/L (0.5-2.2) 08/22/23 15:28 Lactate 1.0 mmol/L (0.5-2.2) 08/25/23 04:57 Calcium 6.4 mg/dL (8.5-10.5) L 08/25/23 02:10 Ionized Calcium Swapnil 0.7 mmol/L (1.1-1.4) L* 08/24/23 03:50 Phosphorus 8.9 mg/dL (2.5-4.5) H* 08/24/23 03:50 Magnesium 2.5 mg/dL (1.7-2.3) H 08/24/23 03:50 Iron 12 ug/dL (37-145) L 08/22/23 15:28 TIBC 152 mcg/dl 08/22/23 15:28 % Saturation 7.8 % (20-50) L 08/22/23 15:28 Unsat Iron Binding 140 ug/dL (112-347) 08/22/23 15:28 Total Bilirubin 0.5 mg/dL (0.15-1.2) 08/25/23 02:10 Direct Bilirubin 0.30 mg/dL (0.00-0.30) 08/25/23 02:10 AST 215 U/L (0-32) H 08/25/23 02:10 ALT 45 U/L (0-33) H 08/25/23 02:10 Alkaline Phosphatase 182 U/L (35-105) H 08/25/23 02:10 Troponin T Baseline 1181 ng/L (0-10) H* 08/24/23 06:44 Troponin T 120 Minute 1275 ng/L (0-10) H 08/24/23 08:40 Delta Troponin T 94 ABS# (0-10) H* 08/24/23 08:40 Troponin T Hi Sens 6Hr 1587 ng/L (0-10) H 08/24/23 12:35 Troponin T Hi Sens 6Hr Delta 406 ng/L (0-12) H* 08/24/23 12:35 NT-Pro-B Natriuret Pep 3266 pg/mL (0-450) H 08/22/23 10:30 Total Protein 6.0 g/dL (6.6-8.7) L 08/25/23 02:10 Albumin 2.7 g/dL (3.5-5.2) L 08/25/23 02:10 Globulin 3.3 g/dL (1.3-4.6) 08/25/23 02:10 Triglycerides 91 mg/dL (0-150) 08/23/23 02:50 Cholesterol 80 mg/dL (0-200) 08/23/23 02:50 LDL Cholesterol, Calc 38 mg/dL (50-129) L 08/23/23 02:50 HDL Cholesterol 24 mg/dL (60-100) L 08/23/23 02:50 LDL/HDL Ratio 1.58 RATIO (0.00-3.22) 08/23/23 02:50 Cholesterol/HDL Ratio 3.33 mg/dL (0.0-4.40) 08/23/23 02:50 Vitamin B12 1036 pg/mL (232-1245) 08/22/23 10:30 Folate 5.5 ng/mL (4.8-37.3) 08/23/23 02:50 Procalcitonin 14.08 ng/mL (0-0.5) H 08/23/23 02:50 TSH 3.03 uIU/mL (0.27-4.20) 08/22/23 15:28 Urine Color Yellow (Yellow) 08/22/23 11:26 Urine Appearance Cloudy (CLEAR) A 08/22/23 11:26 Urine pH 8 (5-7) H 08/22/23 11:26 Ur Specific [place] 1.010 (1.005-1.030) 08/22/23 11:26 Urine Protein 3+ (Negative) H 08/22/23 11:26 Urine Glucose (UA) Norm (Normal) 08/22/23 11:26 Urine Ketones Negative (Negative) 08/22/23 11:26 Urine Blood 2+ (Negative) H 08/22/23 11:26 Urine Nitrate Negative (Negative) 08/22/23 11:26 Urine Bilirubin Neg (Negative) 08/22/23 11:26 Prot Sulfosalicylic Acd Positive (Negative) 08/22/23 11:26 Urine Urobilinogen Norm mg/dL (Negative) 08/22/23 11:26 Ur Leukocyte Esterase 2+ (Negative) H 08/22/23 11:26 Urine RBC 5-10 /hpf (0-2) H 08/22/23 11:26 Urine WBC Too numerous to cnt /hpf (0-5) H 08/22/23 11:26 Ur Squamous Epith Cells Rare /hpf (0-5) 08/22/23 11:26 Amorphous Sediment Not Reportable 08/22/23 11:26 Urine Bacteria 4+ /hpf (NONE) H 08/22/23 11:26 Hep Bs Antigen Non-reactive (Nonreactive) 08/24/23 03:50 Hep Bs Antibody < 3.5 (11.5-1000) L 08/24/23 03:50 MRSA (PCR) Not detected (NOT DETECTED) 08/22/23 20:05 Micro: Microbiology 08/22/23 11:05 Blood Culture - Final Blood Streptococcus pneumoniae 08/24/23 01:23 Sputum Culture - Preliminary Sputum - Expectorated Sputum A&P Assessment and plan (1) Atrial fibrillation with RVR: Continue on the IV amiodarone for the time being. May switch to p.o., once the IV infusion is finished. (2) Elevated troponin: Continue the heparin and aspirin. Patient had a repeat CT of the head to rule out any hemorrhagic transformation-there is no evidence. (3) Acute renal failure: Patient had the hemodialysis yesterday. Management as per nephrology Qualifiers: Acute renal failure type: with other specified pathological lesion Qualified Code(s): N17.8 - Other acute kidney failure (4) Septic shock: She is on vancomycin and piperacillin (5) Acute respiratory failure with hypoxia: Patient is currently on BiPAP. May be treated with IV Lasix on a as needed basis. (6) Hyperkalemia: Management as above (7) Acute CVA (cerebrovascular accident): Management as per the neurology/primary Plan May continue on the IV amiodarone. Will start on the p.o. after finishing the per gram of infusion Attestations 2 Medical Necessity Statement*: Patient requires continued hospital stay for close monitoring and further management Procedures Arterial Line Size (Gauge): 20 Coding Level of Care Code Acute Code for [facility] Fwd Diagnoses Atrial fibrillation with RVR I48.91 Elevated troponin R79.89 Acute renal failure with other specified pathological lesion in kidney N17.8 Acute renal failure type: with other specified pathological lesion Septic shock A41.9; R65.21 Acute respiratory failure with hypoxia J96.01 Hyperkalemia E87.5 Acute CVA (cerebrovascular accident) I63.9
--- NOTE | 2023-08-25 14:53 | PC.NURSE ---
report called to teto espinoza
--- NOTE | 2023-08-25 15:38 | PC.NURSE ---
arterial line, central line and dialysis line removed. dialysis line to right groin oozing blood prior to pull, unable to stop bleeding. bleeding is a steady venous slow ooze. HCP aware, teto espinoza not willing to take patient today due to bleeding plan to wait and D/C tomorrow. patient and family aware.
--- NOTE | 2023-08-25 16:36 | PC.PT ---
PT evaluation deferred, patient nurse states patient to be comfort care only at this time no further attempts to be made at PT evaluation without further orders, DC PT evaluation order.
[2023-08-25] MEDS: LORazepam 1 mg Tablet PO ×2 (21:51→23:48)
[2023-08-25] MEDS: morphine 10 mg/0.5 mL oral liq UD 5 MG PO (21:52)
[2023-08-26] VITALS: BP 136/77; PULSE 110; RESP 19; TEMP 36.6; O2SAT 96
[2023-08-26] MEDS: LORazepam 2 mg/mL INJ 10 mL MDV 1 MG SUBLINGUAL ×5 (03:04→21:57)
--- NOTE | 2023-08-26 08:47 | P.PN_ITS ---
Subjective 2 Subjective: Patient seems to be more lethargic today. The family has decided to keep her on comfort care. Medications: Medication Review Details: Current Medications Acetaminophen (Acetaminophen 325 Mg Tablet) 650 mg PO Q6H PRN PRN Reason: Mild/Mod Pain Or Temp >/= 101 Al Hydrox/Mg Hydrox/Simethicone (Zfvc-Ved-Bnpqbkrpg-Fany 30 Ml Udc) 15 ml PO Q6H PRN PRN Reason: INDIGESTION Albuterol/Ipratropium (Ipratropium-Albuterol 3 Ml Neb) 3 ml INHALATION Q6H.RESP PRN PRN Reason: SHORTNESS OF BREATH Aspirin (Aspirin 81 Mg Ec Tablet) 81 mg PO DAILY ELENA Last Admin: 08/26/23 08:26 Dose: Not Given Atorvastatin Calcium (Atorvastatin 40 Mg Tablet) 40 mg PO BEDTIME ELENA Last Admin: 08/25/23 21:51 Dose: Not Given Bisacodyl (Bisacodyl 5 Mg Tablet) 10 mg PO DAILY PRN; Protocol PRN Reason: Constipation (see protocol) Glycopyrrolate (Glycopyrrolate 0.2 Mg/Ml Sdv 2 Ml) 0.4 mg IM Q4H PRN PRN Reason: SECRETIONS Haloperidol Lactate (Haloperidol Inj 5 Mg/Ml Inj 1 Ml) 1 mg IM Q4H PRN PRN Reason: AGITATION Last Admin: 08/23/23 21:53 Dose: 1 mg Heparin Sodium (Porcine) (Heparin 5,000 Unit/Ml Inj 1 Ml) 5,000 unit SUBCUT Q12H ELENA Last Admin: 08/26/23 02:49 Dose: Not Given Heparin Sodium (Porcine) (Heparin 5,000 Unit/Ml Inj 1 Ml) 0 unit IV PRN PRN; Protocol PRN Reason: Heparin weight-base protocol norepinephrine (Levophed) 4 mg in 250 mls @ 0 mls/hr IV .Q0M ELENA; Protocol Last Titration: 08/25/23 03:50 Dose: 0 mcg/min, 0 mls/hr Piperacillin Sod/Tazobactam (Sod 3.375 gm/ Sodium Chloride) 50 mls @ 12.5 mls/hr IV Q12H ELENA; Protocol Last Admin: 08/26/23 04:46 Dose: Not Given Vancomycin/PEG/NADA/Lysine/Water (Vancocin) 1,750 mg in 350 mls @ 233.333 mls/hr IV Q48H ELENA Last Infusion: 08/24/23 23:20 Dose: Infused Vasopressin (Vasostrict) 40 unit in 100 mls @ 0.075 mls/min IV CONT ELENA Last Admin: 08/25/23 06:21 Dose: 0.08 mls/min Sodium Chloride (Sodium Chloride 0.9%) 500 mls @ 2 mls/hr IV .Q24H ELENA Last Admin: 08/25/23 17:21 Dose: Not Given Sodium Chloride (Sodium Chloride 0.9%) 1,000 mls @ 0 mls/hr IV .Q0M PRN PRN Reason: hypotension or symptomatic Albumin Human (Albumin) 12.5 gm in 50 mls @ 60 mls/hr IV PRN PRN PRN Reason: Hypotension and/or symptomatic Dexmedetomidine/Sodium Chloride (Precedex) 400 mcg in 100 mls @ 0 mls/hr IV .Q0M ELENA; Protocol Last Admin: 08/25/23 04:53 Dose: 0.4 mcg/kg/hr, 14.1 mls/hr Amiodarone HCl/Dextrose (Nexterone) 360 mg in 200 mls @ 0 mls/hr IV .Q0M ELENA; Protocol Last Admin: 08/24/23 23:03 Dose: 0.5 mg/min, 16.67 mls/hr Heparin Sodium/Sodium Chloride (Heparin Drip) 25,000 unit in 500 mls @ 0 mls/hr IV .Q0M ELENA; Protocol Last Titration: 08/25/23 02:49 Dose: 0 unit/kg/hr, 0 mls/hr Lactulose (Lactulose Oral Liq 20 Gm/30 Ml Udc) 10 gm PO DAILY PRN; Protocol PRN Reason: Constipation (see protocol) Lanolin (Lanolin Oint 7 Gm) 1 applic TOPICAL PRN PRN PRN Reason: DRYNESS Lorazepam (Lorazepam 2 Mg/Ml Inj 10 Ml Mdv) 1 mg SUBLINGUAL Q30M PRN PRN Reason: ANXIETY Last Admin: 08/26/23 03:04 Dose: 1 mg Magnesium Hydroxide (Magnesium Hydroxide 30 Ml Udc) 30 ml PO DAILY PRN; Protocol PRN Reason: Constipation (see protocol) Methylprednisolone Sodium Succinate (Methylprednisolone Sod Succ 125 Mg/2 Ml Inj) 60 mg IVP Q6H [facility] Last Admin: 08/26/23 04:46 Dose: Not Given Morphine Sulfate (Morphine 4 Mg/Ml Sdv 1 Ml) 2 mg IVP Q4H PRN PRN Reason: SEVERE PAIN Last Admin: 08/24/23 21:07 Dose: 2 mg Morphine Sulfate (Morphine 10 Mg/0.5 Ml Oral Liq Ud) 5 mg PO Q2H PRN PRN Reason: PAIN Last Admin: 08/25/23 21:52 Dose: 5 mg Ondansetron HCl (Ondansetron 2 Mg/Ml Sdv 2 Ml) 4 mg IVP Q8H PRN PRN Reason: vomiting, or N/V if npo Pantoprazole Sodium (Pantoprazole 40 Mg Sdv) 40 mg IVP Q24H [facility] Last Admin: 08/25/23 15:42 Dose: Not Given Vitals/I&O/Wt Last Vital Signs Temp 97.8 F 08/26/23 00:00 Pulse 110 H 08/26/23 00:00 Resp 19 H 08/26/23 00:00 BP 136/77 08/26/23 00:00 Pulse Ox 96 08/26/23 00:00 O2 Del Method Nasal Cannula 08/26/23 00:00 O2 Flow Rate 4 08/25/23 20:00 FiO2 50 08/25/23 07:40 08/25/23 08/26/23 08/26/23 22:59 06:59 14:59 Intake Total 240 / 240 Output Total 0 / 0 Balance 240 / 240 0 / 240 Weight last 48 hrs Weight 306 lb 6 oz Weight 318 lb 13.998 oz Weight 314 lb 2.539 oz Weight 311 lb Physical Exam 2 Narrative: GENERAL: The patient is very drowsy today. Slightly tachypneic HEENT: No significant pallor, icterus or lymphadenopathy.Oral cavity: There are no mucous membrane lesions. NECK: Trachea appears to be central. No masses noted. No JVD or thyromegaly appreciated. RESPIRATORY: Chest is symmetrical. No intercostals muscle retraction or any accessory muscle activation. There is no chest wall tenderness. Breath sounds are heard bilaterally. No rales or rhonchi heard. No evidence of any consolidation. BREASTS: Deferred. HEART: The heart sounds are normal. No S3 or S4. Short systolic murmur in the lower sternal border. No diastolic murmurs.. No pericardial rub ABDOMEN: Obese. No vessel pulsations or distention. No tenderness. No organomegaly appreciated. Bowel sounds are normally heard. : Deferred. RECTAL: Deferred. LYMPHATIC: No lymphadenopathy noted in the neck. EXTREMITIES: No edema or cyanosis. No clubbing. MUSCULOSKELETAL: No acute joint deformities or swelling SKIN: There are no significant rashes or ecchymosis NEUROPSYCHIATRIC: Appears to be very drowsy Urinary Catheter Management: Whitten: Cath Placed During This Visit: yes Reason for Continuing Indwelling Catheter: Other Urinary Catheter Date of Insertion: 08/22/23 Urinary Catheter Time of Insertion: 16:00 Data 08/25/23 04:57 08/25/23 02:10 Other Labs: Laboratory Last Values WBC 14.22 10^3/uL (3.29-11.43) H 08/25/23 04:57 RBC 3.56 10^6/uL (3.85-5.65) L 08/25/23 04:57 Hgb 10.70 g/dL (11.27-16.99) L 08/25/23 04:57 Hct 32.6 % (36-47) L 08/25/23 04:57 MCV 91.6 fl (85-98) 08/25/23 04:57 MCH 30.1 pg (27-33) 08/25/23 04:57 MCHC 32.8 g/dL (30-55) 08/25/23 04:57 RDW 14.0 % (12.1-15.1) 08/25/23 04:57 Plt Count 173 10^3/cmm (157-399) D 08/25/23 04:57 MPV 9.8 fL (7.4-10.4) 08/25/23 04:57 Neut % (Auto) 85.1 % 08/25/23 04:57 Lymph % (Auto) 4.8 % 08/25/23 04:57 Sheridan % (Auto) 7.2 % 08/25/23 04:57 Eos % (Auto) 0.0 % 08/25/23 04:57 Baso % (Auto) 0.2 % 08/25/23 04:57 Neut # (Auto) 12.10 10^3/uL (1.8-7.7) H 08/25/23 04:57 Lymph # (Auto) 0.7 10^3/uL (0.8-4.8) L 08/25/23 04:57 Sheridan # (Auto) 1.0 10^3/uL (0.2-0.9) H 08/25/23 04:57 Eos # (Auto) 0.0 10^3/uL (0.0-0.8) 08/25/23 04:57 Baso # (Auto) 0.0 10^3/uL (0.0-0.1) 08/25/23 04:57 Nucleated RBC % (auto) 0 % 08/25/23 04:57 Nucleated RBCs # 0.0 /100WBC 08/25/23 04:57 PT 14.80 SECONDS (12.1-14.9) 08/22/23 10:30 INR 1.12 (0.8-1.2) 08/22/23 10:30 APTT 208.6 SECONDS (23.9-36.7) H* 08/25/23 08:42 Specimen Type Arterial 08/22/23 10:29 Sample Site Radial, right 08/22/23 10:29 ABG pH 7.27 (7.35-7.45) L 08/22/23 10:29 ABG pCO2 45.2 mmHg (35-45) H 08/22/23 10:29 ABG pO2 81.4 mmHg (80.0-100.0) 08/22/23 10:29 ABG PO2/FiO2 Ratio 0 08/22/23 10:29 ABG HCO3 20.7 mmol/L (22-26) L 08/22/23 10:29 ABG Base Excess -6.2 mmol/L (-2.0-2.0) L 08/22/23 10:29 Gilmer Test Pos 08/22/23 10:29 Hematocrit 41.9 % (37-47) 08/22/23 10:29 O2 Delivery Device Nc 08/22/23 10:29 O2 Liters/Min 4.5 % 08/22/23 10:29 FiO2 38.0 % 08/22/23 10:29 [employer] Cable [employer] ID glc 08/22/23 10:29 Sodium 135 mmol/L (136-145) L 08/25/23 02:10 Potassium 4.7 mmol/L (3.5-5.1) 08/25/23 02:10 Chloride 92 mmol/L (98-107) L 08/25/23 02:10 Carbon Dioxide 23 mmol/L (22-29) 08/25/23 02:10 Anion Gap 24.7 (5-19) H 08/25/23 02:10 BUN 47 mg/dL (8-23) H 08/25/23 02:10 Creatinine 4.3 mg/dL (0.5-0.9) H 08/25/23 02:10 GFR Calculation Not Reportable 08/25/23 02:10 Glucose 144 mg/dL (65-115) H 08/25/23 02:10 POC Glucose 136 mg/dL (70-110) H 08/25/23 08:58 Estimat Average Glucose 100 08/23/23 02:50 Hemoglobin A1c 5.1 % (4.0-6.0) 08/23/23 02:50 Calculated Osmolality 295 mOsm/kg (285-295) 08/25/23 02:10 Lactic Acid 0.8 mmol/L (0.5-2.2) 08/22/23 15:28 Lactate 1.0 mmol/L (0.5-2.2) 08/25/23 04:57 Calcium 6.4 mg/dL (8.5-10.5) L 08/25/23 02:10 Ionized Calcium Swapnil 0.7 mmol/L (1.1-1.4) L* 08/24/23 03:50 Phosphorus 8.9 mg/dL (2.5-4.5) H* 08/24/23 03:50 Magnesium 2.5 mg/dL (1.7-2.3) H 08/24/23 03:50 Iron 12 ug/dL (37-145) L 08/22/23 15:28 TIBC 152 mcg/dl 08/22/23 15:28 % Saturation 7.8 % (20-50) L 08/22/23 15:28 Unsat Iron Binding 140 ug/dL (112-347) 08/22/23 15:28 Total Bilirubin 0.5 mg/dL (0.15-1.2) 08/25/23 02:10 Direct Bilirubin 0.30 mg/dL (0.00-0.30) 08/25/23 02:10 AST 215 U/L (0-32) H 08/25/23 02:10 ALT 45 U/L (0-33) H 08/25/23 02:10 Alkaline Phosphatase 182 U/L (35-105) H 08/25/23 02:10 Troponin T Baseline 1181 ng/L (0-10) H* 08/24/23 06:44 Troponin T 120 Minute 1275 ng/L (0-10) H 08/24/23 08:40 Delta Troponin T 94 ABS# (0-10) H* 08/24/23 08:40 Troponin T Hi Sens 6Hr 1587 ng/L (0-10) H 08/24/23 12:35 Troponin T Hi Sens 6Hr Delta 406 ng/L (0-12) H* 08/24/23 12:35 NT-Pro-B Natriuret Pep 3266 pg/mL (0-450) H 08/22/23 10:30 Total Protein 6.0 g/dL (6.6-8.7) L 08/25/23 02:10 Albumin 2.7 g/dL (3.5-5.2) L 08/25/23 02:10 Globulin 3.3 g/dL (1.3-4.6) 08/25/23 02:10 Triglycerides 91 mg/dL (0-150) 08/23/23 02:50 Cholesterol 80 mg/dL (0-200) 08/23/23 02:50 LDL Cholesterol, Calc 38 mg/dL (50-129) L 08/23/23 02:50 HDL Cholesterol 24 mg/dL (60-100) L 08/23/23 02:50 LDL/HDL Ratio 1.58 RATIO (0.00-3.22) 08/23/23 02:50 Cholesterol/HDL Ratio 3.33 mg/dL (0.0-4.40) 08/23/23 02:50 Vitamin B12 1036 pg/mL (232-1245) 08/22/23 10:30 Folate 5.5 ng/mL (4.8-37.3) 08/23/23 02:50 Procalcitonin 14.08 ng/mL (0-0.5) H 08/23/23 02:50 TSH 3.03 uIU/mL (0.27-4.20) 08/22/23 15:28 Urine Color Yellow (Yellow) 08/22/23 11:26 Urine Appearance Cloudy (CLEAR) A 08/22/23 11:26 Urine pH 8 (5-7) H 08/22/23 11:26 Ur Specific Viola 1.010 (1.005-1.030) 08/22/23 11:26 Urine Protein 3+ (Negative) H 08/22/23 11:26 Urine Glucose (UA) Norm (Normal) 08/22/23 11:26 Urine Ketones Negative (Negative) 08/22/23 11:26 Urine Blood 2+ (Negative) H 08/22/23 11:26 Urine Nitrate Negative (Negative) 08/22/23 11:26 Urine Bilirubin Neg (Negative) 08/22/23 11:26 Prot Sulfosalicylic Acd Positive (Negative) 08/22/23 11:26 Urine Urobilinogen Norm mg/dL (Negative) 08/22/23 11:26 Ur Leukocyte Esterase 2+ (Negative) H 08/22/23 11:26 Urine RBC 5-10 /hpf (0-2) H 08/22/23 11:26 Urine WBC Too numerous to cnt /hpf (0-5) H 08/22/23 11:26 Ur Squamous Epith Cells Rare /hpf (0-5) 08/22/23 11:26 Amorphous Sediment Not Reportable 08/22/23 11:26 Urine Bacteria 4+ /hpf (NONE) H 08/22/23 11:26 Hep Bs Antigen Non-reactive (Nonreactive) 08/24/23 03:50 Hep Bs Antibody < 3.5 (11.5-1000) L 08/24/23 03:50 MRSA (PCR) Not detected (NOT DETECTED) 08/22/23 20:05 Micro: Microbiology 08/22/23 11:05 Blood Culture - Final Blood Streptococcus pneumoniae 08/24/23 01:23 Sputum Culture - Preliminary Sputum - Expectorated Sputum A&P Assessment and plan (1) Atrial fibrillation with RVR: Heart rate seems to be fairly under control (2) Elevated troponin: Features suggesting Non ST lesion myocardial infarction. Continue on the aspirin. The therapeutic dose of heparin will be discontinued. (3) Acute renal failure: Management as per nephrology Qualifiers: Acute renal failure type: with other specified pathological lesion Qualified Code(s): N17.8 - Other acute kidney failure (4) Septic shock: Management as per the primary (5) Hyperkalemia: Currently normokalemic (6) Acute CVA (cerebrovascular accident): Management as per the neurology/primary Plan Since the patient is only comfort care, I may sign off at this point. Please feel free to contact me with any further questions about her cardiovascular status Attestations 2 Medical Necessity Statement*: Disposition as per the primary Procedures Arterial Line Size (Gauge): 20 Coding Level of Care Code 83596 Diagnoses Atrial fibrillation with RVR I48.91 Elevated troponin R79.89 Acute renal failure with other specified pathological lesion in kidney N17.8 Acute renal failure type: with other specified pathological lesion Septic shock A41.9; R65.21 Hyperkalemia E87.5 Acute CVA (cerebrovascular accident) I63.9
[2023-08-26 09:16] LABS: SARS Covid-2 Antigen negative (Negative)
[2023-08-26] MEDS: morphine 10 mg/0.5 mL oral liq UD 5 MG PO ×2 (17:21→21:58)
[2023-08-27] VITALS: BP 100/66; PULSE 101; RESP 18; TEMP 36.4; O2SAT 96
[2023-08-27] MEDS: morphine 10 mg/0.5 mL oral liq UD 5 MG PO ×5 (00:52→12:13)
[2023-08-27] MEDS: LORazepam 2 mg/mL INJ 10 mL MDV 1 MG SUBLINGUAL ×4 (00:54→14:35)
[2023-08-27] MEDS: glycopyrrolate 0.2 mg/mL SDV 2 mL 0.400000000000000022 MG IM (03:46)
--- NOTE | 2023-08-27 07:25 | PC.NURSE ---
Right groin bleed Patient had moderate bleeding from right groin throughout shift. Right groin dressing changed 3 times during shift.
[2023-08-27 08:00] VITALS: BP 106/63; PULSE 86; RESP 12; TEMP 36.1; O2SAT 90
--- NOTE | 2023-08-27 10:02 | PC.SOCIAL ---
IMM Update Pg 2 of IMM Updated and reviewed with patient's daughter who verbalized understanding. Copy provided.
--- NOTE | 2023-08-27 15:13 | P.PN_ITS ---
Subjective 2 Subjective: Patient's temporary hemodialysis catheter was removed yesterday when she was moved up to the medical surgical floor. She is resting comfortably in her room right now and I spoke with her daughter. Vitals/I&O/Wt Last Vital Signs Temp 96.9 F L 08/27/23 08:00 Pulse 86 08/27/23 08:00 Resp 12 08/27/23 08:00 BP 106/63 08/27/23 08:00 Pulse Ox 90 08/27/23 08:00 O2 Del Method Nasal Cannula 08/27/23 08:00 O2 Flow Rate 4 08/26/23 20:00 FiO2 50 08/25/23 07:40 08/27/23 08/27/23 08/27/23 06:59 14:59 22:59 Output Total 0 / 0 Balance 0 / 1241.025 Weight last 48 hrs Weight 306 lb 6 oz Weight 306 lb 6 oz Physical Exam 2 Narrative: General: No acute distress, resting comfortably Skin: Catheter insertion site into the right groin is without erythema or exudate. Dressing is clean and dry Urinary Catheter Management: Whitten: Cath Placed During This Visit: yes Reason for Continuing Indwelling Catheter: Hospice/Comfort/Palliative Care Urinary Catheter Date of Insertion: 08/22/23 Urinary Catheter Time of Insertion: 16:00 Data 08/25/23 04:57 08/25/23 02:10 Micro: Microbiology 08/24/23 01:23 Sputum Culture - Preliminary Sputum - Expectorated Sputum Yeast A&P Assessment and plan (1) Acute renal failure: Qualifiers: Acute renal failure type: with other specified pathological lesion Qualified Code(s): N17.8 - Other acute kidney failure (2) Hyperkalemia: Plan Status post temporary hemodialysis catheter insertion Patient is no longer requiring hemodialysis and catheter was removed General surgery will sign off Please reconsult if the need arises Attestations 2 Medical Necessity Statement*: Per primary Procedures Arterial Line Size (Gauge): 20 Coding Level of Care Code 23535 Diagnoses Acute renal failure with other specified pathological lesion in kidney N17.8 Acute renal failure type: with other specified pathological lesion Hyperkalemia E87.5
--- NOTE | 2023-08-27 15:42 | P.HP_ITS ---
Providers/Chief Complaint 2 Admitting Physician: Alberto Nevarez MD Primary Care Provider: Shruthi Daniel MD Chief Complaint: sob, left arm weakness History of Present Illness Mildred Veliz is a 77 year old female with past medical history of hypertension, diastolic heart failure, stroke in 2016, DVT, morbid obesity, COPD was brought into ER for complaint of mild confusion and weakness. She was recently diagnosed with UTI and placed on nitrofurantoin by her PCP. In ER she was found to have right frontal stroke on CT head. She was also found to severe sepsis with shock, acute renal failure, elevated liver function test, and acute hypoxic failure and pulmonary edema secondary to sepsis. She was managed in ICU with BiPAP, mild diuresis diuresis, IV pressors norepinephrine and vasopressin and IV antibiotics vancomycin and Zosyn. She was also consulted by nephrology for acute renal failure with creatinine of 6.3, requiring hemodialysis. She received a temporary dialysis catheter in the right groin by surgery and was given 1 session of hemodialysis. She was also seen by cardiology for acute myocardial ischemia secondary to sepsis with no acute intervention at that point. Her 2D echo showed EF of 55 to 60%. She was doing better, leukocytosis improving , she was off pressors , off BiPAP postdialysis but the patient decided to be treated conservatively. She was alert awake oriented x 3, and it was discussed with family daughter (Sita) at bedside to adopt for hospice. She has been now admitted to inpatient hospice for further care. Review of Systems 2 General: Reports: ROS unobtainable due to medical condition Medications/Allergies Home Medications Medication Instructions Recorded Confirmed Last Taken Type albuterol sulfate 90 mcg/actuation 1 inh inhalation QID PRN Shortness 05/22/20 08/22/23 Unknown History aerosol inhaler (ProAir HFA) Of Breath Or Wheezing carvedilol 6.25 mg tablet 6.25 mg PO BID 05/22/20 08/22/23 08/21/23 History celecoxib 100 mg capsule 100 mg PO BID 05/22/20 08/22/23 08/21/23 History citalopram 10 mg tablet 10 mg PO DAILY 08/22/23 08/22/23 08/21/23 History donepezil 5 mg tablet 5 mg PO BEDTIME 08/22/23 08/22/23 08/21/23 History furosemide 20 mg tablet 20 mg PO DAILY 08/22/23 08/22/23 08/21/23 History tramadol 50 mg tablet 50 mg PO DAILY PRN Pain 08/22/23 08/22/23 Unknown History venlafaxine 150 mg 150 mg PO DAILY 08/22/23 08/22/23 08/21/23 History capsule,extended release 24 hr aspirin 81 mg tablet,delayed 81 mg PO DAILY 30 days #30 tabs 08/25/23 Unknown Rx release atorvastatin 40 mg tablet 40 mg PO BEDTIME 30 days #30 tabs 08/25/23 Unknown Rx ipratropium 0.5 mg-albuterol 3 mg 3 ml inhalation Q6H.RESP 10 days 08/25/23 Unknown Rx (2.5 mg base)/3 mL nebulization #30 mL soln lactulose 20 gram/30 mL oral 10 g (15 mL) PO DAILY PRN 08/25/23 Unknown Rx solution Constipation (see protocol) #15 mL Allergies Allergy/AdvReac Type Severity Reaction Status Date / Time No Known Allergies Allergy Verified 08/22/23 11:03 PFSH Acute 2 PFSH: Medical History Arthritis Morbid obesity with body mass index of 45.0-49.9 in adult Cerebrovascular accident (CVA) History of palpitations DVT of leg (deep venous thrombosis) Surgical History Hx of breast biopsy Social History Smoking and tobacco/nicotine status: former use of tobacco/nicotine Vitals/I&O/Wt Last Vital Signs Temp 96.9 F L 08/27/23 08:00 Pulse 86 08/27/23 08:00 Resp 12 08/27/23 08:00 BP 106/63 08/27/23 08:00 Pulse Ox 90 08/27/23 08:00 O2 Del Method Nasal Cannula 08/27/23 08:00 O2 Flow Rate 4 08/26/23 20:00 FiO2 50 08/25/23 07:40 08/27/23 08/27/23 08/27/23 06:59 14:59 22:59 Output Total 0 / 0 Balance 0 / 1241.025 Weight last 48 hrs Weight 138.969 kg Weight 138.969 kg Physical Exam 2 Narrative: She is more drowsy, not oriented to place and time, lethargic and confused Chest bilateral rhonchi crackles present, breathing heavily on nasal cannula. Cardiovascular normal heart sounds Abdomen soft nontender nondistended Extremities 1+ bilateral lower extremity edema present Urinary Catheter Management: Whitten: Cath Placed During This Visit: yes Reason for Continuing Indwelling Catheter: Hospice/Comfort/Palliative Care Urinary Catheter Date of Insertion: 08/22/23 Urinary Catheter Time of Insertion: 16:00 Data 08/25/23 04:57 08/25/23 02:10 Micro: Microbiology 08/24/23 01:23 Sputum Culture - Preliminary Sputum - Expectorated Sputum Yeast A&P Assessment and plan (1) Acute CVA (cerebrovascular accident): (2) Elevated troponin: (3) Atrial fibrillation with RVR: (4) Hyperkalemia: (5) Acute respiratory failure with hypoxia: (6) Septic shock: (7) Left lower lobe pneumonia: (8) Acute dehydration: (9) Acute renal failure: Qualifiers: Acute renal failure type: with other specified pathological lesion Qualified Code(s): N17.8 - Other acute kidney failure (10) Sepsis: Qualifiers: Acute renal failure type: unspecified Severe sepsis acute organ dysfunction type: acute renal failure Severe sepsis shock status: with septic shock Plan Comfort care measures as per hospice team. Family aware of the plan of care Procedures Arterial Line Size (Gauge): 20 Attestations 2 Medical Necessity Statement*: She is here for inpatient hospice Time Spent in Patient Care: 20 minutes Coding Level [facility] Care [facility] Diagn[facility] Acute CVA (cerebrovascular accident) I63.9 Elevated troponin R79.89 Atrial fibrillation with RVR I48.91 Hyperkalemia E87.5 Acute respiratory failure with hypoxia J96.01 Septic shock A41.9; R65.21 Left lower lobe pneumonia J18.9 Acute dehydration E86.0 Acute renal failure with other specified pathological lesion in kidney N17.8 Acute renal failure type: with other specified pathological lesion Sepsis A41.9 Acute renal failure type: unspecified Severe sepsis acute organ dysfunction type: acute renal failure Severe sepsis shock status: with septic shock Time Spent (min) 20
--- NOTE | 2023-08-27 16:07 | P.DES_ITS ---
Discharge Providers DDS Date of Admission: 08/22/23 13:54 Date Summary Completed: 08/27/23 Attending Provider at Admission: Alberto Nevarez MD Time of : 15:50 Attending Provider at Discharge: Diana Stock MD Primary Care Provider: Shruthi Daniel MD DS Diagnoses Hospital Diagnoses (1) Acute CVA (cerebrovascular accident): (2) Elevated troponin: (3) Atrial fibrillation with RVR: (4) Hyperkalemia: (5) Acute respiratory failure with hypoxia: (6) Septic shock: (7) Left lower lobe pneumonia: (8) Acute dehydration: (9) Acute renal failure: Qualifiers: Acute renal failure type: with other specified pathological lesion Qualified Code(s): N17.8 - Other acute kidney failure (10) Sepsis: Qualifiers: Acute renal failure type: unspecified Severe sepsis acute organ dysfunction type: acute renal failure Severe sepsis shock status: with septic shock Reason for Visit Reason for Visit sob, left arm weakness Brief History: Mildred Veliz is a 77 year old female with past medical history of hypertension, diastolic heart failure, stroke in 2016, DVT, morbid obesity, COPD was brought into ER for complaint of mild confusion and weakness. She was recently diagnosed with UTI and placed on nitrofurantoin by her PCP. In ER she was found to have right frontal stroke on CT head. She was also found to severe sepsis with shock, acute renal failure, elevated liver function test, and acute hypoxic failure and pulmonary edema secondary to sepsis. She was managed in ICU with BiPAP, mild diuresis diuresis, IV pressors norepinephrine and vasopressin and IV antibiotics vancomycin and Zosyn. She was also consulted by nephrology for acute renal failure with creatinine of 6.3, requiring hemodialysis. She received a temporary dialysis catheter in the right groin by surgery and was given 1 session of hemodialysis. She was also seen by cardiology for acute myocardial ischemia secondary to sepsis with no acute intervention at that point. Her 2D echo showed EF of 55 to 60%. She was doing better, leukocytosis improving , she was off pressors , off BiPAP postdialysis but the patient decided to be treated conservatively. She was alert awake oriented x 3, and it was discussed with family daughter (Sita) at bedside to adopt for hospice. Summary Date and Time of Date of : 08/27/23 Time of : 15:50 Summary Summary: She was on hospice care, and at 3:50 PM today to cardiac arrest secondary to severe sepsis uremia and respiratory failure. Additional Data Family: at bedside Additional persons at bedside: other Attending/PCP notified?: I am attending Was code activated?: No Autopsy requested?: No Advance directives?: No Hospice patient?: Yes Discharge Plan Discharge Patient Disposition: Condition: Prescriptions: New aspirin 81 mg Tablet,Delayed Release (Dr/Ec) 81 mg PO DAILY 30 Days Qty: 30 0RF atorvastatin 40 mg Tablet 40 mg PO BEDTIME 30 Days Qty: 30 0RF ipratropium-albuterol 0.5 mg-3 mg(2.5 mg base)/3 mL Solution For Nebulization 3 ml inhalation Q6H.RESP 10 Days Qty: 30 0RF lactulose 20 gram/30 mL Solution 10 g PO DAILY PRN (Reason: Constipation (see protocol)) Qty: 15 0RF Continued carvedilol 6.25 mg tablet 6.25 mg PO BID albuterol sulfate [ProAir HFA] 90 mcg/actuation Hfa Aerosol Inhaler 1 inh INHALATION QID PRN (Reason: Shortness Of Breath Or Wheezing) celecoxib 100 mg capsule 100 mg PO BID donepezil 5 mg tablet 5 mg PO BEDTIME citalopram 10 mg tablet 10 mg PO DAILY venlafaxine 150 mg capsule,extended release 24hr 150 mg PO DAILY tramadol 50 mg tablet 50 mg PO DAILY PRN (Reason: Pain) furosemide 20 mg tablet 20 mg PO DAILY Discontinued nitrofurantoin monohyd/m-cryst 100 mg capsule 100 mg PO BID potassium chloride 8 mEq tablet extended release 8 meq PO DAILY Referrals: Shruthi Daniel MD [Primary Care Provider] - ([facility] to arrange follow up care/appointments/needs.) Discharge Diet: Advance as tolerated Discharge Activity: As per PT/OT instructions Patient Instructions: A-fib (Atrial Fibrillation) (DC), Urinary Tract Infection in Women (DC), Sepsis (DC), Altered Mental Status (ED), Chronic Respiratory Failure (DC), Stroke (DC), Urinary Tract Infection in Older Adults (DC), Opioid Safety, Stroke Stoplight Probable Cause of Probable cause of : Cardiac arrest DS Attestations Time Spent in /Discharge Care*: less than 30 min Quality - AMI: AMI present?: Yes Quality - Stroke: CVA present?: No Symptom Onset Unknown: No Quality - VTE: VTE present?: No Deep Vein Thrombosis/Pulmonary Embolism Present on Admission: No Coding Level of Care Code Acute Code for [facility] Fwd Diagnoses Acute CVA (cerebrovascular accident) I63.9 Elevated troponin R79.89 Atrial fibrillation with RVR I48.91 Hyperkalemia E87.5 Acute respiratory failure with hypoxia J96.01 Septic shock A41.9; R65.21 Left lower lobe pneumonia J18.9 Acute dehydration E86.0 Acute renal failure with other specified pathological lesion in kidney N17.8 Acute renal failure type: with other specified pathological lesion Sepsis A41.9 Acute renal failure type: unspecified Severe sepsis acute organ dysfunction type: acute renal failure Severe sepsis shock status: with septic shock Time Spent (min) 15
--- NOTE | 2023-08-27 16:11 | PC.NURSE ---
At 1550, pt noted with absent of HR, pupil reaction and lung sounds. Dtr standing bedside. LISETH Sanabria notified and 2nd to confirm.
--- NOTE | 2023-08-27 16:47 | PC.NURSE ---
Post mortem cares done with Fela mtz CNA and this nurse.
--- NOTE | 2023-08-27 20:17 | PC.NURSE ---
Addendum entered by Tabitha Carcamo RN 08/27/23 20:18: Patient discharged at 1999. Original Note: [facility] here to retrieve patient. Patient transferred to [facility] and paperwork signed by [facility] personnel and Whitney Su RN.
== END 2023-08-27 20:00 | disposition expired | DRG 871 ==
LOC: ER 10:21 → ICU 14:10 → MEDSURG 08-25 16:41
PROVIDERS: Hospitalist; Internal Medicine; Admitting Provider Student in an Organized Health Care Education/Training Program; Emergency Provider Internal Medicine; PCP Family Medicine; Visit Provider Internal Medicine
DX: A41.9 Sepsis, unspecified organism (principal); I63.9 Cerebral infarction, unspecified; J96.01 Acute respiratory failure with hypoxia; R65.21 Severe sepsis with septic shock; J18.9 Pneumonia, unspecified organism; R47.01 Aphasia; G81.94 Hemiplegia, unspecified affecting left nondominant side; N17.9 Acute kidney failure, unspecified; J81.1 Chronic pulmonary edema; N39.0 Urinary tract infection, site not specified; E87.20 Acidosis, unspecified; I50.32 Chronic diastolic (congestive) heart failure; Z68.42 Body mass index [BMI] 45.0-49.9, adult; J44.0 Chronic obstructive pulmonary disease with (acute) lower respiratory infection; I48.91 Unspecified atrial fibrillation; E87.5 Hyperkalemia; Z87.891 Personal history of nicotine dependence; E86.0 Dehydration; I25.9 Chronic ischemic heart disease, unspecified; R79.89 Other specified abnormal findings of blood chemistry; I95.9 Hypotension, unspecified; I11.0 Hypertensive heart disease with heart failure; Z86.73 Personal history of transient ischemic attack (TIA), and cerebral infarction without residual deficits; Z86.718 Personal history of other venous thrombosis and embolism; E66.01 Morbid (severe) obesity due to excess calories; J44.9 Chronic obstructive pulmonary disease, unspecified
CPT/HCPCS: 36415; 36416; 36556; 36592; 36600; 51702; 70450; 70496; 70498; 71045; 71250; 74176; 80048; 80053; 80061; 80076; 81001; 82330; 82607; 82746; 82803; 82962; 83036; 83540; 83550; 83605; 83735; 83880; 84100; 84132; 84145; 84443; 84484; 85025; 85610; 85730; 86706; 87040; 87070; 87077; 87086; 87106; 87150; 87186; 87205; 87340; 87426; 87641; 90935; 92523; 92610; 93005; 93306; 94640; 94660; 96365; 96367; 96372; 96376; 99285; C1751; C9113; J0283; J0610; J0612; J0696; J1160; J1630; J1644; J1815; J1940; J2060; J2270; J2543; J2598; J2919; J3372; J3490; J7030; J7040; J7626; J7799; Q3014; Q9967